=== PATIENT | female | born 1990 | race Caucasian/White ===

== ENCOUNTER 2016-09-11 21:41 | Emergency (ER) | payer BC ==
[2016-09-11 21:53] VITALS: RESP 18
[2016-09-11] MEDS ORDERED: HYDROmorphone 1 MG/ML 1 ML SYRINGE IVP STA (22:06)
[2016-09-11] MEDS ORDERED: SODIUM CHLORIDE 0.9% 1,000 ML IV STA (22:06)
[2016-09-11] MEDS ORDERED: ONDANSETRON 4 MG/2 ML VIAL IVP STA (22:06)
--- NOTE | 2016-09-11 22:14 | ED ---
General Adult HPI - General Chief complaint: Abdominal Pain Stated complaint: kidney pain/vomiting Time Seen by Provider: 09/11/16 21:59 Source: patient, RN notes reviewed Mode of arrival: ambulatory Limitations: no limitations - History of Present Illness Initial comments: Patient 26-year-old female who presents emergency room today with chief complaint flank pain. Patient does admit to a history of kidney stones and kidney infections. She states that she's had pain over the past week. States is consistent with kidney stone or kidney infection that she's had in the past. She does admit to episodes of nausea and vomiting. States she woke up this morning noticed some numbness tingling going to the left arm. She states she is unsure if she slept fine. She states pain is reproduced with movements and feels the muscles tighten in the left trapezius. Patient denies any specific injury or trauma. Denies any other complaints associated symptoms at this time. Patient denies any recent fever, chills, shortness of breath, chest pain, back pain, abdominal pain, nausea or vomiting, numbness or tingling, dysuria or hematuria, constipation or diarrhea, headaches or visual changes, or any other complaints. - Related Data Home Medications Medication Instructions Recorded Confirmed Ferrous Sulfate [Feosol] 325 mg PO DAILY 09/11/16 09/11/16 Ibuprofen [Motrin] 600 mg PO Q6HR PRN 09/11/16 09/11/16 Multivitamins, Thera [Multivitamin 1 tab PO DAILY 09/11/16 09/11/16 (formulary)] diphenhydrAMINE HCL [Benadryl] 25 mg PO HS 09/11/16 09/11/16 Previous Rx's Medication Instructions Recorded Ondansetron Odt [Zofran ODT] 4 mg PO Q8HR PRN #20 tab 09/11/16 Allergies Allergy/AdvReac Type Severity Reaction Status Date / Time azithromycin Allergy Rash/Hives Verified 09/11/16 22:47 codeine phosphate Allergy Rash/Hives Verified 09/11/16 22:47 [From Tylenol-Codeine #3] metoclopramide HCl Allergy Rash/Hives Verified 09/11/16 22:47 [From Reglan] morphine Allergy Rash/Hives Verified 09/11/16 22:47 ondansetron HCl Allergy Itching Verified 09/11/16 22:47 [From Zofran (as hydrochloride)] Penicillins Allergy Rash/Hives Verified 09/11/16 22:47 Sulfa (Sulfonamide Allergy Rash/Hives Verified 09/11/16 22:47 Antibiotics) Review of Systems ROS Statement: Those systems with pertinent positive or pertinent negative responses have been documented in the HPI. ROS Other: All systems not noted in ROS Statement are negative. Past Medical History Additional Past Medical History / Comment(s): Patient has had kidney stones and history of recurrent urinary tract infections. History of narcotic abuse History of Any Multi-Drug Resistant Organisms: None Reported Past Surgical History: Section Additional Past Surgical History / Comment(s): lithotripsy Past Anesthesia/Blood Transfusion Reactions: No Reported Reaction Past Psychological History: No Psychological Hx Reported Smoking Status: Never smoker Past Alcohol Use History: None Reported Past Drug Use History: None Reported - Past Family History Father Family Medical History: Cancer General Exam - General Exam Comments Initial Comments: General: The patient is awake and alert, in no distress, and does not appear acutely ill. Eye: Pupils are equal, round and reactive to light, extra-ocular movements are intact. No nystagmus. There is normal conjunctiva bilaterally. No signs of icterus. Ears, nose, mouth and throat: There are moist mucous membranes and no oral lesions. Neck: The neck is supple, there is no tenderness or JVD. Cardiovascular: There is a regular rate and rhythm. No murmur, rub or gallop is appreciated. Respiratory: Lungs are clear to auscultation, respirations are non-labored, breath sounds are equal. No wheezes, stridor, rales, or rhonchi. Gastrointestinal: Soft, non-distended, non-tender abdomen without masses or organomegaly noted. There is no rebound or guarding present. No CVA tenderness. Bowel sounds are unremarkable. Musculoskeletal: Normal ROM, no tenderness. Strength 5/5. Sensation intact. Pulses equal bilaterally 2+. Neurological: A&O x 3. CN II-XII intact, There are no obvious motor or sensory deficits. Coordination appears grossly intact. Speech is normal. Skin: Skin is warm and dry and no rashes or lesions are noted. Psychiatric: Cooperative, appropriate mood & affect, normal judgment. Limitations: no limitations Course Vital Signs 09/11/16 21:47 Temperature 98.6 F Pulse Rate 93 Respiratory 18 Rate Blood Pressure 131/90 O2 Sat by Pulse 100 Oximetry Medical Decision Making - Medical Decision Making Patient reexamined at this time shows no signs of distress. Her labs been reviewed are unremarkable. Patient's x-rays negative. Results were discussed with the patient. Patient will be discharged home at this time. Given Zofran and advised to use antibiotics which for pain. - Lab Data Result diagrams: 09/11/16 21:19 09/11/16 21:19 Lab Results 09/11/16 09/11/16 09/11/16 Range/Units 21:19 21:19 21:19 WBC 6.6 (3.8-10.6) k/uL RBC 4.42 (3.80-5.40) m/uL Hgb 12.4 (11.4-16.0) gm/dL Hct 38.1 (34.0-46.0) % MCV 86.4 (80.0-100.0) fL MCH 28.0 (25.0-35.0) pg MCHC 32.4 (31.0-37.0) g/dL RDW 14.3 (11.5-15.5) % Plt Count 343 (150-450) k/uL Neutrophils % 42 % Lymphocytes % 48 % Monocytes % 4 % Eosinophils % 3 % Basophils % 1 % Neutrophils # 2.8 (1.3-7.7) k/uL Lymphocytes # 3.2 (1.0-4.8) k/uL Monocytes # 0.3 (0-1.0) k/uL Eosinophils # 0.2 (0-0.7) k/uL Basophils # 0.1 (0-0.2) k/uL Sodium 141 (137-145) mmol/L Potassium 4.3 (3.5-5.1) mmol/L Chloride 108 H (98-107) mmol/L Carbon Dioxide 23 (22-30) mmol/L Anion Gap 10 mmol/L BUN 9 (7-17) mg/dL Creatinine 0.81 (0.52-1.04) mg/dL Est GFR (MDRD) Af Amer >60 (>60 ml/min/1.73 sqM) Est GFR (MDRD) Non-Af >60 (>60 ml/min/1.73 sqM) Glucose 80 (74-99) mg/dL Calcium 9.7 (8.4-10.2) mg/dL Total Bilirubin 0.5 (0.2-1.3) mg/dL AST 25 (14-36) U/L ALT 25 (9-52) U/L Alkaline Phosphatase 63 (38-126) U/L Total Protein 8.6 H (6.3-8.2) g/dL Albumin 4.6 (3.5-5.0) g/dL Amylase 60 (30-110) U/L Lipase 57 (23-300) U/L Urine Color Urine Appearance (Clear) Urine pH (5.0-8.0) Ur Specific [place] (1.001-1.035) Urine Protein (Negative) Urine Glucose (UA) (Negative) Urine Ketones (Negative) Urine Blood (Negative) Urine Nitrite (Negative) Urine Bilirubin (Negative) Urine Urobilinogen (<2.0) mg/dL Ur Leukocyte Esterase (Negative) Urine RBC (0-5) /hpf Urine WBC (0-5) /hpf Ur Squamous Epith Cells (0-4) /hpf Urine Mucus (None) /hpf Urine HCG, Qual Not Detected (Not Detectd) 09/11/16 Range/Units 21:19 WBC (3.8-10.6) k/uL RBC (3.80-5.40) m/uL Hgb (11.4-16.0) gm/dL Hct (34.0-46.0) % MCV (80.0-100.0) fL MCH (25.0-35.0) pg MCHC (31.0-37.0) g/dL RDW (11.5-15.5) % Plt Count (150-450) k/uL Neutrophils % % Lymphocytes % % Monocytes % % Eosinophils % % Basophils % % Neutrophils # (1.3-7.7) k/uL Lymphocytes # (1.0-4.8) k/uL Monocytes # (0-1.0) k/uL Eosinophils # (0-0.7) k/uL Basophils # (0-0.2) k/uL Sodium (137-145) mmol/L Potassium (3.5-5.1) mmol/L Chloride (98-107) mmol/L Carbon Dioxide (22-30) mmol/L Anion Gap mmol/L BUN (7-17) mg/dL Creatinine (0.52-1.04) mg/dL Est GFR (MDRD) Af Amer (>60 ml/min/1.73 sqM) Est GFR (MDRD) Non-Af (>60 ml/min/1.73 sqM) Glucose (74-99) mg/dL Calcium (8.4-10.2) mg/dL Total Bilirubin (0.2-1.3) mg/dL AST (14-36) U/L ALT (9-52) U/L Alkaline Phosphatase (38-126) U/L Total Protein (6.3-8.2) g/dL Albumin (3.5-5.0) g/dL Amylase (30-110) U/L Lipase (23-300) U/L Urine Color Yellow Urine Appearance Cloudy H (Clear) Urine pH 6.0 (5.0-8.0) Ur Specific [place] 1.019 (1.001-1.035) Urine Protein Negative (Negative) Urine Glucose (UA) Negative (Negative) Urine Ketones Negative (Negative) Urine Blood Negative (Negative) Urine Nitrite Negative (Negative) Urine Bilirubin Negative (Negative) Urine Urobilinogen <2.0 (<2.0) mg/dL Ur Leukocyte Esterase Negative (Negative) Urine RBC 2 (0-5) /hpf Urine WBC 1 (0-5) /hpf Ur Squamous Epith Cells 4 (0-4) /hpf Urine Mucus Rare H (None) /hpf Urine HCG, Qual (Not Detectd) Disposition Clinical Impression: Flank pain Disposition: HOME SELF-CARE Condition: Good Instructions: Abdominal Pain (ED) Additional Instructions: Please use medication as discussed. Please follow-up with family doctor in the next 2 days of symptoms have not improved. Please return to emergency room if the symptoms increase or worsen or for any other concerns. Prescriptions: Ondansetron Odt [Zofran ODT] 4 mg PO Q8HR PRN #20 tab PRN Reason: Nausea Time of Disposition: 23:35
[2016-09-11] MEDS ORDERED: diphenhydrAMINE 50 MG/ML 1 ML VIAL IVP STA (22:25)
[2016-09-11 22:38] LABS: Basophils # (A) 0.1 k/uL (0-0.2); Basophils % (A) 1 %; CH 28.4; CHCM 32.9; Eosinophils # (A) 0.2 k/uL (0-0.7); Eosinophils % (A) 3 %; HCT 38.1 % (34.0-46.0); HDW 2.63; HGB 12.4 gm/dL (11.4-16.0); Luc # (Auto) 0.13; Luc % (Auto) 2; Lymphocytes # (A) 3.2 k/uL (1.0-4.8); Lymphocytes % (A) 48 %; MCHC 32.4 g/dL (31.0-37.0); MCV 86.4 fL (80.0-100.0); Mean Platelet Volume 6.2; Monocytes # (A) 0.3 k/uL (0-1.0); Monocytes % (A) 4 %; Neutrophils # (A) 2.8 k/uL (1.3-7.7); Neutrophils % (A) 42 %; RBC 4.42 m/uL (3.80-5.40); RDW 14.3 % (11.5-15.5); WBC 6.6 k/uL (3.8-10.6); WBC (Perox) 6.54
[2016-09-11 22:48] LABS: ALT 25 U/L (9-52); AST 25 U/L (14-36); Alkaline Phosphatase 63 U/L (38-126); Amylase 60 U/L (30-110); Anion Gap 10 mmol/L; Blood Urea Nitrogen 9 mg/dL (7-17); Calcium 9.7 mg/dL (8.4-10.2); Carbon Dioxide 23 mmol/L (22-30); Chloride 108 mmol/L (98-107); Glucose 80 mg/dL (74-99); Non-African American GFR(MDRD) >60 (>60 ml/min/1.73 sqM); Potassium 4.3 mmol/L (3.5-5.1); Sodium 141 mmol/L (137-145); Total Bilirubin 0.5 mg/dL (0.2-1.3); Total Protein 8.6 g/dL (6.3-8.2)
[2016-09-11 22:50] LABS: Appearance,Urine Cloudy (Clear); Bilirubin,Urine Negative (Negative); Glucose,Urine (UA) Negative (Negative); Ketones,Urine Negative (Negative); Leukocyte Esterase,Urine Negative (Negative); Mucus,Urine Rare /hpf; Nitrite,Urine Negative (Negative); Particle Count 1178; Protein,Urine Negative (Negative); RBC,Urine 2 /hpf (0-5); Specific Gravity,Urine 1.019 (1.001-1.035); Squamous Epithelial Cell,Urine 4 /hpf (0-4); UA Billing (MACRO vs. MICRO) MICRO; Urobilinogen,Urine <2.0 mg/dL (<2.0); WBC,Urine 1 /hpf (0-5)
--- NOTE | 2016-09-11 23:25 | XR ---
EXAM: XR Abdomen, 1 View CLINICAL HISTORY: Reason: abdominal pain TECHNIQUE: Frontal supine view of the abdomen/pelvis. COMPARISON: 01/03/16 single view. FINDINGS: Intraperitoneal space: No gross free air is seen on this single supine image, which excludes the diaphragms. Of incidental note is a curvilinear air-filled tubular structure within the lower pelvis, beginning just above the symphysis pubis and directed superiorly towards the right. Gastrointestinal tract: Unremarkable. No dilation. Mild to moderate amount of colonic stool throughout. Bones/joints: Minimal rightward curvature of the lumbar spine. IMPRESSION: 1. Grossly normal bowel gas pattern, with mild to moderate amount of colonic stool. 2. Air-filled tubular structure projecting over the lower pelvis, possibly representing a vaginal tampon. Correlate clinically.
[2016-09-11 23:45] VITALS: BP 132/74; PULSE 89; TEMP 97.9
== END 2016-09-11 23:47 | disposition home or self-care (01) ==
LOC: EC 21:41
DX: R10.9 Unspecified abdominal pain (principal); R11.2 Nausea with vomiting, unspecified; R20.0 Anesthesia of skin; Z79.899 Other long term (current) drug therapy; Z88.1 Allergy status to other antibiotic agents; Z88.5 Allergy status to narcotic agent; Z88.0 Allergy status to penicillin; Z88.2 Allergy status to sulfonamides; Z88.8 Allergy status to other drugs, medicaments and biological substances
CPT/HCPCS: 36415; 80053; 82150; 83690; 85025; 81001; 81025; 74000; 99284; 96374; 96375 ×2; 96361; J1200; J2405; J1170

== ENCOUNTER 2016-10-15 21:57 | Emergency (ER) | payer BC ==
[2016-10-15 22:02] VITALS: RESP 18
[2016-10-15] MEDS ORDERED: HYDROmorphone 1 MG/ML 1 ML SYRINGE IVP STA (23:00)
[2016-10-15] MEDS ORDERED: RX INFO: IV CONTRAST WAS GIVEN 1 EACH MISC MISCELLANE PRN (23:00)
[2016-10-15] MEDS ORDERED: SODIUM CHLORIDE 0.9% 1,000 ML IV STA (23:00)
[2016-10-15] MEDS ORDERED: ONDANSETRON 4 MG/2 ML VIAL IVP STA (23:00)
[2016-10-15] MEDS ORDERED: diphenhydrAMINE 50 MG/ML 1 ML VIAL IVP STA (23:02)
--- NOTE | 2016-10-15 23:37 | ED ---
Abdominal Pain HPI - General Chief Complaint: Abdominal Pain Stated Complaint: vomiting Time Seen by Provider: 10/15/16 22:46 Source: patient Mode of arrival: ambulatory Limitations: no limitations - History of Present Illness Initial Comments: Been vomiting for the last 2 days does have a history of kidney stones not complaining about abdominal pain in the periumbilical region also threw up about more than 20 times in last 2 days also noticed that she been producing real easy. He denies any fever no chills no diarrhea no frequency urgency dysuria no headaches no neck stiffness - Related Data Home Medications Medication Instructions Recorded Confirmed diphenhydrAMINE HCL [Benadryl] 25 mg PO BID PRN 09/11/16 10/15/16 Ferrous Sulfate [Feosol] 650 mg PO DAILY 10/15/16 10/15/16 Ibuprofen [Motrin] 400 mg PO Q6HR PRN 10/15/16 10/15/16 Pimtrea 1 tab PO DAILY 10/15/16 10/15/16 Previous Rx's Medication Instructions Recorded HYDROmorphone [Dilaudid] 2 mg PO Q8H PRN #15 tab 10/16/16 Allergies Allergy/AdvReac Type Severity Reaction Status Date / Time azithromycin Allergy Rash/Hives Verified 10/15/16 23:11 codeine phosphate Allergy Rash/Hives Verified 10/15/16 23:11 [From Tylenol-Codeine #3] metoclopramide HCl Allergy Rash/Hives Verified 10/15/16 23:11 [From Reglan] morphine Allergy Rash/Hives Verified 10/15/16 23:11 ondansetron HCl Allergy Itching Verified 10/15/16 23:11 [From Zofran (as hydrochloride)] Penicillins Allergy Rash/Hives Verified 10/15/16 23:11 Sulfa (Sulfonamide Allergy Rash/Hives Verified 10/15/16 23:11 Antibiotics) Review of Systems ROS Statement: Those systems with pertinent positive or pertinent negative responses have been documented in the HPI. ROS Other: All systems not noted in ROS Statement are negative. Past Medical History Additional Past Medical History / Comment(s): Patient has had kidney stones and history of recurrent urinary tract infections. History of narcotic abuse History of Any Multi-Drug Resistant Organisms: None Reported Past Surgical History: Section Additional Past Surgical History / Comment(s): lithotripsy Past Anesthesia/Blood Transfusion Reactions: No Reported Reaction Past Psychological History: No Psychological Hx Reported Smoking Status: Never smoker Past Alcohol Use History: None Reported Past Drug Use History: None Reported - Past Family History Father Family Medical History: Cancer General Exam - General Exam Comments Initial Comments: General: The patient is awake and alert, she is very anxious Skin: Skin is warm and dry and no rashes or lesions are noted. Eye: Pupils are equal, round and reactive to light, extra-ocular movements are intact; there is normal conjunctiva bilaterally. Ears, nose, mouth and throat: There are moist mucous membranes and no oral lesions. Neck: The neck is supple, there is no tenderness or JVD. Cardiovascular: There is a regular rate and rhythm. No murmur, rub or gallop is appreciated. Respiratory: To auscultation bilateral, no wheezing no rhonchi no distress respiratory frederick noticed Gastrointestinal: She is tender in the right lower quadrant area, tender and paraumbilical area and tender over the both flanks right to left Back: Tender over right and left flank areas Musculoskeletal: Normal ROM, no tenderness, There is no pedal edema. There is no calf tenderness or swelling. No cords were appreciated. Neurological: CN II-XII intact, Cranial nerves III through XII are intact. There are no obvious motor or sensory deficits. Coordination appears grossly intact. Speech is normal. Psychiatric: Cooperative, appropriate mood & affect, normal judgment. Limitations: no limitations Course Vital Signs 10/15/16 10/16/16 21:59 00:11 Temperature 97.7 F Pulse Rate 71 65 Respiratory 18 18 Rate Blood Pressure 118/65 127/65 O2 Sat by Pulse 99 100 Oximetry - Reevaluation(s) Reevaluation #1: 10/16/16 02:14 He was reassessed several times last reassessment was done at 2 AM, she still having some pain at this point I discussed all her labs including CT of the abdomen CBC, platelets, comprehensive metabolic panel, amylase, lipase, beta- hCG and urinalysis were discussed with the unfortunately she has a 2 kidney stones 01 form is a 2.6 mm another one is a 1.6 mm. Her this time she will be given a Dilaudid 1 mg IV as well as Toradol 30 mg IV to take care of her pain considering this is hopefully she will pass stools and there was no mention in radiology report of the hydroureter or hydronephrosis she be sent home on a prescription of Dilaudid and she was advised to take some Motrin along with Medical Decision Making - Lab Data Result diagrams: 10/16/16 00:37 10/16/16 00:37 Lab Results 10/15/16 10/15/16 10/16/16 Range/Units 23:42 23:42 00:37 WBC 8.8 (3.8-10.6) k/uL RBC 3.89 (3.80-5.40) m/uL Hgb 10.8 L (11.4-16.0) gm/dL Hct 31.8 L (34.0-46.0) % MCV 81.8 (80.0-100.0) fL MCH 27.9 (25.0-35.0) pg MCHC 34.1 (31.0-37.0) g/dL RDW 13.5 (11.5-15.5) % Plt Count 291 (150-450) k/uL Neutrophils % 57 % Lymphocytes % 34 % Monocytes % 5 % Eosinophils % 2 % Basophils % 1 % Neutrophils # 5.0 (1.3-7.7) k/uL Lymphocytes # 3.0 (1.0-4.8) k/uL Monocytes # 0.5 (0-1.0) k/uL Eosinophils # 0.2 (0-0.7) k/uL Basophils # 0.1 (0-0.2) k/uL Sodium (137-145) mmol/L Potassium (3.5-5.1) mmol/L Chloride (98-107) mmol/L Carbon Dioxide (22-30) mmol/L Anion Gap mmol/L BUN (7-17) mg/dL Creatinine (0.52-1.04) mg/dL Est GFR (MDRD) Af Amer (>60 ml/min/1.73 sqM) Est GFR (MDRD) Non-Af (>60 ml/min/1.73 sqM) Glucose (74-99) mg/dL Calcium (8.4-10.2) mg/dL Total Bilirubin (0.2-1.3) mg/dL AST (14-36) U/L ALT (9-52) U/L Alkaline Phosphatase (38-126) U/L Total Protein (6.3-8.2) g/dL Albumin (3.5-5.0) g/dL Amylase (30-110) U/L Lipase (23-300) U/L Urine Color Yellow Urine Appearance Cloudy H (Clear) Urine pH 6.0 (5.0-8.0) Ur Specific [place] 1.021 (1.001-1.035) Urine Protein Trace H (Negative) Urine Glucose (UA) Negative (Negative) Urine Ketones Negative (Negative) Urine Blood Trace H (Negative) Urine Nitrite Negative (Negative) Urine Bilirubin Negative (Negative) Urine Urobilinogen 2.0 (<2.0) mg/dL Ur Leukocyte Esterase Small H (Negative) Urine RBC 3 (0-5) /hpf Urine WBC 8 H (0-5) /hpf Ur Squamous Epith Cells 5 H (0-4) /hpf Calcium Oxalate Crystal Moderate H (None) /hpf Urine Mucus Few H (None) /hpf Urine HCG, Qual Not Detected (Not Detectd) 10/16/16 Range/Units 00:37 WBC (3.8-10.6) k/uL RBC (3.80-5.40) m/uL Hgb (11.4-16.0) gm/dL Hct (34.0-46.0) % MCV (80.0-100.0) fL MCH (25.0-35.0) pg MCHC (31.0-37.0) g/dL RDW (11.5-15.5) % Plt Count (150-450) k/uL Neutrophils % % Lymphocytes % % Monocytes % % Eosinophils % % Basophils % % Neutrophils # (1.3-7.7) k/uL Lymphocytes # (1.0-4.8) k/uL Monocytes # (0-1.0) k/uL Eosinophils # (0-0.7) k/uL Basophils # (0-0.2) k/uL Sodium 140 (137-145) mmol/L Potassium 4.4 (3.5-5.1) mmol/L Chloride 109 H (98-107) mmol/L Carbon Dioxide 24 (22-30) mmol/L Anion Gap 7 mmol/L BUN 9 (7-17) mg/dL Creatinine 0.70 (0.52-1.04) mg/dL Est GFR (MDRD) Af Amer >60 (>60 ml/min/1.73 sqM) Est GFR (MDRD) Non-Af >60 (>60 ml/min/1.73 sqM) Glucose 91 (74-99) mg/dL Calcium 9.1 (8.4-10.2) mg/dL Total Bilirubin 0.5 (0.2-1.3) mg/dL AST 32 (14-36) U/L ALT 31 (9-52) U/L Alkaline Phosphatase 46 (38-126) U/L Total Protein 7.2 (6.3-8.2) g/dL Albumin 4.1 (3.5-5.0) g/dL Amylase 54 (30-110) U/L Lipase 47 (23-300) U/L Urine Color Urine Appearance (Clear) Urine pH (5.0-8.0) Ur Specific [place] (1.001-1.035) Urine Protein (Negative) Urine Glucose (UA) (Negative) Urine Ketones (Negative) Urine Blood (Negative) Urine Nitrite (Negative) Urine Bilirubin (Negative) Urine Urobilinogen (<2.0) mg/dL Ur Leukocyte Esterase (Negative) Urine RBC (0-5) /hpf Urine WBC (0-5) /hpf Ur Squamous Epith Cells (0-4) /hpf Calcium Oxalate Crystal (None) /hpf Urine Mucus (None) /hpf Urine HCG, Qual (Not Detectd) Disposition Clinical Impression: Flank pain, Abdominal pain, Bilateral nephrolithiasis Disposition: HOME SELF-CARE Condition: Good Instructions: Abdominal Pain (ED) Prescriptions: HYDROmorphone [Dilaudid] 2 mg PO Q8H PRN #15 tab PRN Reason: Pain Referrals: Scot Smith MD [Primary Care Provider] - 1-2 days Leroy Lackey MD [STAFF PHYSICIAN] - 1-2 days
[2016-10-16 00:12] LABS: Appearance,Urine Cloudy (Clear); Bilirubin,Urine Negative (Negative); Calcium Oxalate Crystals,Urine Moderate /hpf; Glucose,Urine (UA) Negative (Negative); Ketones,Urine Negative (Negative); Leukocyte Esterase,Urine Small (Negative); Mucus,Urine Few /hpf; Nitrite,Urine Negative (Negative); Particle Count 4559; Protein,Urine Trace (Negative); RBC,Urine 3 /hpf (0-5); Specific Gravity,Urine 1.021 (1.001-1.035); Squamous Epithelial Cell,Urine 5 /hpf (0-4); UA Billing (MACRO vs. MICRO) MICRO; WBC,Urine 8 /hpf (0-5)
[2016-10-16 00:50] LABS: Basophils # (A) 0.1 k/uL (0-0.2); Basophils % (A) 1 %; CH 28.9; CHCM 35.5; Eosinophils # (A) 0.2 k/uL (0-0.7); Eosinophils % (A) 2 %; HCT 31.8 % (34.0-46.0); HDW 3.07; HGB 10.8 gm/dL (11.4-16.0); Luc # (Auto) 0.16; Luc % (Auto) 2; Lymphocytes % (A) 34 %; MCH 27.9 pg (25.0-35.0); MCHC 34.1 g/dL (31.0-37.0); MCV 81.8 fL (80.0-100.0); Mean Platelet Volume 7.6; Monocytes # (A) 0.5 k/uL (0-1.0); Monocytes % (A) 5 %; Neutrophils % (A) 57 %; RBC 3.89 m/uL (3.80-5.40); RDW 13.5 % (11.5-15.5); WBC 8.8 k/uL (3.8-10.6); WBC (Perox) 9.33
[2016-10-16 00:58] LABS: ALT 31 U/L (9-52); AST 32 U/L (14-36); Alkaline Phosphatase 46 U/L (38-126); Amylase 54 U/L (30-110); Anion Gap 7 mmol/L; Blood Urea Nitrogen 9 mg/dL (7-17); Calcium 9.1 mg/dL (8.4-10.2); Carbon Dioxide 24 mmol/L (22-30); Chloride 109 mmol/L (98-107); Glucose 91 mg/dL (74-99); Non-African American GFR(MDRD) >60 (>60 ml/min/1.73 sqM); Potassium 4.4 mmol/L (3.5-5.1); Sodium 140 mmol/L (137-145); Total Bilirubin 0.5 mg/dL (0.2-1.3); Total Protein 7.2 g/dL (6.3-8.2)
--- NOTE | 2016-10-16 01:20 | CT ---
EXAM: CT Abdomen and Pelvis With Intravenous Contrast CLINICAL HISTORY: Reason: abdominal pain TECHNIQUE: Axial computed tomography images of the abdomen and pelvis with intravenous contrast. CTDI is 5.1 mGy and DLP is 241 mGy-cm. Axial delayed images were also obtained. CTDI is 5.2 mGy and DLP is 110 mGy-cm. This CT exam was performed using one or more of the following dose reduction techniques: automated exposure control, adjustment of the mA and/or kV according to patient size, and/or use of iterative reconstruction technique. Coronal and sagittal reformatted images were created and reviewed. COMPARISON: CT 01/08/16 FINDINGS: Lower thorax: No acute findings. ABDOMEN: Liver: Unremarkable. No mass. Gallbladder and bile ducts: Unremarkable. No calcified stones. No ductal dilation. Pancreas: Unremarkable. No mass. No ductal dilation. Spleen: Borderline enlarged spleen. Adrenals: Unremarkable. No mass. Kidneys and ureters: Left renal 2.7 mm calculus. Right renal 1.6 mm calculus. Stomach and bowel: Unremarkable. No obstruction. No mucosal thickening. Appendix: No findings to suggest acute appendicitis. PELVIS: Bladder: Unremarkable. No mass. Reproductive: Unremarkable as visualized. ABDOMEN and PELVIS: Intraperitoneal space: Trace amount of free fluid which may be physiologic. Bones/joints: No acute fracture. No dislocation. Soft tissues: Unremarkable. Vasculature: Unremarkable. No abdominal aortic aneurysm. Lymph nodes: Unremarkable. No enlarged lymph nodes. IMPRESSION: 1. Left renal 2.7 mm calculus. Right renal 1.6 mm calculus. 2. Trace amount of free fluid which may be physiologic. 3. Borderline enlarged spleen.
[2016-10-16] MEDS ORDERED: KETOROLAC 30 MG/ML 1 ML VIAL IVP STA (02:10)
[2016-10-16] MEDS ORDERED: HYDROmorphone 1 MG/ML 1 ML SYRINGE IVP STA (02:12)
[2016-10-16 02:17] VITALS: BP 113/64; PULSE 69; TEMP 97.9
== END 2016-10-16 02:33 | disposition home or self-care (01) ==
LOC: EC 21:57
DX: N20.0 Calculus of kidney (principal); Z87.442 Personal history of urinary calculi; Z79.899 Other long term (current) drug therapy; Z88.1 Allergy status to other antibiotic agents; Z88.2 Allergy status to sulfonamides; Z88.0 Allergy status to penicillin; Z88.5 Allergy status to narcotic agent; Z88.8 Allergy status to other drugs, medicaments and biological substances; Z98.890 Other specified postprocedural states
CPT/HCPCS: 99284; 96374; 96375 ×3; 96376; 96361 ×3; 36415; 80053; 82150; 83690; 85025; 81001; 81025; 87086; 74177; J1200; J2405; J1885; J1170 ×2; Q9967

== ENCOUNTER 2016-10-17 19:25 | Emergency (ER) | payer BC ==
[2016-10-17] MEDS ORDERED: KETOROLAC 30 MG/ML 1 ML VIAL IVP STA ×2 (20:33→22:36)
[2016-10-17] MEDS ORDERED: diphenhydrAMINE 50 MG/ML 1 ML VIAL IVP STA ×2 (20:33→22:36)
[2016-10-17] MEDS ORDERED: ONDANSETRON 4 MG/2 ML VIAL IVP STA (20:33)
[2016-10-17] MEDS ORDERED: HYDROmorphone 1 MG/ML 1 ML SYRINGE IVP STA ×2 (20:33→22:37)
[2016-10-17] MEDS ORDERED: SODIUM CHLORIDE 0.9% 1,000 ML IV ONE (20:33)
--- NOTE | 2016-10-17 21:04 | ED ---
Female Urogenital HPI - General Chief complaint: Urogenital Stated complaint: kidney stones Time Seen by Provider: 10/17/16 20:09 Source: patient Mode of arrival: wheelchair Limitations: no limitations - History of Present Illness Initial comments: The patient is a 26-year-old female who presents to the ED with a chief complaint of flank pain and abdominal pain. Patient states that her pain has been present over the course of the past 4 days. She states that she came to the [facility] ED when the pain began and had a CT abdomen and pelvis performed that demonstrated bilateral renal stones without any evidence of ureteral stone or obstruction. The patient also had a negative UA for hematuria. She was diagnosed with nondescript abdominal pain and discharged home with oral Dilaudid and Zofran. The patient states that she's been taking these medications without any relief of her symptoms. She states that she's also been having numbness of her upper and lower extremities. She states that this has been periodic over the course the past 6 months. The patient also cites a small amount of hematuria. Reviewing the patient's prior visits, she has been to the ED multiple times in the past for the same complaint. Reviewing the patient's MAPS, it is noted that the patient has received multiple prescriptions for narcotic medications over the course the past 6 months. In addition, the patient was on Suboxone within the past year. - Related Data Home Medications Medication Instructions Recorded Confirmed Ferrous Sulfate [Feosol] 650 mg PO DAILY 10/15/16 10/17/16 Ibuprofen [Motrin] 400 mg PO Q6HR PRN 10/15/16 10/17/16 Ondansetron Odt [Zofran Odt] 4 mg PO DAILY PRN 10/17/16 10/17/16 Previous Rx's Medication Instructions Recorded HYDROmorphone [Dilaudid] 2 mg PO Q8H PRN #15 tab 10/16/16 Nitrofurantoin Monohyd/M-Cryst 100 mg PO BID #10 capsule 10/17/16 [Macrobid 100 mg Capsule] Allergies Allergy/AdvReac Type Severity Reaction Status Date / Time azithromycin Allergy Rash/Hives Verified 10/17/16 20:16 codeine phosphate Allergy Rash/Hives Verified 10/17/16 20:16 [From Tylenol-Codeine #3] metoclopramide HCl Allergy Rash/Hives Verified 10/17/16 20:16 [From Reglan] morphine Allergy Rash/Hives Verified 10/17/16 20:16 ondansetron HCl Allergy Itching Verified 10/17/16 20:16 [From Zofran (as hydrochloride)] Penicillins Allergy Rash/Hives Verified 10/17/16 20:16 Sulfa (Sulfonamide Allergy Rash/Hives Verified 10/17/16 20:16 Antibiotics) Review of Systems ROS Statement: Those systems with pertinent positive or pertinent negative responses have been documented in the HPI. ROS Other: All systems not noted in ROS Statement are negative. Constitutional: Denies: fever, chills, weakness ENT: Denies: ear pain, throat pain Respiratory: Denies: cough, dyspnea, wheezes, hemoptysis Cardiovascular: Denies: chest pain, palpitations, dyspnea on exertion Endocrine: Denies: fatigue Gastrointestinal: Reports: abdominal pain, nausea. Denies: vomiting, diarrhea, constipation, hematemesis Genitourinary: Reports: dysuria, frequency, hematuria. Denies: urgency Musculoskeletal: Denies: back pain Skin: Denies: rash, lesions Neurological: Denies: headache, weakness, numbness Psychiatric: Denies: anxiety, depression Past Medical History Additional Past Medical History / Comment(s): Patient has had kidney stones and history of recurrent urinary tract infections. History of narcotic abuse History of Any Multi-Drug Resistant Organisms: None Reported Past Surgical History: Section Additional Past Surgical History / Comment(s): lithotripsy Past Anesthesia/Blood Transfusion Reactions: No Reported Reaction Past Psychological History: No Psychological Hx Reported Smoking Status: Never smoker Past Alcohol Use History: None Reported Past Drug Use History: None Reported - Past Family History Father Family Medical History: Cancer General Exam Limitations: no limitations General appearance: alert, in no apparent distress Head exam: Present: atraumatic, normocephalic Eye exam: Present: normal appearance, PERRL, EOMI Pupils: Present: normal accommodation ENT exam: Present: normal exam, mucous membranes dry Neck exam: Present: normal inspection, full ROM Respiratory exam: Present: normal lung sounds bilaterally. Absent: respiratory distress, wheezes, rales, rhonchi, stridor Cardiovascular Exam: Present: regular rate, normal rhythm GI/Abdominal exam: Present: soft. Absent: distended, tenderness, guarding, rebound Extremities exam: Present: normal inspection Back exam: Present: normal inspection, full ROM Neurological exam: Present: alert, oriented X3 Psychiatric exam: Present: normal affect, normal mood Skin exam: Present: warm, dry, intact Course Vital Signs 10/17/16 19:55 Temperature 99.3 F Pulse Rate 86 Respiratory 16 Rate Blood Pressure 114/71 O2 Sat by Pulse 98 Oximetry Medical Decision Making - Medical Decision Making The patient is a 26-year-old female who presents to the ED with a chief complaint of abdominal pain. Patient states that the pain is located throughout her abdomen. She states that is specifically located in the periumbilical region with radiation the bilateral flank regions. Patient denies any fevers or chills. She states the pain has been present over the course the past 4 days. She did have a computed tomography scan performed about 4 days ago that demonstrated no evidence of any acute abdominal process. Patient did have evidence of bilateral renal stones. However, there is no evidence of any ureteral stone or obstruction. As such, patient was discharged home. Patient states that she has a follow-up with urology tomorrow but could not make it to the appointment secondary to pain. Given the patient has been to the ED multiple times for the same complaint and is often not been found to have any discernible pathology, will check ultrasound of kidneys to rule out hydronephrosis and an acute abdominal series to rule out obstruction. Will recheck patient's blood work to ensure that there is no evidence of any acute infection. Check UA as well. Will treat patient with narcotic pain medications if this helps to resolve her symptoms. 11:31 PM Updated the patient of overall findings. There is no evidence of obstructing ureteral stone. Patient has renal stones present bilaterally. Otherwise, acute abdominal series demonstrates evidence of constipation. I suspect that this is secondary to the patient's use of narcotic medications on a regular basis. The patient has no hematuria or RBCs in her urine. She does have evidence of a likely UTI. Will send patient home with Macrobid. Advised patient that she would benefit from clearing her bowels with a medication like magnesium citrate. Patient has a follow-up appointment with her urologist tomorrow. I have encouraged her to keep this appointment. Answered all the patient's questions to her satisfaction. She will be discharged at this point time. - Lab Data Result diagrams: 10/17/16 21:00 10/17/16 21:00 Lab Results 10/17/16 10/17/16 10/17/16 Range/Units 21:00 21:00 21:00 WBC 8.5 (3.8-10.6) k/uL RBC 3.92 (3.80-5.40) m/uL Hgb 11.1 L (11.4-16.0) gm/dL Hct 33.7 L (34.0-46.0) % MCV 86.1 (80.0-100.0) fL MCH 28.5 (25.0-35.0) pg MCHC 33.0 (31.0-37.0) g/dL RDW 13.9 (11.5-15.5) % Plt Count 355 (150-450) k/uL Neutrophils % 57 % Lymphocytes % 34 % Monocytes % 4 % Eosinophils % 2 % Basophils % 1 % Neutrophils # 4.9 (1.3-7.7) k/uL Lymphocytes # 2.9 (1.0-4.8) k/uL Monocytes # 0.4 (0-1.0) k/uL Eosinophils # 0.2 (0-0.7) k/uL Basophils # 0.1 (0-0.2) k/uL Sodium 139 (137-145) mmol/L Potassium 3.9 (3.5-5.1) mmol/L Chloride 104 (98-107) mmol/L Carbon Dioxide 24 (22-30) mmol/L Anion Gap 11 mmol/L BUN 9 (7-17) mg/dL Creatinine 0.69 (0.52-1.04) mg/dL Est GFR (MDRD) Af Amer >60 (>60 ml/min/1.73 sqM) Est GFR (MDRD) Non-Af >60 (>60 ml/min/1.73 sqM) Glucose 72 L (74-99) mg/dL Calcium 9.3 (8.4-10.2) mg/dL Magnesium 1.9 (1.6-2.3) mg/dL Total Bilirubin 0.4 (0.2-1.3) mg/dL AST 68 H (14-36) U/L ALT 77 H (9-52) U/L Alkaline Phosphatase 71 (38-126) U/L Total Protein 7.8 (6.3-8.2) g/dL Albumin 4.3 (3.5-5.0) g/dL Urine Color Light Yellow Urine Appearance Clear (Clear) Urine pH 7.0 (5.0-8.0) Ur Specific [place] 1.009 (1.001-1.035) Urine Protein Negative (Negative) Urine Glucose (UA) Negative (Negative) Urine Ketones Negative (Negative) Urine Blood Negative (Negative) Urine Nitrite Negative (Negative) Urine Bilirubin Negative (Negative) Urine Urobilinogen <2.0 (<2.0) mg/dL Ur Leukocyte Esterase Small H (Negative) Urine RBC <1 (0-5) /hpf Urine WBC 10 H (0-5) /hpf Ur Squamous Epith Cells 1 (0-4) /hpf Urine Bacteria Rare H (None) /hpf Urine Mucus Rare H (None) /hpf Urine HCG, Qual (Not Detectd) 10/17/16 Range/Units 21:00 WBC (3.8-10.6) k/uL RBC (3.80-5.40) m/uL Hgb (11.4-16.0) gm/dL Hct (34.0-46.0) % MCV (80.0-100.0) fL MCH (25.0-35.0) pg MCHC (31.0-37.0) g/dL RDW (11.5-15.5) % Plt Count (150-450) k/uL Neutrophils % % Lymphocytes % % Monocytes % % Eosinophils % % Basophils % % Neutrophils # (1.3-7.7) k/uL Lymphocytes # (1.0-4.8) k/uL Monocytes # (0-1.0) k/uL Eosinophils # (0-0.7) k/uL Basophils # (0-0.2) k/uL Sodium (137-145) mmol/L Potassium (3.5-5.1) mmol/L Chloride (98-107) mmol/L Carbon Dioxide (22-30) mmol/L Anion Gap mmol/L BUN (7-17) mg/dL Creatinine (0.52-1.04) mg/dL Est GFR (MDRD) Af Amer (>60 ml/min/1.73 sqM) Est GFR (MDRD) Non-Af (>60 ml/min/1.73 sqM) Glucose (74-99) mg/dL Calcium (8.4-10.2) mg/dL Magnesium (1.6-2.3) mg/dL Total Bilirubin (0.2-1.3) mg/dL AST (14-36) U/L ALT (9-52) U/L Alkaline Phosphatase (38-126) U/L Total Protein (6.3-8.2) g/dL Albumin (3.5-5.0) g/dL Urine Color Urine Appearance (Clear) Urine pH (5.0-8.0) Ur Specific [place] (1.001-1.035) Urine Protein (Negative) Urine Glucose (UA) (Negative) Urine Ketones (Negative) Urine Blood (Negative) Urine Nitrite (Negative) Urine Bilirubin (Negative) Urine Urobilinogen (<2.0) mg/dL Ur Leukocyte Esterase (Negative) Urine RBC (0-5) /hpf Urine WBC (0-5) /hpf Ur Squamous Epith Cells (0-4) /hpf Urine Bacteria (None) /hpf Urine Mucus (None) /hpf Urine HCG, Qual Not Detected (Not Detectd) Disposition Clinical Impression: Bilateral flank pain, Constipation, Renal calculus, bilateral, Acute UTI Disposition: HOME SELF-CARE Condition: Good Instructions: Urinary Tract Infection in Women (ED) Additional Instructions: Please follow up with urology for your appointment tomorrow. Please return to the ED should he have worsening symptoms at home. I have prescribed an antibiotic to help treat your urinary tract infection. Prescriptions: Nitrofurantoin Monohyd/M-Cryst [Macrobid 100 mg Capsule] 100 mg PO BID #10 capsule Referrals: Scot Smith MD [Primary Care Provider] - 1-2 days (Please follow up with Dr. Smith as needed) Time of Disposition: 23:30
[2016-10-17 21:24] LABS: Appearance,Urine Clear (Clear); Bacteria,Urine Rare /hpf; Bilirubin,Urine Negative (Negative); Glucose,Urine (UA) Negative (Negative); Ketones,Urine Negative (Negative); Leukocyte Esterase,Urine Small (Negative); Mucus,Urine Rare /hpf; Nitrite,Urine Negative (Negative); Particle Count 716; Protein,Urine Negative (Negative); RBC,Urine <1 /hpf (0-5); Specific Gravity,Urine 1.009 (1.001-1.035); Squamous Epithelial Cell,Urine 1 /hpf (0-4); UA Billing (MACRO vs. MICRO) MICRO; Urobilinogen,Urine <2.0 mg/dL (<2.0); WBC,Urine 10 /hpf (0-5)
[2016-10-17 21:25] LABS: Basophils # (A) 0.1 k/uL (0-0.2); Basophils % (A) 1 %; CH 28.7; CHCM 33.4; Eosinophils # (A) 0.2 k/uL (0-0.7); Eosinophils % (A) 2 %; HCT 33.7 % (34.0-46.0); HDW 2.77; HGB 11.1 gm/dL (11.4-16.0); Luc # (Auto) 0.17; Luc % (Auto) 2; Lymphocytes # (A) 2.9 k/uL (1.0-4.8); Lymphocytes % (A) 34 %; MCH 28.5 pg (25.0-35.0); MCV 86.1 fL (80.0-100.0); Mean Platelet Volume 6.6; Monocytes # (A) 0.4 k/uL (0-1.0); Monocytes % (A) 4 %; Neutrophils # (A) 4.9 k/uL (1.3-7.7); Neutrophils % (A) 57 %; RBC 3.92 m/uL (3.80-5.40); RDW 13.9 % (11.5-15.5); WBC 8.5 k/uL (3.8-10.6); WBC (Perox) 8.72
[2016-10-17 21:39] LABS: ALT 77 U/L (9-52); AST 68 U/L (14-36); Alkaline Phosphatase 71 U/L (38-126); Anion Gap 11 mmol/L; Blood Urea Nitrogen 9 mg/dL (7-17); Calcium 9.3 mg/dL (8.4-10.2); Carbon Dioxide 24 mmol/L (22-30); Chloride 104 mmol/L (98-107); Glucose 72 mg/dL (74-99); Magnesium 1.9 mg/dL (1.6-2.3); Non-African American GFR(MDRD) >60 (>60 ml/min/1.73 sqM); Potassium 3.9 mmol/L (3.5-5.1); Sodium 139 mmol/L (137-145); Total Bilirubin 0.4 mg/dL (0.2-1.3); Total Protein 7.8 g/dL (6.3-8.2)
--- NOTE | 2016-10-17 22:34 | US ---
INDICATION: History of renal stone, rule out hydronephrosis. TECHNIQUE: Real time imaging of the kidneys is performed in sagittal and transverse projections. COMPARISON: CT abdomen and pelvis with contrast, 10/16/16. FINDINGS: The kidneys are normal in size, without hydronephrosis or perinephric collection. Right Kidney: 10.0 x 4.7 x 4.5 cm Left Kidney: 10.0 x 4.6 x 4.3 cm There are echogenic nonobstructing foci in both kidneys measuring 4 mm. Urinary bladder is normal in appearance. Bilateral ureteral jets are visualized. IMPRESSION: 1. No evidence of hydronephrosis. 2. Nonobstructing 4 mm echogenic foci in both kidneys, possibly nonobstructing stones.
--- NOTE | 2016-10-17 23:03 | XR ---
INDICATION: Abdominal pain COMPARISON: CT abdomen and pelvis 10/16/16 FINDINGS: Upright frontal view of the chest and upright and supine frontal views of the abdomen are reviewed. The lungs are clear. The cardiac and mediastinal contours are normal. No evidence of extraluminal air under the diaphragms. The abdominal films demonstrate a normal bowel gas pattern. No bowel distention or air-fluid levels. No evidence of organomegaly, abnormal calcifications or obvious soft tissue masses. The osseous structures are intact. IMPRESSION: Normal acute abdominal series.
[2016-10-17 23:54] VITALS: BP 122/84; PULSE 84; RESP 18; TEMP 98.9
== END 2016-10-17 23:53 | disposition home or self-care (01) ==
LOC: EC 19:25
DX: N20.0 Calculus of kidney (principal); N39.0 Urinary tract infection, site not specified; K59.00 Constipation, unspecified; Z79.899 Other long term (current) drug therapy; Z88.1 Allergy status to other antibiotic agents; Z88.5 Allergy status to narcotic agent; Z88.0 Allergy status to penicillin; Z88.2 Allergy status to sulfonamides; Z88.8 Allergy status to other drugs, medicaments and biological substances; Z98.890 Other specified postprocedural states
CPT/HCPCS: 99284; 96374; 96375 ×3; 96376 ×3; 96361; 36415; 80053; 83735; 85025; 81001; 81025; 87086; 74022; 76770; J1200; J2405; J1885; J1170

== ENCOUNTER 2016-10-23 23:02 | Emergency (ER) | payer BC ==
[2016-10-23] MEDS ORDERED: SODIUM CHLORIDE 0.9% 1,000 ML IV ONE (23:24)
[2016-10-23] MEDS ORDERED: KETOROLAC 30 MG/ML 1 ML VIAL IVP STA (23:24)
[2016-10-23] MEDS ORDERED: HYDROmorphone 1 MG/ML 1 ML SYRINGE IVP STA (23:25)
[2016-10-23] MEDS ORDERED: ONDANSETRON 4 MG/2 ML VIAL IVP STA (23:25)
--- NOTE | 2016-10-23 23:29 | ED ---
General Adult HPI - General Chief complaint: Nausea/Vomiting/Diarrhea Stated complaint: Bilat Flank Pain Time Seen by Provider: 10/23/16 23:14 Source: patient, RN notes reviewed, old records reviewed Mode of arrival: wheelchair Limitations: no limitations - History of Present Illness Initial comments: 26-year-old female presenting for bilateral flank pain and nausea vomiting. Patient states history of multiple kidney stones. She was seen about 2 weeks ago for similar symptoms. She states she has been having persistent pain since that time but it got much worse over the last 2 days. She states she is having difficulty keeping any food or drink down as of today. States she did try an oral Zofran at home but it didn't seem to improve her symptoms. States she did follow up with Dr. Dumont and is scheduled for lithotripsy and another procedure on November 06. She denies any fevers or chills. She does state she has hematuria associated. She denies pain associated. - Related Data Home Medications Medication Instructions Recorded Confirmed Ferrous Sulfate [Feosol] 650 mg PO DAILY 10/15/16 10/23/16 Ondansetron Odt [Zofran Odt] 4 mg PO DAILY PRN 10/17/16 10/23/16 Desog-E.estradiol/E.estradiol 1 tab PO DAILY 10/23/16 10/23/16 [Mircette 28 Day Tablet] Previous Rx's Medication Instructions Recorded HYDROcodone/APAP 5-325MG [[place] 1 tab PO Q6HR PRN #12 tab 10/24/16 5-325] Ibuprofen [Motrin] 800 mg PO Q8HR PRN #21 tab 10/24/16 Allergies Allergy/AdvReac Type Severity Reaction Status Date / Time azithromycin Allergy Rash/Hives/ Verified 10/23/16 23:11 Dyspnea codeine phosphate Allergy Rash/Hives Verified 10/23/16 23:08 [From Tylenol-Codeine #3] metoclopramide HCl Allergy Rash/Hives Verified 10/23/16 23:08 [From Reglan] morphine Allergy Rash/Hives Verified 10/23/16 23:08 ondansetron HCl Allergy Itching Verified 10/23/16 23:08 [From Zofran (as hydrochloride)] Penicillins Allergy Rash/Hives Verified 10/23/16 23:08 Sulfa (Sulfonamide Allergy Rash/Hives Verified 10/23/16 23:08 Antibiotics) Review of Systems ROS Statement: Those systems with pertinent positive or pertinent negative responses have been documented in the HPI. ROS Other: All systems not noted in ROS Statement are negative. Past Medical History Additional Past Medical History / Comment(s): Patient has had kidney stones and history of recurrent urinary tract infections. History of narcotic abuse History of Any Multi-Drug Resistant Organisms: None Reported Past Surgical History: Section Additional Past Surgical History / Comment(s): lithotripsy Past Anesthesia/Blood Transfusion Reactions: No Reported Reaction Past Psychological History: No Psychological Hx Reported Smoking Status: Never smoker Past Alcohol Use History: None Reported Past Drug Use History: None Reported - Past Family History Father Family Medical History: Cancer General Exam - General Exam Comments Initial Comments: General: Awake and Alert. No acute distress. Does not appear acutely ill. Patient appears uncomfortable. Eyes: PATRICIA, EOM intact. No nystagmus. No scleral icterus. HENT: Atraumatic, normocephalic. Mucous membranes moist. Neck: The neck is supple, there is no tenderness or JVD. Trachea midline. Cardiovascular: Regular rate and rhythm. No murmur, rub, or gallop is appreciated. Distal pulses intact. Respiratory: Lungs are clear to auscultation bilaterally. No wheezes, rales, rhonchi. No respiratory distress. Gastrointestinal: Soft, Nontender. No rebound or guarding. Non-distended. No masses or organomegaly noted. Bilateral CVA tenderness. Musculoskeletal: No tenderness. Normal ROM. No gross deformity. No strength deficits. Neurological: A&Ox3. There are no obvious motor or sensory deficits. Coordination appears grossly intact. Speech is normal. Skin: Skin is warm and dry and no rashes or lesions are noted. Psychiatric: Cooperative, appropriate mood & affect, normal judgment. Limitations: no limitations Course Vital Signs 10/23/16 23:05 Temperature 99.9 F H Pulse Rate 86 Respiratory 16 Rate Blood Pressure 133/79 O2 Sat by Pulse 100 Oximetry Medical Decision Making - Medical Decision Making 26 y/o female presenting for B/L flank pain. Pt with history of recurrent renal stones. Patient has follow-up with Dr. Dumont on 11/06/2016. Patient in no acute distress on initial examination. Given pain and nausea medications and IV fluids. Lab work was performed which is grossly unremarkable. UA without evidence of infection. Renal ultrasound without evidence of hydronephrosis. Low suspicion of complicated or obstructive process at this time. Discussed continued pain management Rx for [place] provided. Pt states she has other Rx for Zofran she can fill. Discussed close PCP follow-up for further pain management. Discussed concerning signs symptoms for immediate return to the ED. Patient agreeable with plan and discharge home. - Lab Data Result diagrams: 10/24/16 00:05 10/24/16 00:05 Lab Results 10/24/16 10/24/16 10/24/16 Range/Units 00:05 00:05 00:05 WBC 7.6 (3.8-10.6) k/uL RBC 4.23 (3.80-5.40) m/uL Hgb 11.9 (11.4-16.0) gm/dL Hct 36.2 (34.0-46.0) % MCV 85.6 (80.0-100.0) fL MCH 28.2 (25.0-35.0) pg MCHC 33.0 (31.0-37.0) g/dL RDW 13.8 (11.5-15.5) % Plt Count 355 (150-450) k/uL Neutrophils % 51 % Lymphocytes % 40 % Monocytes % 4 % Eosinophils % 2 % Basophils % 1 % Neutrophils # 3.9 (1.3-7.7) k/uL Lymphocytes # 3.0 (1.0-4.8) k/uL Monocytes # 0.3 (0-1.0) k/uL Eosinophils # 0.1 (0-0.7) k/uL Basophils # 0.1 (0-0.2) k/uL Sodium 142 (137-145) mmol/L Potassium 4.3 (3.5-5.1) mmol/L Chloride 109 H (98-107) mmol/L Carbon Dioxide 21 L (22-30) mmol/L Anion Gap 12 mmol/L BUN 15 (7-17) mg/dL Creatinine 0.80 (0.52-1.04) mg/dL Est GFR (MDRD) Af Amer >60 (>60 ml/min/1.73 sqM) Est GFR (MDRD) Non-Af >60 (>60 ml/min/1.73 sqM) Glucose 94 (74-99) mg/dL Calcium 9.8 (8.4-10.2) mg/dL Urine Color Urine Appearance (Clear) Urine pH (5.0-8.0) Ur Specific [place] (1.001-1.035) Urine Protein (Negative) Urine Glucose (UA) (Negative) Urine Ketones (Negative) Urine Blood (Negative) Urine Nitrite (Negative) Urine Bilirubin (Negative) Urine Urobilinogen (<2.0) mg/dL Ur Leukocyte Esterase (Negative) Urine HCG, Qual Not Detected (Not Detectd) 10/24/16 Range/Units 00:05 WBC (3.8-10.6) k/uL RBC (3.80-5.40) m/uL Hgb (11.4-16.0) gm/dL Hct (34.0-46.0) % MCV (80.0-100.0) fL MCH (25.0-35.0) pg MCHC (31.0-37.0) g/dL RDW (11.5-15.5) % Plt Count (150-450) k/uL Neutrophils % % Lymphocytes % % Monocytes % % Eosinophils % % Basophils % % Neutrophils # (1.3-7.7) k/uL Lymphocytes # (1.0-4.8) k/uL Monocytes # (0-1.0) k/uL Eosinophils # (0-0.7) k/uL Basophils # (0-0.2) k/uL Sodium (137-145) mmol/L Potassium (3.5-5.1) mmol/L Chloride (98-107) mmol/L Carbon Dioxide (22-30) mmol/L Anion Gap mmol/L BUN (7-17) mg/dL Creatinine (0.52-1.04) mg/dL Est GFR (MDRD) Af Amer (>60 ml/min/1.73 sqM) Est GFR (MDRD) Non-Af (>60 ml/min/1.73 sqM) Glucose (74-99) mg/dL Calcium (8.4-10.2) mg/dL Urine Color Yellow Urine Appearance Clear (Clear) Urine pH 7.0 (5.0-8.0) Ur Specific [place] 1.024 (1.001-1.035) Urine Protein 1+ (Negative) Urine Glucose (UA) Negative (Negative) Urine Ketones Negative (Negative) Urine Blood Large (Negative) Urine Nitrite Negative (Negative) Urine Bilirubin Negative (Negative) Urine Urobilinogen <2.0 (<2.0) mg/dL Ur Leukocyte Esterase Negative (Negative) Urine HCG, Qual (Not Detectd) - Radiology Data Radiology results: report reviewed, image reviewed Disposition Clinical Impression: Bilateral flank pain, Hx of renal calculi, Nausea and vomiting Disposition: HOME SELF-CARE Condition: Stable Instructions: Renal Colic (ED), Acute Nausea and Vomiting (ED), Flank Pain (ED) Prescriptions: HYDROcodone/APAP 5-325MG [[place] 5-325] 1 tab PO Q6HR PRN #12 tab PRN Reason: Pain Ibuprofen [Motrin] 800 mg PO Q8HR PRN #21 tab PRN Reason: Pain Referrals: Scot Smith MD [Primary Care Provider] - 1-2 days Time of Disposition: 01:06
[2016-10-24] MEDS ORDERED: diphenhydrAMINE 50 MG/ML 1 ML VIAL IVP STA (00:08)
[2016-10-24 00:20] LABS: Basophils # (A) 0.1 k/uL (0-0.2); Basophils % (A) 1 %; CH 28.2; CHCM 33.1; Eosinophils # (A) 0.1 k/uL (0-0.7); Eosinophils % (A) 2 %; HCT 36.2 % (34.0-46.0); HDW 3.08; HGB 11.9 gm/dL (11.4-16.0); Luc # (Auto) 0.16; Luc % (Auto) 2; Lymphocytes % (A) 40 %; MCH 28.2 pg (25.0-35.0); MCV 85.6 fL (80.0-100.0); Mean Platelet Volume 7.3; Monocytes # (A) 0.3 k/uL (0-1.0); Monocytes % (A) 4 %; Neutrophils # (A) 3.9 k/uL (1.3-7.7); Neutrophils % (A) 51 %; RBC 4.23 m/uL (3.80-5.40); RDW 13.8 % (11.5-15.5); WBC 7.6 k/uL (3.8-10.6); WBC (Perox) 7.44
[2016-10-24 00:41] LABS: Anion Gap 12 mmol/L; Blood Urea Nitrogen 15 mg/dL (7-17); Calcium 9.8 mg/dL (8.4-10.2); Carbon Dioxide 21 mmol/L (22-30); Chloride 109 mmol/L (98-107); Glucose 94 mg/dL (74-99); Non-African American GFR(MDRD) >60 (>60 ml/min/1.73 sqM); Potassium 4.3 mmol/L (3.5-5.1); Sodium 142 mmol/L (137-145)
[2016-10-24 00:50] LABS: Appearance,Urine Clear (Clear); Specific Gravity,Urine 1.024 (1.001-1.035)
[2016-10-24 00:51] LABS: Bilirubin,Urine Negative (Negative); Glucose,Urine (UA) Negative (Negative); Ketones,Urine Negative (Negative); Protein,Urine 1+ (Negative)
[2016-10-24 00:52] LABS: Leukocyte Esterase,Urine Negative (Negative); Nitrite,Urine Negative (Negative); UA Billing (MACRO vs. MICRO) MICRO; Urobilinogen,Urine <2.0 mg/dL (<2.0)
--- NOTE | 2016-10-24 01:06 | US ---
EXAM: US Retroperitoneal Complete, Renal CLINICAL HISTORY: Reason: Pain TECHNIQUE: Real-time ultrasound of the retroperitoneum (complete) with image documentation. COMPARISON: 10/17/2016 renal ultrasound and 10/16/2016 CT. FINDINGS: Small echogenic foci/stones seen bilaterally on prior study are not apparent today. Right kidney: Right kidney 9.5 cm in length. No hydronephrosis. Left kidney: Left kidney 9.6 cm in length. No hydronephrosis. Bladder: Bilateral ureteral jets not visualized. However bladder is partially distended IMPRESSION: 1. No evidence of acute abnormality. 2. Small echogenic foci seen on prior, not visualized on today's study.
[2016-10-24 02:06] VITALS: BP 116/61; PULSE 72; RESP 16; TEMP 98
== END 2016-10-24 01:40 | disposition home or self-care (01) ==
LOC: EC 23:02
DX: R11.2 Nausea with vomiting, unspecified (principal); R10.9 Unspecified abdominal pain; R31.9 Hematuria, unspecified; Z79.3 Long term (current) use of hormonal contraceptives; Z79.899 Other long term (current) drug therapy; Z88.0 Allergy status to penicillin; Z88.1 Allergy status to other antibiotic agents; Z88.2 Allergy status to sulfonamides; Z88.5 Allergy status to narcotic agent; Z88.8 Allergy status to other drugs, medicaments and biological substances; Z87.442 Personal history of urinary calculi
CPT/HCPCS: 36415; 80048; 85025; 81001; 81025; 76770; 99284; 96374; 96375 ×3; 96361; J1200; J2405; J1885; J1170

== ENCOUNTER 2016-11-09 16:51 | Emergency (ER) | payer BC ==
[2016-11-09] MEDS ORDERED: diphenhydrAMINE 50 MG/ML 1 ML VIAL IVP STA ×2 (17:39→20:04)
[2016-11-09] MEDS ORDERED: ONDANSETRON 4 MG/2 ML VIAL IVP STA (17:39)
[2016-11-09] MEDS ORDERED: HYDROmorphone 1 MG/ML 1 ML SYRINGE IVP STA (17:39)
[2016-11-09] MEDS ORDERED: SODIUM CHLORIDE 0.9% 1,000 ML IV STA (17:39)
--- NOTE | 2016-11-09 17:42 | ED ---
Female Urogenital HPI - General Chief complaint: Urogenital Stated complaint: Passed Blood Clot-Post Op Time Seen by Provider: 11/09/16 17:16 Source: patient, RN notes reviewed, old records reviewed Mode of arrival: wheelchair Limitations: no limitations - History of Present Illness Initial comments: 26-year-old female presents to the ED chief complaint of bilateral flank pain. Patient reports that she had a ureteral stent placed and bilateral ureters on Friday by Dr. phyllis falk. Patient reports that today at 9 AM she was urinating and had a lot of pressure and passed a large blood clot. Patient states that she has had continuous pain since then. She reports that he's time she urinates she screams in pain. Denies any recent fever or chills. She does state that she feels nauseated. She states that she ran out of her pain medication. She did take a Zofran earlier today. Patient states that the pain radiates from her both flanks to the groin region. Patient reports that she's had multiple stents placed in the past. She reports that the stents do not have the wire attached to them. She reports that she has to go back to the office to have the stent removed. She reports that when the urologist did her surgery she did not have one large stone that she passed. She reports the urologist described her stones is sand-like. Last Menstrual Period: 09/09/16 - Related Data Home Medications Medication Instructions Recorded Confirmed Ondansetron Odt [Zofran Odt] 4 mg PO DAILY PRN 10/17/16 11/09/16 Ketorolac [Toradol] 10 mg PO QID PRN 11/09/16 11/09/16 Pimtrea 1 tab PO DAILY 11/09/16 11/09/16 diphenhydrAMINE HCL [Benadryl] 25 mg PO HS PRN 11/09/16 11/09/16 Previous Rx's Medication Instructions Recorded HYDROcodone/APAP 5-325MG [[place] 1 tab PO Q6HR PRN #12 tab 10/24/16 5-325] HYDROcodone/APAP 5-325MG [[place] 1 tab PO Q6HR PRN #12 tab 11/09/16 5-325] Allergies Allergy/AdvReac Type Severity Reaction Status Date / Time azithromycin Allergy Rash/Hives/ Verified 11/09/16 18:13 Dyspnea codeine phosphate Allergy Rash/Hives Verified 11/09/16 18:13 [From Tylenol-Codeine #3] metoclopramide HCl Allergy Rash/Hives Verified 11/09/16 18:13 [From Reglan] morphine Allergy Rash/Hives Verified 11/09/16 18:13 ondansetron HCl Allergy Itching Verified 11/09/16 18:13 [From Zofran (as hydrochloride)] Penicillins Allergy Rash/Hives Verified 11/09/16 18:13 Sulfa (Sulfonamide Allergy Rash/Hives Verified 11/09/16 18:13 Antibiotics) Review of Systems ROS Statement: Those systems with pertinent positive or pertinent negative responses have been documented in the HPI. ROS Other: All systems not noted in ROS Statement are negative. Past Medical History Past Medical History: No Reported History Additional Past Medical History / Comment(s): Patient has had kidney stones and history of recurrent urinary tract infections. History of narcotic abuse History of Any Multi-Drug Resistant Organisms: None Reported Past Surgical History: Section Additional Past Surgical History / Comment(s): lithotripsy, bilateral kidney stent Past Anesthesia/Blood Transfusion Reactions: No Reported Reaction Past Psychological History: No Psychological Hx Reported Smoking Status: Never smoker Past Alcohol Use History: None Reported Past Drug Use History: None Reported - Past Family History Father Family Medical History: Cancer General Exam - General Exam Comments Initial Comments: 26-year-old female. No acute distress. Limitations: no limitations General appearance: alert, in no apparent distress Head exam: Present: atraumatic, normocephalic, normal inspection Eye exam: Present: normal appearance, PERRL, EOMI. Absent: scleral icterus, conjunctival injection, periorbital swelling ENT exam: Present: normal exam, mucous membranes moist Neck exam: Present: normal inspection. Absent: tenderness, meningismus, lymphadenopathy Respiratory exam: Present: normal lung sounds bilaterally. Absent: respiratory distress, wheezes, rales, rhonchi, stridor Cardiovascular Exam: Present: regular rate, normal rhythm, normal heart sounds. Absent: systolic murmur, diastolic murmur, rubs, gallop, clicks GI/Abdominal exam: Present: soft, tenderness (Bilateral flank tenderness.), normal bowel sounds. Absent: distended, guarding, rebound, rigid Extremities exam: Present: normal inspection, full ROM, normal capillary refill. Absent: tenderness, pedal edema, joint swelling, calf tenderness Back exam: Present: normal inspection Neurological exam: Present: alert, oriented X3, CN II-XII intact Psychiatric exam: Present: normal affect, normal mood Skin exam: Present: warm, dry, intact, normal color. Absent: rash Course Vital Signs 11/09/16 11/09/16 17:02 18:30 Temperature 99.4 F Pulse Rate 85 79 Respiratory 16 16 Rate Blood Pressure 129/83 120/79 O2 Sat by Pulse 98 99 Oximetry Medical Decision Making - Medical Decision Making 26-year-old female chief complaint of bilateral kidney pain. She is concerned that her recent placed ureteral stents are misplaced. Patient's lab work was reviewed and negative for any acute process. She was given IV fluids and pain medication. She is resting relatively that it is time.Patient's bladder scan measured 500 mL. Ultrasounds reviewed and negative for any hydronephrosis. Patient lab work was also negative for any acute process. At this time patient will be discharged and advised to follow-up with urologist. Patient advised to remain hydrated and return if there is any worsening signs or symptoms. Discussed with Dr. Beltrán. He recommended she follows up in the office next week. - Lab Data Result diagrams: 11/09/16 18:00 11/09/16 18:00 Lab Results 11/09/16 11/09/16 11/09/16 Range/Units 18:00 18:00 18:00 WBC 9.5 (3.8-10.6) k/uL RBC 4.49 (3.80-5.40) m/uL Hgb 13.2 (11.4-16.0) gm/dL Hct 37.7 (34.0-46.0) % MCV 83.9 (80.0-100.0) fL MCH 29.3 (25.0-35.0) pg MCHC 35.0 (31.0-37.0) g/dL RDW 13.6 (11.5-15.5) % Plt Count 382 (150-450) k/uL Neutrophils % 68 % Lymphocytes % 22 % Monocytes % 4 % Eosinophils % 4 % Basophils % 1 % Neutrophils # 6.5 (1.3-7.7) k/uL Lymphocytes # 2.1 (1.0-4.8) k/uL Monocytes # 0.4 (0-1.0) k/uL Eosinophils # 0.4 (0-0.7) k/uL Basophils # 0.1 (0-0.2) k/uL Hypochromasia Slight Sodium 144 (137-145) mmol/L Potassium 4.0 (3.5-5.1) mmol/L Chloride 111 H (98-107) mmol/L Carbon Dioxide 22 (22-30) mmol/L Anion Gap 11 mmol/L BUN 15 (7-17) mg/dL Creatinine 0.91 (0.52-1.04) mg/dL Est GFR (MDRD) Af Amer >60 (>60 ml/min/1.73 sqM) Est GFR (MDRD) Non-Af >60 (>60 ml/min/1.73 sqM) Glucose 77 (74-99) mg/dL Calcium 9.6 (8.4-10.2) mg/dL Total Bilirubin 0.5 (0.2-1.3) mg/dL AST 17 (14-36) U/L ALT 27 (9-52) U/L Alkaline Phosphatase 68 (38-126) U/L Total Protein 7.8 (6.3-8.2) g/dL Albumin 4.2 (3.5-5.0) g/dL Amylase 47 (30-110) U/L Lipase 44 (23-300) U/L Urine Color Red Urine Appearance Cloudy H (Clear) Urine pH 6.0 (5.0-8.0) Ur Specific [place] 1.016 (1.001-1.035) Urine Protein 2+ H (Negative) Urine Glucose (UA) Negative (Negative) Urine Ketones Negative (Negative) Urine Blood Large H (Negative) Urine Nitrite Negative (Negative) Urine Bilirubin Negative (Negative) Urine Urobilinogen <2.0 (<2.0) mg/dL Ur Leukocyte Esterase Large H (Negative) Urine RBC >182 H (0-5) /hpf Urine WBC >182 H (0-5) /hpf Ur Squamous Epith Cells 7 H (0-4) /hpf Urine Mucus Occasional H (None) /hpf - Radiology Data Radiology results: report reviewed KUB B shows present bilateral ureteral stents. Renal ultrasound shows left renal lithiasis. No evidence of Disposition Clinical Impression: Renal/ureteral disease Disposition: HOME SELF-CARE Condition: Good Instructions: Kidney Stones (ED), Flank Pain (ED) Additional Instructions: Patient must remain hydrated. Follow-up with your urologist. Take pain medication as prescribed. Return to the emergency department if any alarming signs or symptoms occur. Prescriptions: HYDROcodone/APAP 5-325MG [[place] 5-325] 1 tab PO Q6HR PRN #12 tab PRN Reason: Pain Referrals: Scot Smith MD [Primary Care Provider] - 1-2 days Kang Dumont MD [STAFF PHYSICIAN] - 1-2 days Time of Disposition: 21:35
[2016-11-09 18:16] LABS: Appearance,Urine Cloudy (Clear); Bilirubin,Urine Negative (Negative); Glucose,Urine (UA) Negative (Negative); Ketones,Urine Negative (Negative); Leukocyte Esterase,Urine Large (Negative); Mucus,Urine Occasional /hpf; Nitrite,Urine Negative (Negative); Particle Count 11699; Protein,Urine 2+ (Negative); RBC,Urine >182 /hpf (0-5); Specific Gravity,Urine 1.016 (1.001-1.035); Squamous Epithelial Cell,Urine 7 /hpf (0-4); UA Billing (MACRO vs. MICRO) MICRO; Urobilinogen,Urine <2.0 mg/dL (<2.0); WBC,Urine >182 /hpf (0-5)
--- NOTE | 2016-11-09 18:25 | XR ---
EXAMINATION TYPE: XR KUB DATE OF EXAM: 11/09/2016 COMPARISON: NONE INDICATION: Abdomen pain TECHNIQUE: Single view abdomen upright view FINDINGS: There is a normal bowel gas pattern. Psoas margins are normal. No organomegaly is present. Bilateral ureteral stents are present. Moderate fecal debris is throughout the colon. IMPRESSION: 1. Nonspecific abdomen.
[2016-11-09 18:30] LABS: ALT 27 U/L (9-52); AST 17 U/L (14-36); Alkaline Phosphatase 68 U/L (38-126); Amylase 47 U/L (30-110); Anion Gap 11 mmol/L; Blood Urea Nitrogen 15 mg/dL (7-17); Calcium 9.6 mg/dL (8.4-10.2); Carbon Dioxide 22 mmol/L (22-30); Chloride 111 mmol/L (98-107); Glucose 77 mg/dL (74-99); Non-African American GFR(MDRD) >60 (>60 ml/min/1.73 sqM); Sodium 144 mmol/L (137-145); Total Bilirubin 0.5 mg/dL (0.2-1.3); Total Protein 7.8 g/dL (6.3-8.2)
[2016-11-09 18:50] LABS: Basophils # (A) 0.1 k/uL (0-0.2); Basophils % (A) 1 %; CH 27.4; CHCM 32.7; Eosinophils # (A) 0.4 k/uL (0-0.7); Eosinophils % (A) 4 %; HCT 37.7 % (34.0-46.0); HGB 13.2 gm/dL (11.4-16.0); Hypochromasia Slight; Luc % (Auto) 2; Lymphocytes # (A) 2.1 k/uL (1.0-4.8); Lymphocytes % (A) 22 %; MCH 29.3 pg (25.0-35.0); MCV 83.9 fL (80.0-100.0); Mean Platelet Volume 6.6; Monocytes # (A) 0.4 k/uL (0-1.0); Monocytes % (A) 4 %; Neutrophils # (A) 6.5 k/uL (1.3-7.7); Neutrophils % (A) 68 %; RBC 4.49 m/uL (3.80-5.40); RDW 13.6 % (11.5-15.5); WBC 9.5 k/uL (3.8-10.6); WBC (Perox) 9.67
[2016-11-09] MEDS ORDERED: KETOROLAC 30 MG/ML 1 ML VIAL IVP STA (19:22)
--- NOTE | 2016-11-09 20:09 | US ---
EXAMINATION TYPE: US kidneys/renal and bladder DATE OF EXAM: 11/09/2016 COMPARISON: NONE CLINICAL HISTORY: Pain bilateral flank. Had ureteral stents placed on Friday and has had pain sinc e, but is getting worse. Also the patient states she passed a large blood clot earlier today. History of nephrolithiasis. EXAM MEASUREMENTS: Right Kidney: 10.0 x 3.4 x 4.3 cm Left Kidney: 10.0 x 4.9 x 4.5 cm Limited exam due to placement of renals high under ribs. Right Kidney: Appears wnl Left Kidney: Appears to have small echogenic foci likely multiple nephrolithiasis Bladder: Stents noted, otherwise appears wnl Bilateral Jets seen: Yes There is no evidence for hydronephrosis at this point in time. Likely nephrolithiasis' seen in the L eft kidney. No masses are identified. Bilateral ureteral jets are seen. IMPRESSION: 1. Renal lithiasis without hydronephrosis. 2. Ureteral stents noted.
[2016-11-09 22:11] VITALS: BP 116/69; PULSE 80; RESP 18; TEMP 98.3
== END 2016-11-09 22:09 | disposition home or self-care (01) ==
LOC: EC 16:51
DX: N28.9 Disorder of kidney and ureter, unspecified (principal); R10.9 Unspecified abdominal pain; R11.0 Nausea; Z96.0 Presence of urogenital implants; Z87.442 Personal history of urinary calculi; Z87.440 Personal history of urinary (tract) infections; Z79.3 Long term (current) use of hormonal contraceptives; Z88.0 Allergy status to penicillin; Z88.1 Allergy status to other antibiotic agents; Z88.2 Allergy status to sulfonamides; Z88.5 Allergy status to narcotic agent; Z88.8 Allergy status to other drugs, medicaments and biological substances
CPT/HCPCS: 51798; 36415; 80053; 82150; 83690; 85025; 81001; 74000; 76770; 99284; 96374; 96375 ×3; 96376; 96361 ×4; J1200; J2405; J1885; J1170

== ENCOUNTER 2016-11-13 19:36 | Emergency (ER) | payer BC ==
[2016-11-13 19:59] VITALS: BP 152/84; PULSE 86; RESP 20; TEMP 99.1
[2016-11-13] MEDS ORDERED: DIAZEPAM 5 MG TAB PO STA (20:17)
[2016-11-13] MEDS ORDERED: HYDROcodone/APAP 5-325MG 1 EACH TAB PO STA (20:17)
[2016-11-13] MEDS ORDERED: IBUPROFEN 800 MG TAB PO STA (20:17)
--- NOTE | 2016-11-13 20:18 | ED ---
General Adult HPI - General Chief complaint: Urogenital Stated complaint: post op kidney/diarrhea & vomiting Time Seen by Provider: 11/13/16 20:05 Source: patient, RN notes reviewed, old records reviewed Mode of arrival: ambulatory Limitations: no limitations - History of Present Illness Initial comments: This is a 26-year-old female here for evaluation pain control, pain control secondary to bilateral kidney stenting, no bleeding, no dysuria. Patient ran out of pain medication. Patient has felt appointment in 5 days - Related Data Home Medications Medication Instructions Recorded Confirmed Ondansetron Odt [Zofran Odt] 4 mg PO DAILY PRN 10/17/16 11/13/16 Ketorolac [Toradol] 10 mg PO QID PRN 11/09/16 11/13/16 Pimtrea 1 tab PO DAILY 11/09/16 11/13/16 diphenhydrAMINE HCL [Benadryl] 25 mg PO HS PRN 11/09/16 11/13/16 Previous Rx's Medication Instructions Recorded HYDROcodone/APAP 5-325MG [[place] 1 tab PO Q6HR PRN #12 tab 11/09/16 5-325] Diazepam [Valium] 5 mg PO HS #10 tab 11/13/16 HYDROcodone/APAP 5-325MG [[place] 1 tab PO Q6HR PRN #30 tab 11/13/16 5-325] Ibuprofen [Motrin] 600 mg PO Q6HR #30 tab 11/13/16 Allergies Allergy/AdvReac Type Severity Reaction Status Date / Time azithromycin Allergy Rash/Hives/ Verified 11/13/16 20:20 Dyspnea codeine phosphate Allergy Rash/Hives Verified 11/13/16 20:20 [From Tylenol-Codeine #3] metoclopramide HCl Allergy Rash/Hives Verified 11/13/16 20:20 [From Reglan] morphine Allergy Rash/Hives Verified 11/13/16 20:20 Penicillins Allergy Rash/Hives Verified 11/13/16 20:20 Sulfa (Sulfonamide Allergy Rash/Hives Verified 11/13/16 20:20 Antibiotics) Review of Systems ROS Statement: Those systems with pertinent positive or pertinent negative responses have been documented in the HPI. ROS Other: All systems not noted in ROS Statement are negative. Past Medical History Past Medical History: No Reported History Additional Past Medical History / Comment(s): Patient has had kidney stones and history of recurrent urinary tract infections. History of narcotic abuse History of Any Multi-Drug Resistant Organisms: None Reported Past Surgical History: Section Additional Past Surgical History / Comment(s): lithotripsy, bilateral kidney stent Past Anesthesia/Blood Transfusion Reactions: No Reported Reaction Past Psychological History: No Psychological Hx Reported Smoking Status: Never smoker Past Alcohol Use History: None Reported Past Drug Use History: None Reported - Past Family History Father Family Medical History: Cancer General Exam Limitations: no limitations General appearance: alert, in no apparent distress Head exam: Present: atraumatic, normocephalic, normal inspection Eye exam: Present: normal appearance, PERRL, EOMI. Absent: scleral icterus, conjunctival injection, periorbital swelling ENT exam: Present: normal exam, mucous membranes moist Neck exam: Present: normal inspection. Absent: tenderness, meningismus, lymphadenopathy Respiratory exam: Present: normal lung sounds bilaterally. Absent: respiratory distress, wheezes, rales, rhonchi, stridor Cardiovascular Exam: Present: regular rate, normal rhythm, normal heart sounds. Absent: systolic murmur, diastolic murmur, rubs, gallop, clicks GI/Abdominal exam: Present: soft, normal bowel sounds. Absent: distended, tenderness, guarding, rebound, rigid Extremities exam: Present: normal inspection, full ROM, normal capillary refill. Absent: tenderness, pedal edema, joint swelling, calf tenderness Back exam: Present: normal inspection Neurological exam: Present: alert, oriented X3, CN II-XII intact Psychiatric exam: Present: normal affect, normal mood Skin exam: Present: warm, dry, intact, normal color. Absent: rash Course Vital Signs 11/13/16 19:55 Temperature 99.1 F Pulse Rate 86 Respiratory 20 Rate Blood Pressure 152/84 O2 Sat by Pulse 99 Oximetry - Reevaluation(s) Reevaluation #1: 11/13/16 20:29 Patient discussed at length regarding symptom management. Medical Decision Making - Medical Decision Making 26 a female in the ER for evaluation pain control regarding bilateral ureteral stenting, patient given pain control here in ER and can be discharged home Disposition Clinical Impression: Flank pain, Hx of renal calculi Disposition: HOME SELF-CARE Condition: Good Instructions: Kidney Stones (ED), Renal Colic (ED) Prescriptions: Diazepam [Valium] 5 mg PO HS #10 tab HYDROcodone/APAP 5-325MG [[place] 5-325] 1 tab PO Q6HR PRN #30 tab PRN Reason: Nausea Ibuprofen [Motrin] 600 mg PO Q6HR #30 tab Referrals: Scot Smith MD [Primary Care Provider] - 1-2 days
== END 2016-11-13 20:58 | disposition home or self-care (01) ==
LOC: EC 19:36
DX: R10.9 Unspecified abdominal pain (principal); Z96.0 Presence of urogenital implants; Z87.442 Personal history of urinary calculi; Z79.3 Long term (current) use of hormonal contraceptives; Z88.0 Allergy status to penicillin; Z88.1 Allergy status to other antibiotic agents; Z88.2 Allergy status to sulfonamides; Z88.5 Allergy status to narcotic agent; Z88.8 Allergy status to other drugs, medicaments and biological substances
CPT/HCPCS: 99283

== ENCOUNTER 2016-11-25 21:08 | Emergency (ER) | payer BC ==
[2016-11-25 21:21] VITALS: BP 125/82; PULSE 98; TEMP 99.3
--- NOTE | 2016-11-25 21:52 | ED ---
Upper Extremity HPI - General Chief Complaint: Extremity Injury, Upper Stated Complaint: R hand injury Time Seen by Provider: 11/25/16 21:37 Source: patient, RN notes reviewed Mode of arrival: ambulatory Limitations: no limitations - History of Present Illness Initial Comments: 26-year-old female presents emergency Department with chief complaint of right hand injury. Patient states that a lazy boy closed on her hand. Patient complains of pain along her thumb into her proximal wrist region. Patient states is worse with movement states that she has no problems moving her digits 2 through 5 but any movement with her thumb increases her pain. Patient states that she's had no prior fractures to this hand. Denies any paresthesias. - Related Data Home Medications Medication Instructions Recorded Confirmed diphenhydrAMINE HCL [Benadryl] 25 mg PO HS PRN 11/09/16 11/25/16 Previous Rx's Medication Instructions Recorded HYDROcodone/APAP 5-325MG [[place] 1 tab PO Q6HR PRN #30 tab 11/13/16 5-325] Ibuprofen [Motrin] 600 mg PO Q6HR #30 tab 11/13/16 Hydrocodone/Acetaminophen [[place] 1 tab PO Q6HR PRN #20 tab 11/25/16 5-325] Allergies Allergy/AdvReac Type Severity Reaction Status Date / Time azithromycin Allergy Rash/Hives/ Verified 11/25/16 21:55 Dyspnea codeine phosphate Allergy Rash/Hives Verified 11/25/16 21:55 [From Tylenol-Codeine #3] metoclopramide HCl Allergy Rash/Hives Verified 11/25/16 21:55 [From Reglan] morphine Allergy Rash/Hives Verified 11/25/16 21:55 Penicillins Allergy Rash/Hives Verified 11/25/16 21:55 Sulfa (Sulfonamide Allergy Rash/Hives Verified 11/25/16 21:55 Antibiotics) Review of Systems ROS Statement: Those systems with pertinent positive or pertinent negative responses have been documented in the HPI. ROS Other: All systems not noted in ROS Statement are negative. Past Medical History Past Medical History: No Reported History Additional Past Medical History / Comment(s): Patient has had kidney stones and history of recurrent urinary tract infections. History of narcotic abuse History of Any Multi-Drug Resistant Organisms: None Reported Past Surgical History: Section Additional Past Surgical History / Comment(s): lithotripsy, bilateral kidney stent Past Anesthesia/Blood Transfusion Reactions: No Reported Reaction Past Psychological History: No Psychological Hx Reported Smoking Status: Never smoker Past Alcohol Use History: None Reported Past Drug Use History: None Reported - Past Family History Father Family Medical History: Cancer General Exam Limitations: no limitations General appearance: alert, in no apparent distress Respiratory exam: Present: normal lung sounds bilaterally. Absent: respiratory distress, wheezes, rales, rhonchi, stridor Cardiovascular Exam: Present: regular rate, normal rhythm, normal heart sounds. Absent: systolic murmur, diastolic murmur, rubs, gallop, clicks Extremities exam: Present: other (Right hand there is tenderness along the first digit the proximal wrist pain with any movement there is no tenderness over the metacarpals 2 through 5 Refill less than 2 seconds of all digits) Skin exam: Present: warm, dry, intact, normal color. Absent: rash Course Vital Signs 11/25/16 21:17 Temperature 99.3 F Pulse Rate 98 Respiratory 18 Rate Blood Pressure 125/82 O2 Sat by Pulse 98 Oximetry Procedures - Orthopedic Splinting/Casting Injury #1 Side: right Upper Extremity Injury Location: hand Upper Extremity Immobilizer: thumb spica (Short arm neurovascular intact before and after procedure) Medical Decision Making - Medical Decision Making 26-year-old female presented emergency from for right hand, thumb pain. Patient does have snuffbox tenderness concerns for possible scaphoid fracture. Patient was splinted in the thumb spica splint. Patient will follow-up with orthopedics return parameters were discussed. Patient has seen Dr. Landeros in the past. Disposition Clinical Impression: Injury of right hand Disposition: HOME SELF-CARE Condition: Stable Instructions: Suspected Fracture (ED) Additional Instructions: Please return to the Emergency Department if symptoms worsen or any other concerns. Prescriptions: Hydrocodone/Acetaminophen [[place] 5-325] 1 tab PO Q6HR PRN #20 tab PRN Reason: Pain Referrals: Scot Smith MD [Primary Care Provider] - 1-2 days Patrick Landeros DO [Doctor of Osteopathic Medicine] - 1-2 days
--- NOTE | 2016-11-25 21:56 | XR ---
EXAMINATION TYPE: XR hand complete RT DATE OF EXAM: 11/25/2016 COMPARISON: NONE HISTORY: Pain and injury TECHNIQUE: 3 views FINDINGS: I see no fracture nor dislocation. Joint spaces are normal. Metacarpals are intact. IMPRESSION: Negative right hand exam.
[2016-11-25] MEDS ORDERED: HYDROcodone/APAP 5-325MG 1 EACH TAB PO STA (22:13)
[2016-11-25 22:22] VITALS: RESP 16
== END 2016-11-25 22:20 | disposition home or self-care (01) ==
LOC: EC 21:08
DX: S69.91XA Unspecified injury of right wrist, hand and finger(s), initial encounter (principal); Z88.0 Allergy status to penicillin; Z88.2 Allergy status to sulfonamides; Z88.1 Allergy status to other antibiotic agents; Z88.5 Allergy status to narcotic agent; Z88.6 Allergy status to analgesic agent; Z88.8 Allergy status to other drugs, medicaments and biological substances; W19.XXXA Unspecified fall, initial encounter
CPT/HCPCS: 29125; 99283

== ENCOUNTER 2017-01-21 17:50 | Emergency (ER) | payer BC ==
--- NOTE | 2017-01-21 19:45 | XR ---
EXAMINATION TYPE: XR wrist complete RT DATE OF EXAM: 01/21/2017 COMPARISON: NONE HISTORY: Pain after slamming in car door TECHNIQUE: 4 views FINDINGS: I see no fracture nor dislocation. Carpal bones are intact. Joint spaces are normal. IMPRESSION: Normal right wrist
--- NOTE | 2017-01-21 19:50 | ED ---
General Adult HPI - General Chief complaint: Extremity Injury, Upper Stated complaint: Wrist Injury Time Seen by Provider: 01/21/17 19:07 Source: patient, RN notes reviewed Mode of arrival: ambulatory Limitations: no limitations - History of Present Illness Initial comments: 26 yo female presents to the ER with cc of right wrist pain. Patient states that she accidentally shut it in her car door. Patient states that she was wearing her splint to the area but she was given by the doctor because she recently injury to right wrist. Patient patient she noticed some swelling and throbbing immediately following the accident so she thought that she should be evaluated. Patient denies any nausea vomiting this. Patient denies any fever chills. Patient states pain is moderate. She has noticed some swelling. Patient denies any recent fever, chills, shortness of breath, chest pain, back pain, abdominal pain, nausea vomiting, numbness or tingling, dysuria or hematuria, constipation or diarrhea, headaches or visual changes, or any other current symptoms. - Related Data Home Medications Medication Instructions Recorded Confirmed Ibuprofen [Motrin] 600 mg PO Q6HR PRN 01/21/17 01/21/17 Allergies Allergy/AdvReac Type Severity Reaction Status Date / Time azithromycin Allergy Rash/Hives/ Verified 01/21/17 19:07 Dyspnea Cephalosporins Allergy Rash/Hives Verified 01/21/17 19:07 codeine phosphate Allergy Rash/Hives Verified 01/21/17 19:07 [From Tylenol-Codeine #3] metoclopramide HCl Allergy Rash/Hives Verified 01/21/17 19:07 [From Reglan] morphine Allergy Rash/Hives Verified 01/21/17 19:07 Penicillins Allergy Rash/Hives Verified 01/21/17 19:07 Sulfa (Sulfonamide Allergy Rash/Hives Verified 01/21/17 19:07 Antibiotics) Review of Systems ROS Statement: Those systems with pertinent positive or pertinent negative responses have been documented in the HPI. ROS Other: All systems not noted in ROS Statement are negative. Past Medical History Past Medical History: No Reported History Additional Past Medical History / Comment(s): Patient has had kidney stones and history of recurrent urinary tract infections. History of narcotic abuse History of Any Multi-Drug Resistant Organisms: None Reported Past Surgical History: Section Additional Past Surgical History / Comment(s): lithotripsy, bilateral kidney stent Past Anesthesia/Blood Transfusion Reactions: No Reported Reaction Past Psychological History: No Psychological Hx Reported Smoking Status: Never smoker Past Alcohol Use History: None Reported Past Drug Use History: None Reported - Past Family History Father Family Medical History: Cancer General Exam - General Exam Comments Initial Comments: General: The patient is awake and alert, in no distress, and does not appear acutely ill. Neck: The neck is supple, there is no tenderness or JVD. Cardiovascular: There is a regular rate and rhythm. No murmur, rub or gallop is appreciated. Respiratory: Lungs are clear to auscultation, respirations are non-labored, breath sounds are equal. No wheezes, stridor, rales, or rhonchi. Musculoskeletal: Sensation intact with 2+ pulses. Right upper extremity. Full range of motion of the right wrist and hand. Some associated with mild diffuse tenderness. Full range motion of the right elbow. Neurological: CN II-XII intact, There are no obvious motor or sensory deficits. Coordination appears grossly intact. Speech is normal. Skin: Skin is warm and dry and no rashes or lesions are noted. Psychiatric: Normal mood and affect. Limitations: no limitations Course Vital Signs 01/21/17 18:08 Temperature 97.8 F Pulse Rate 100 Respiratory 20 Rate Blood Pressure 142/72 O2 Sat by Pulse 100 Oximetry Medical Decision Making - Medical Decision Making 26-year-old female presents for right wrist pain after trauma to the right wrist. At this time patient underwent an x-ray of the wrist. In any acute process. We discussed continuing to wear her splint follow-up with orthopedic. We discussed return parameters and all the patient's questions. She states that she understood and she is in agreement plan. All questions have been answered. This time patient will be discharged home. - Radiology Data Radiology results: report reviewed, image reviewed Disposition Clinical Impression: Contusion of right wrist, initial encounter Disposition: HOME SELF-CARE Condition: Stable Instructions: Wrist Injury (ED) Additional Instructions: Please use medication as discussed. Please follow up with family doctor if symptoms have not improved over the next two days. Please return to the emergency room if your symptoms increase or worsen or for any other concerns. Referrals: Scot Smith MD [Primary Care Provider] - 1-2 days Time of Disposition: 19:50
[2017-01-21 20:04] VITALS: BP 140/80; PULSE 80; RESP 16; TEMP 98
== END 2017-01-21 20:02 | disposition home or self-care (01) ==
LOC: EC 17:50
DX: S60.211A Contusion of right wrist, initial encounter (principal); Z88.0 Allergy status to penicillin; Z88.2 Allergy status to sulfonamides; Z88.5 Allergy status to narcotic agent; Z88.1 Allergy status to other antibiotic agents; Z88.8 Allergy status to other drugs, medicaments and biological substances; W23.0XXA Caught, crushed, jammed, or pinched between moving objects, initial encounter
CPT/HCPCS: 99283

== ENCOUNTER 2017-04-07 20:28 | Emergency (ER) | payer BC ==
[2017-04-07 20:35] VITALS: BP 115/69; PULSE 90; RESP 20; TEMP 98.4
[2017-04-07] MEDS ORDERED: ONDANSETRON 4 MG/2 ML VIAL IVP STA (22:21)
[2017-04-07] MEDS ORDERED: HYDROmorphone 1 MG/ML 1 ML SYRINGE IVP STA (22:21)
[2017-04-07] MEDS ORDERED: SODIUM CHLORIDE 0.9% 1,000 ML IV STA (22:21)
--- NOTE | 2017-04-07 22:27 | ED ---
General Adult HPI - General Chief complaint: Vaginal Bleeding Stated complaint: Female Time Seen by Provider: 04/07/17 21:54 Source: patient, RN notes reviewed Mode of arrival: ambulatory Limitations: no limitations - History of Present Illness Initial comments: 26 yo female presents to the ER with cc of of abdominal cramping and vaginal bleeding. She's been diagnosed with what they suspect be endometriosis that she has a follow-up appointment with [employer] to have surgery. She states she chronically has abdominal pain she chronically is cramping and irregular bleeding. She states that she receives infusions due to the anemia but this causes. She states she is here today because her at home medications are not helping her with her symptoms. She states is exactly like her normal pain. There's been no fever or chills with this. She states she just needs something to help with her discomfort. He states that there were no acute ultrasound and such. Her abdominal pain and vaginal bleeding and she is just here to get her pain under control. Patient denies any recent fever, chills, shortness of breath, chest pain, back pain, nausea vomiting, numbness or tingling, dysuria or hematuria, constipation or diarrhea, headaches or visual changes, or any other current symptoms. - Related Data Home Medications Medication Instructions Recorded Confirmed Cholecalciferol [Vitamin D3] 5,000 unit PO HS 04/07/17 04/07/17 Ergocalciferol [Vitamin D2] 50,000 unit PO VELARDE 04/07/17 04/07/17 Famotidine [Pepcid] 40 mg PO HS 04/07/17 04/07/17 Ketorolac [Toradol] 10 mg PO Q6HR PRN 04/07/17 04/07/17 Nortrel 1/35 1 tab PO DAILY 04/07/17 04/07/17 [id number] Acid 1 cap PO HS 04/07/17 04/07/17 [-U Capsule (formulary)] traMADol HCL [Ultram] 50 mg PO DAILY PRN 04/07/17 04/07/17 Allergies Allergy/AdvReac Type Severity Reaction Status Date / Time azithromycin Allergy Rash/Hives/ Verified 04/07/17 22:02 Dyspnea Cephalosporins Allergy Rash/Hives Verified 04/07/17 22:02 codeine phosphate Allergy Rash/Hives Verified 04/07/17 22:02 [From Tylenol-Codeine #3] metoclopramide HCl Allergy Rash/Hives Verified 04/07/17 22:02 [From Reglan] morphine Allergy Rash/Hives Verified 04/07/17 22:02 Penicillins Allergy Rash/Hives Verified 04/07/17 22:02 Sulfa (Sulfonamide Allergy Rash/Hives Verified 04/07/17 22:02 Antibiotics) Review of Systems ROS Statement: Those systems with pertinent positive or pertinent negative responses have been documented in the HPI. ROS Other: All systems not noted in ROS Statement are negative. Past Medical History Past Medical History: No Reported History Additional Past Medical History / Comment(s): Patient has had kidney stones and history of recurrent urinary tract infections. History of narcotic abuse History of Any Multi-Drug Resistant Organisms: None Reported Past Surgical History: Section Additional Past Surgical History / Comment(s): lithotripsy, bilateral kidney stent Past Anesthesia/Blood Transfusion Reactions: No Reported Reaction Past Psychological History: No Psychological Hx Reported Smoking Status: Never smoker Past Alcohol Use History: None Reported Past Drug Use History: None Reported - Past Family History Father Family Medical History: Cancer General Exam - General Exam Comments Initial Comments: General: The patient is awake and alert, in no distress, and does not appear acutely ill. Eye: Pupils are equal, round and reactive to light, extra-ocular movements are intact; there is normal conjunctiva bilaterally. No signs of icterus. Ears, nose, mouth and throat: There are moist mucous membranes. Neck: The neck is supple, there is no tenderness. Cardiovascular: There is a regular rate and rhythm. No murmur, rub or gallop is appreciated. Respiratory: Lungs are clear to auscultation, respirations are non-labored, breath sounds are equal. No wheezes, stridor, rales, or rhonchi. Gastrointestinal: Soft, non-distended, non-tender abdomen without masses or organomegaly noted. There is no rebound or guarding present. No CVA tenderness. Bowel sounds are unremarkable. Back: There is no tenderness to palpation in the midline. There is no obvious deformity. No rashes noted. Musculoskeletal: Normal ROM, no tenderness, There is no pedal edema. There is no calf tenderness or swelling. Sensation intact. Pulses equal bilaterally 2+. Neurological: CN II-XII intact, There are no obvious motor or sensory deficits. Coordination appears grossly intact. Speech is normal. Skin: Skin is warm and dry and no rashes or lesions are noted. Psychiatric: Cooperative, appropriate mood & affect, normal judgment. Limitations: no limitations Course Vital Signs 04/07/17 20:30 Temperature 98.4 F Pulse Rate 90 Respiratory 20 Rate Blood Pressure 115/69 O2 Sat by Pulse 100 Oximetry Medical Decision Making - Medical Decision Making 26-year-old female presents emergency Department chief complaint of abdominal pain and vaginal bleeding. At this time the patient has been reevaluated and is feeling better. At this time we did discuss results hemoglobin is stable. She has had this, pelvic abdominal pain for the last few months. She is currently weaning her [employer] referral. This and we discussed seems to continue to follow-up with [employer]. We did discuss return parameters all questions. She is comfortable with this plan. This time she'll be discharged. - Lab Data Result diagrams: 04/07/17 22:10 04/07/17 22:10 Lab Results 04/07/17 04/07/17 04/07/17 Range/Units 22:10 22:10 22:10 WBC 7.0 (3.8-10.6) k/uL RBC 4.73 (3.80-5.40) m/uL Hgb 12.7 (11.4-16.0) gm/dL Hct 40.9 (34.0-46.0) % MCV 86.4 (80.0-100.0) fL MCH 26.9 (25.0-35.0) pg MCHC 31.1 (31.0-37.0) g/dL RDW 17.1 H (11.5-15.5) % Plt Count 400 (150-450) k/uL Neutrophils % 60 % Lymphocytes % 33 % Monocytes % 4 % Eosinophils % 2 % Basophils % 1 % Neutrophils # 4.2 (1.3-7.7) k/uL Lymphocytes # 2.3 (1.0-4.8) k/uL Monocytes # 0.3 (0-1.0) k/uL Eosinophils # 0.1 (0-0.7) k/uL Basophils # 0.1 (0-0.2) k/uL Anisocytosis Slight Sodium 141 (137-145) mmol/L Potassium 4.4 (3.5-5.1) mmol/L Chloride 109 H (98-107) mmol/L Carbon Dioxide 23 (22-30) mmol/L Anion Gap 9 mmol/L BUN 13 (7-17) mg/dL Creatinine 0.82 (0.52-1.04) mg/dL Est GFR (MDRD) Af Amer >60 (>60 ml/min/1.73 sqM) Est GFR (MDRD) Non-Af >60 (>60 ml/min/1.73 sqM) Glucose 78 (74-99) mg/dL Calcium 9.1 (8.4-10.2) mg/dL Total Bilirubin 0.2 (0.2-1.3) mg/dL AST 29 (14-36) U/L ALT 39 (9-52) U/L Alkaline Phosphatase 61 (38-126) U/L Total Protein 8.3 H (6.3-8.2) g/dL Albumin 4.6 (3.5-5.0) g/dL Urine Color Urine Appearance (Clear) Urine pH (5.0-8.0) Ur Specific [place] (1.001-1.035) Urine Protein (Negative) Urine Glucose (UA) (Negative) Urine Ketones (Negative) Urine Blood (Negative) Urine Nitrite (Negative) Urine Bilirubin (Negative) Urine Urobilinogen (<2.0) mg/dL Ur Leukocyte Esterase (Negative) Urine RBC (0-5) /hpf Urine WBC (0-5) /hpf Ur Squamous Epith Cells (0-4) /hpf Urine Mucus (None) /hpf Urine HCG, Qual Not Detected (Not Detectd) 04/07/17 Range/Units 22:10 WBC (3.8-10.6) k/uL RBC (3.80-5.40) m/uL Hgb (11.4-16.0) gm/dL Hct (34.0-46.0) % MCV (80.0-100.0) fL MCH (25.0-35.0) pg MCHC (31.0-37.0) g/dL RDW (11.5-15.5) % Plt Count (150-450) k/uL Neutrophils % % Lymphocytes % % Monocytes % % Eosinophils % % Basophils % % Neutrophils # (1.3-7.7) k/uL Lymphocytes # (1.0-4.8) k/uL Monocytes # (0-1.0) k/uL Eosinophils # (0-0.7) k/uL Basophils # (0-0.2) k/uL Anisocytosis Sodium (137-145) mmol/L Potassium (3.5-5.1) mmol/L Chloride (98-107) mmol/L Carbon Dioxide (22-30) mmol/L Anion Gap mmol/L BUN (7-17) mg/dL Creatinine (0.52-1.04) mg/dL Est GFR (MDRD) Af Amer (>60 ml/min/1.73 sqM) Est GFR (MDRD) Non-Af (>60 ml/min/1.73 sqM) Glucose (74-99) mg/dL Calcium (8.4-10.2) mg/dL Total Bilirubin (0.2-1.3) mg/dL AST (14-36) U/L ALT (9-52) U/L Alkaline Phosphatase (38-126) U/L Total Protein (6.3-8.2) g/dL Albumin (3.5-5.0) g/dL Urine Color Yellow Urine Appearance Clear (Clear) Urine pH 6.0 (5.0-8.0) Ur Specific [place] 1.019 (1.001-1.035) Urine Protein Negative (Negative) Urine Glucose (UA) Negative (Negative) Urine Ketones Negative (Negative) Urine Blood Negative (Negative) Urine Nitrite Negative (Negative) Urine Bilirubin Negative (Negative) Urine Urobilinogen <2.0 (<2.0) mg/dL Ur Leukocyte Esterase Trace H (Negative) Urine RBC 2 (0-5) /hpf Urine WBC 7 H (0-5) /hpf Ur Squamous Epith Cells 3 (0-4) /hpf Urine Mucus Rare H (None) /hpf Urine HCG, Qual (Not Detectd) Disposition Clinical Impression: Chronic pelvic pain in female Disposition: HOME SELF-CARE Condition: Stable Instructions: Endometritis (ED) Additional Instructions: Please use medication as discussed. Please follow up with family doctor if symptoms have not improved over the next two days. Please return to the emergency room if your symptoms increase or worsen or for any other concerns. Referrals: Scot Smith MD [Primary Care Provider] - 1-2 days Time of Disposition: 23:07
[2017-04-07] MEDS ORDERED: HYDROmorphone 2 MG/ML 1 ML SYRINGE IVP STA (22:35)
[2017-04-07 22:41] LABS: Anisocytosis Slight; Basophils # (A) 0.1 k/uL (0-0.2); Basophils % (A) 1 %; CHCM 32.5; Eosinophils # (A) 0.1 k/uL (0-0.7); Eosinophils % (A) 2 %; HCT 40.9 % (34.0-46.0); HDW 2.54; HGB 12.7 gm/dL (11.4-16.0); Luc # (Auto) 0.08; Luc % (Auto) 1; Lymphocytes # (A) 2.3 k/uL (1.0-4.8); Lymphocytes % (A) 33 %; MCH 26.9 pg (25.0-35.0); MCHC 31.1 g/dL (31.0-37.0); MCV 86.4 fL (80.0-100.0); Monocytes # (A) 0.3 k/uL (0-1.0); Monocytes % (A) 4 %; Neutrophils # (A) 4.2 k/uL (1.3-7.7); Neutrophils % (A) 60 %; RBC 4.73 m/uL (3.80-5.40); RDW 17.1 % (11.5-15.5); WBC (Perox) 6.95
[2017-04-07] MEDS ORDERED: diphenhydrAMINE 50 MG/ML 1 ML VIAL IVP STA (22:43)
[2017-04-07 22:46] LABS: Appearance,Urine Clear (Clear); Bilirubin,Urine Negative (Negative); Glucose,Urine (UA) Negative (Negative); Ketones,Urine Negative (Negative); Leukocyte Esterase,Urine Trace (Negative); Mucus,Urine Rare /hpf; Nitrite,Urine Negative (Negative); Particle Count 2583; Protein,Urine Negative (Negative); RBC,Urine 2 /hpf (0-5); Specific Gravity,Urine 1.019 (1.001-1.035); Squamous Epithelial Cell,Urine 3 /hpf (0-4); UA Billing (MACRO vs. MICRO) MICRO; Urobilinogen,Urine <2.0 mg/dL (<2.0); WBC,Urine 7 /hpf (0-5)
[2017-04-07 22:50] LABS: ALT 39 U/L (9-52); AST 29 U/L (14-36); Alkaline Phosphatase 61 U/L (38-126); Anion Gap 9 mmol/L; Blood Urea Nitrogen 13 mg/dL (7-17); Calcium 9.1 mg/dL (8.4-10.2); Carbon Dioxide 23 mmol/L (22-30); Chloride 109 mmol/L (98-107); Glucose 78 mg/dL (74-99); Non-African American GFR(MDRD) >60 (>60 ml/min/1.73 sqM); Potassium 4.4 mmol/L (3.5-5.1); Sodium 141 mmol/L (137-145); Total Bilirubin 0.2 mg/dL (0.2-1.3); Total Protein 8.3 g/dL (6.3-8.2)
== END 2017-04-07 23:37 | disposition home or self-care (01) ==
LOC: EC 20:28
DX: R10.2 Pelvic and perineal pain (principal); G89.29 Other chronic pain; N93.9 Abnormal uterine and vaginal bleeding, unspecified; Z79.899 Other long term (current) drug therapy; Z88.1 Allergy status to other antibiotic agents; Z88.5 Allergy status to narcotic agent; Z88.0 Allergy status to penicillin; Z88.2 Allergy status to sulfonamides
CPT/HCPCS: 36415; 86900; 86901; 80053; 85025; 86850; 81001; 81025; 99284; 96374; 96375 ×2; 96361; J1170; J1200; J2405

== ENCOUNTER 2017-04-10 14:35 | Emergency (ER) | payer BC ==
[2017-04-10 14:47] VITALS: RESP 18
[2017-04-10] MEDS ORDERED: SODIUM CHLORIDE 0.9% 1,000 ML IV ONE (15:21)
[2017-04-10] MEDS ORDERED: diphenhydrAMINE 50 MG/ML 1 ML VIAL IVP STA (15:21)
[2017-04-10] MEDS ORDERED: HYDROmorphone 1 MG/ML 1 ML SYRINGE IVP STA (15:21)
--- NOTE | 2017-04-10 16:04 | ED ---
Abdominal Pain HPI - General Chief Complaint: Abdominal Pain Stated Complaint: Abd Pain Time Seen by Provider: 04/10/17 15:00 Source: patient Mode of arrival: wheelchair Limitations: no limitations - History of Present Illness Initial Comments: 26-year-old female with past medical history of kidney stones, recurrent urinary tract infections, narcotic abuse, and endometriosis presented for evaluation of acute onset vaginal bleeding hour ago with clots as well as pelvic pain for the last 2 days. She states that she was evaluated at this facility at the onset of her symptoms and received no imaging, was given pain control, and discharged with instructions to follow-up as an outpatient. She states that she is scheduled to follow-up with an [employer] for consult of central hysterectomy due to chronic anemia from endometriosis requiring iron transfusions the last one being this morning at 9:30. She further states past medical history of tubal oblations as well as control to control the bleeding however this is the worst that she has had it before. - Related Data Home Medications Medication Instructions Recorded Confirmed Cholecalciferol [Vitamin D3] 5,000 unit PO HS 04/07/17 04/10/17 Ergocalciferol [Vitamin D2] 50,000 unit PO VELARDE 04/07/17 04/10/17 Famotidine [Pepcid] 40 mg PO HS 04/07/17 04/10/17 Ketorolac [Toradol] 10 mg PO Q6HR PRN 04/07/17 04/10/17 Nortrel 1/35 1 tab PO DAILY 04/07/17 04/10/17 [id number]-[id number] Acid 1 cap PO HS 04/07/17 04/10/17 [-U Capsule (formulary)] traMADol HCL [Ultram] 50 mg PO DAILY PRN 04/07/17 04/10/17 Allergies Allergy/AdvReac Type Severity Reaction Status Date / Time azithromycin Allergy Rash/Hives/ Verified 04/10/17 15:07 Dyspnea Cephalosporins Allergy Rash/Hives Verified 04/10/17 15:07 codeine phosphate Allergy Rash/Hives Verified 04/10/17 15:07 [From Tylenol-Codeine #3] metoclopramide HCl Allergy Rash/Hives Verified 04/10/17 15:07 [From Reglan] morphine Allergy Rash/Hives Verified 04/10/17 15:07 Penicillins Allergy Rash/Hives Verified 04/10/17 15:07 Sulfa (Sulfonamide Allergy Rash/Hives Verified 04/10/17 15:07 Antibiotics) Review of Systems ROS Statement: Those systems with pertinent positive or pertinent negative responses have been documented in the HPI. ROS Other: All systems not noted in ROS Statement are negative. Constitutional: Denies: fever, chills, weakness, weight change Eyes: Denies: eye pain, eye discharge ENT: Denies: ear pain, throat pain Respiratory: Denies: cough, dyspnea Cardiovascular: Denies: chest pain, palpitations Endocrine: Denies: fatigue, polydipsia, polyuria Gastrointestinal: Reports: abdominal pain (Suprapubic with radiation into the back). Denies: nausea, vomiting, diarrhea, constipation, melena, hematochezia Genitourinary: Reports: other (Vaginal bleeding with clots worse with standing.) . Denies: urgency, dysuria, frequency, hematuria Musculoskeletal: Denies: back pain, arthralgia, myalgia Skin: Denies: rash, lesions Neurological: Denies: headache, weakness Psychiatric: Denies: anxiety, depression Hematological/Lymphatic: Denies: easy bleeding, easy bruising Past Medical History Past Medical History: No Reported History Additional Past Medical History / Comment(s): Patient has had kidney stones and history of recurrent urinary tract infections. History of narcotic abuse History of Any Multi-Drug Resistant Organisms: None Reported Past Surgical History: Section Additional Past Surgical History / Comment(s): lithotripsy, bilateral kidney stent Past Anesthesia/Blood Transfusion Reactions: No Reported Reaction Past Psychological History: No Psychological Hx Reported Smoking Status: Never smoker Past Alcohol Use History: None Reported Past Drug Use History: None Reported - Past Family History Father Family Medical History: Cancer General Exam Limitations: no limitations General appearance: alert, in distress (Tearful during interview) Head exam: Present: atraumatic, normocephalic, normal inspection Eye exam: Present: normal appearance, PERRL, EOMI. Absent: scleral icterus, conjunctival injection, periorbital swelling ENT exam: Present: normal exam, mucous membranes moist Neck exam: Present: normal inspection. Absent: tenderness, meningismus, lymphadenopathy Respiratory exam: Present: normal lung sounds bilaterally. Absent: respiratory distress, wheezes, rales, rhonchi, stridor Cardiovascular Exam: Present: regular rate, normal rhythm, normal heart sounds. Absent: systolic murmur, diastolic murmur, rubs, gallop, clicks GI/Abdominal exam: Present: soft, normal bowel sounds. Absent: distended, tenderness, guarding, rebound, rigid Rectal exam: Present: deferred Extremities exam: Present: normal inspection, full ROM, normal capillary refill. Absent: tenderness, pedal edema, joint swelling, calf tenderness Back exam: Present: normal inspection Neurological exam: Present: alert, oriented X3, CN II-XII intact Psychiatric exam: Present: normal affect, normal mood Skin exam: Present: warm, dry, intact, normal color. Absent: rash Course Vital Signs 04/10/17 04/10/17 04/10/17 14:44 15:46 16:23 Temperature 98.2 F 97.9 F Pulse Rate 81 88 Respiratory 18 18 18 Rate Blood Pressure 126/73 127/86 O2 Sat by Pulse 98 99 Oximetry 04/10/17 04/10/17 18:24 19:28 Temperature 98.3 F Pulse Rate 90 47 L Respiratory 18 18 Rate Blood Pressure 111/64 115/62 O2 Sat by Pulse 100 97 Oximetry Medical Decision Making - Medical Decision Making 26 yo female with pmh as noted above presenting for evaluation of vaginal bleeding and abdominal pain. On PE there is mild lower abdominal tenderness without peritoneal signs of guarding, rigidity, or rebound. Pt is tearful during interview but remainder of exam is benign. Pelvic US showed no acute abnormalities and labs revealed no significant abnormalities. Pt reevaluated and had improvement in symptoms and was no longer bleeding. She was informed of all results and through shared decision making it was determined that she would be discharged with instructions to follow up with her PCP who was called and updated on her presentation and work up. He stated he would see her this next week. The pt was informed of this conversation, acknowledged an understanding of this information and agreed with this plan of care. - Lab Data Result diagrams: 04/10/17 17:35 04/10/17 17:35 Lab Results 04/10/17 04/10/17 04/10/17 Range/Units 15:54 15:54 17:35 WBC 7.1 (3.8-10.6) k/uL RBC 4.29 (3.80-5.40) m/uL Hgb 11.9 (11.4-16.0) gm/dL Hct 36.3 (34.0-46.0) % MCV 84.6 (80.0-100.0) fL MCH 27.7 (25.0-35.0) pg MCHC 32.8 (31.0-37.0) g/dL RDW 15.3 (11.5-15.5) % Plt Count 360 (150-450) k/uL Neutrophils % 65 % Lymphocytes % 28 % Monocytes % 3 % Eosinophils % 2 % Basophils % 0 % Neutrophils # 4.6 (1.3-7.7) k/uL Lymphocytes # 2.0 (1.0-4.8) k/uL Monocytes # 0.2 (0-1.0) k/uL Eosinophils # 0.1 (0-0.7) k/uL Basophils # 0.0 (0-0.2) k/uL Sodium (137-145) mmol/L Potassium (3.5-5.1) mmol/L Chloride (98-107) mmol/L Carbon Dioxide (22-30) mmol/L Anion Gap mmol/L BUN (7-17) mg/dL Creatinine (0.52-1.04) mg/dL Est GFR (MDRD) Af Amer (>60 ml/min/1.73 sqM) Est GFR (MDRD) Non-Af (>60 ml/min/1.73 sqM) Glucose (74-99) mg/dL Calcium (8.4-10.2) mg/dL Urine Color Yellow Urine Appearance Clear (Clear) Urine pH 8.0 (5.0-8.0) Ur Specific [place] 1.015 (1.001-1.035) Urine Protein Trace H (Negative) Urine Glucose (UA) Negative (Negative) Urine Ketones Negative (Negative) Urine Blood Large H (Negative) Urine Nitrite Negative (Negative) Urine Bilirubin Negative (Negative) Urine Urobilinogen <2.0 (<2.0) mg/dL Ur Leukocyte Esterase Trace H (Negative) Urine RBC >182 H (0-5) /hpf Urine WBC 6 H (0-5) /hpf Ur Squamous Epith Cells 3 (0-4) /hpf Urine Sperm Rare (None) /hpf Urine HCG, Qual Not Detected (Not Detectd) 04/10/17 Range/Units 17:35 WBC (3.8-10.6) k/uL RBC (3.80-5.40) m/uL Hgb (11.4-16.0) gm/dL Hct (34.0-46.0) % MCV (80.0-100.0) fL MCH (25.0-35.0) pg MCHC (31.0-37.0) g/dL RDW (11.5-15.5) % Plt Count (150-450) k/uL Neutrophils % % Lymphocytes % % Monocytes % % Eosinophils % % Basophils % % Neutrophils # (1.3-7.7) k/uL Lymphocytes # (1.0-4.8) k/uL Monocytes # (0-1.0) k/uL Eosinophils # (0-0.7) k/uL Basophils # (0-0.2) k/uL Sodium 139 (137-145) mmol/L Potassium 4.4 (3.5-5.1) mmol/L Chloride 111 H (98-107) mmol/L Carbon Dioxide 21 L (22-30) mmol/L Anion Gap 7 mmol/L BUN 11 (7-17) mg/dL Creatinine 0.71 (0.52-1.04) mg/dL Est GFR (MDRD) Af Amer >60 (>60 ml/min/1.73 sqM) Est GFR (MDRD) Non-Af >60 (>60 ml/min/1.73 sqM) Glucose 79 (74-99) mg/dL Calcium 9.0 (8.4-10.2) mg/dL Urine Color Urine Appearance (Clear) Urine pH (5.0-8.0) Ur Specific [place] (1.001-1.035) Urine Protein (Negative) Urine Glucose (UA) (Negative) Urine Ketones (Negative) Urine Blood (Negative) Urine Nitrite (Negative) Urine Bilirubin (Negative) Urine Urobilinogen (<2.0) mg/dL Ur Leukocyte Esterase (Negative) Urine RBC (0-5) /hpf Urine WBC (0-5) /hpf Ur Squamous Epith Cells (0-4) /hpf Urine Sperm (None) /hpf Urine HCG, Qual (Not Detectd) Disposition Clinical Impression: Abdominal pain, Vaginal bleeding Disposition: HOME SELF-CARE Condition: Stable Instructions: Endometriosis (ED), Abdominal Pain (ED) Referrals: Scot Smith MD [Primary Care Provider] - 1-2 days Time of Disposition: 18:46
[2017-04-10 16:25] LABS: Appearance,Urine Clear (Clear); Bilirubin,Urine Negative (Negative); Glucose,Urine (UA) Negative (Negative); Ketones,Urine Negative (Negative); Leukocyte Esterase,Urine Trace (Negative); Nitrite,Urine Negative (Negative); Particle Count 2267; Protein,Urine Trace (Negative); RBC,Urine >182 /hpf (0-5); Specific Gravity,Urine 1.015 (1.001-1.035); Sperm,Urine Rare /hpf; Squamous Epithelial Cell,Urine 3 /hpf (0-4); UA Billing (MACRO vs. MICRO) MICRO; Urobilinogen,Urine <2.0 mg/dL (<2.0); WBC,Urine 6 /hpf (0-5)
--- NOTE | 2017-04-10 17:38 | US ---
EXAMINATION TYPE: US pelvic complete DATE OF EXAM: 04/10/2017 COMPARISON: NONE CLINICAL HISTORY: Pain. Bleeding TECHNIQUE: Transabdominal (TA) Date of LMP: 03/31/2017 EXAM MEASUREMENTS: Uterus: 9.2 x 4.5 x 4.8 cm Endometrial Stripe: 0.6 cm Right Ovary: 2.0 x 1.5 x 1.4 cm Left Ovary: 2.3 x 2.1 x 2.6 cm 1. Uterus: Anteverted appears wnl 2. Endometrium: appears wnl 3. Right Ovary: wnl 4. Left Ovary: wnl Spectral, color and waveform doppler imaging shows good arterial and venous flow within the ovaries ; there is no evidence for ovarian torsion. 5. Bilateral Adnexa: wnl 6. Posterior cul-de-sac: wnl IMPRESSION: Normal transabdominal pelvic sonogram. No evidence of torsion.
[2017-04-10 17:44] LABS: Basophils % (A) 0 %; CH 28.1; CHCM 33.3; Eosinophils # (A) 0.1 k/uL (0-0.7); Eosinophils % (A) 2 %; HCT 36.3 % (34.0-46.0); HDW 2.83; HGB 11.9 gm/dL (11.4-16.0); Luc # (Auto) 0.11; Luc % (Auto) 2; Lymphocytes % (A) 28 %; MCH 27.7 pg (25.0-35.0); MCHC 32.8 g/dL (31.0-37.0); MCV 84.6 fL (80.0-100.0); Mean Platelet Volume 6.6; Monocytes # (A) 0.2 k/uL (0-1.0); Monocytes % (A) 3 %; Neutrophils # (A) 4.6 k/uL (1.3-7.7); Neutrophils % (A) 65 %; RBC 4.29 m/uL (3.80-5.40); RDW 15.3 % (11.5-15.5); WBC 7.1 k/uL (3.8-10.6); WBC (Perox) 6.82
[2017-04-10 17:57] LABS: Anion Gap 7 mmol/L; Blood Urea Nitrogen 11 mg/dL (7-17); Carbon Dioxide 21 mmol/L (22-30); Chloride 111 mmol/L (98-107); Glucose 79 mg/dL (74-99); Non-African American GFR(MDRD) >60 (>60 ml/min/1.73 sqM); Potassium 4.4 mmol/L (3.5-5.1); Sodium 139 mmol/L (137-145)
[2017-04-10] MEDS ORDERED: KETOROLAC 30 MG/ML 1 ML VIAL IVP STA (18:46)
[2017-04-10 19:29] VITALS: BP 115/62; PULSE 47; TEMP 98.3
== END 2017-04-10 19:29 | disposition home or self-care (01) ==
LOC: EC 14:35
DX: N93.9 Abnormal uterine and vaginal bleeding, unspecified (principal); R10.2 Pelvic and perineal pain; Z79.3 Long term (current) use of hormonal contraceptives; Z79.899 Other long term (current) drug therapy; Z88.0 Allergy status to penicillin; Z88.1 Allergy status to other antibiotic agents; Z88.2 Allergy status to sulfonamides; Z88.5 Allergy status to narcotic agent; Z88.8 Allergy status to other drugs, medicaments and biological substances
CPT/HCPCS: 36415; 80048; 85025; 81001; 81025; 93975; 76856; 99284; 96374; 96375 ×2; 96361 ×2; J1200; J1885; J1170

== ENCOUNTER 2017-05-24 17:57 | Emergency (ER) | payer BC ==
[2017-05-24] MEDS ORDERED: SODIUM CHLORIDE 0.9% 1,000 ML IV STA (19:15)
[2017-05-24] MEDS ORDERED: HYDROmorphone 0.5 MG/0.5 ML SYRINGE IVP STA (19:15)
[2017-05-24] MEDS ORDERED: ONDANSETRON 4 MG/2 ML VIAL IVP STA (19:15)
--- NOTE | 2017-05-24 19:32 | ED ---
Abdominal Pain HPI - General Chief Complaint: Abdominal Pain Stated Complaint: abdominal pain Time Seen by Provider: 05/24/17 19:01 Source: patient, RN notes reviewed Mode of arrival: wheelchair Limitations: no limitations - History of Present Illness Initial Comments: This is a 27-year-old female who presents to the emergency department with chief complaint of abdominal pain. Patient states that she has a history of adenomyosis for which she is supposed to be undergoing a hysterectomy on June 17, 2017. Patient states that today her usual low abdominal pain has increased in intensity. She currently rates her pain as 10/10. She states that she normally takes 1-3 [place]/day as well as Zofran for her symptoms. She states that she takes 2 pills of control daily and has frequent spotting. She states that recently she has been having brownish discharge. She reports nausea but denies vomiting. She denies fevers or chills. She denies constipation but reports some diarrhea. She states that she has an extensive history of kidney stones and lithotripsy and states that this does not feel like a kidney stone. It feels like her usual pain but worse. She also complains of an acute throbbing headache that she describes as "pressure." Denies shortness of breath or chest pain. - Related Data Home Medications Medication Instructions Recorded Confirmed Cholecalciferol [Vitamin D3] 5,000 unit PO HS 04/07/17 05/24/17 Ergocalciferol [Vitamin D2] 50,000 unit PO VELARDE 04/07/17 05/24/17 Famotidine [Pepcid] 40 mg PO HS 04/07/17 05/24/17 Nortrel 1/35 1 tab PO DAILY 04/07/17 05/24/17 Tpc-Tltk-Ylcjl Acid 1 cap PO HS 04/07/17 05/24/17 [-U Capsule (formulary)] HYDROcodone/APAP 5-325MG [[place] 1 tab PO Q4HR PRN 05/24/17 05/24/17 5-325] Ibuprofen [Motrin] 600 mg PO Q6HR PRN 05/24/17 05/24/17 Omeprazole [PriLOSEC] 40 mg PO HS 05/24/17 05/24/17 Allergies Allergy/AdvReac Type Severity Reaction Status Date / Time azithromycin Allergy Rash/Hives/ Verified 05/24/17 19:27 Dyspnea Cephalosporins Allergy Rash/Hives Verified 05/24/17 19:27 codeine phosphate Allergy Rash/Hives Verified 05/24/17 19:27 [From Tylenol-Codeine #3] doxycycline Allergy Rash/Hives Verified 05/24/17 19:30 ketorolac [From Toradol] Allergy Rash/Hives Verified 05/24/17 19:30 metoclopramide HCl Allergy Rash/Hives Verified 05/24/17 19:27 [From Reglan] morphine Allergy Rash/Hives Verified 05/24/17 19:27 Penicillins Allergy Rash/Hives Verified 05/24/17 19:27 Sulfa (Sulfonamide Allergy Rash/Hives Verified 05/24/17 19:27 Antibiotics) tramadol Allergy Rash/Hives Verified 05/24/17 19:30 Review of Systems ROS Statement: Those systems with pertinent positive or pertinent negative responses have been documented in the HPI. ROS Other: All systems not noted in ROS Statement are negative. Past Medical History Past Medical History: No Reported History Additional Past Medical History / Comment(s): Patient has had kidney stones and history of recurrent urinary tract infections. History of narcotic abuse, endometriosis History of Any Multi-Drug Resistant Organisms: None Reported Past Surgical History: Section Additional Past Surgical History / Comment(s): lithotripsy, bilateral kidney stent Past Anesthesia/Blood Transfusion Reactions: No Reported Reaction Past Psychological History: No Psychological Hx Reported Smoking Status: Never smoker Past Alcohol Use History: None Reported Past Drug Use History: None Reported - Past Family History Father Family Medical History: Cancer General Exam Limitations: no limitations General appearance: alert, in no apparent distress Head exam: Present: atraumatic, normocephalic Eye exam: Present: normal appearance, PERRL, EOMI ENT exam: Present: normal exam, normal oropharynx, mucous membranes moist Neck exam: Present: normal inspection, full ROM. Absent: tenderness Respiratory exam: Present: normal lung sounds bilaterally. Absent: respiratory distress, wheezes, rales, rhonchi, stridor, accessory muscle use Cardiovascular Exam: Present: normal rhythm, tachycardia, normal heart sounds. Absent: systolic murmur, diastolic murmur, rubs, gallop GI/Abdominal exam: Present: soft, tenderness (generalized lower abdomen), normal bowel sounds. Absent: guarding, rebound, rigid Extremities exam: Present: normal inspection, full ROM. Absent: tenderness Neurological exam: Present: alert, altered, oriented X3, CN II-XII intact Psychiatric exam: Present: normal affect, normal mood Skin exam: Present: warm, dry, intact, normal color Course Vital Signs 05/24/17 17:59 Temperature 98.1 F Pulse Rate 108 H Respiratory 20 Rate Blood Pressure 135/90 O2 Sat by Pulse 99 Oximetry Medical Decision Making - Medical Decision Making This is a 27-year-old female who presented to the emergency department for evaluation of lower abdominal pain. Patient has a history of adenomyosis for which she is undergoing a hysterectomy on June 17. Patient admits that the pain is the same as it normally is, however it is intensified. Patient denies any new symptoms. CBC and CMP were within normal limits. Urine was sent for a culture and we are pending results. Patient will be discharged home. She is in no acute distress and is feeling better. She is to follow-up with her primary care provider on Friday as scheduled. She is in agreement with plan and voices understanding. All questions were answered. Disposition Clinical Impression: Abdominal pain Disposition: HOME SELF-CARE Condition: Good Instructions: Abdominal Pain (ED) Additional Instructions: Please follow up with primary care provider within 1-2 days. Return to emergency department if symptoms should worsen or any concerns arise. Referrals: Scot Smith MD [Primary Care Provider] - 1-2 days Time of Disposition: 20:46
[2017-05-24] MEDS ORDERED: diphenhydrAMINE 50 MG/ML 1 ML VIAL IVP STA (19:50)
[2017-05-24 19:54] LABS: Amorphous Sediment,Urine Rare /hpf; Appearance,Urine Cloudy (Clear); Bacteria,Urine Rare /hpf; Bilirubin,Urine Negative (Negative); Blood,Urine Small (Negative); Color,Urine Yellow; Glucose,Urine (UA) Negative (Negative); Hyaline Casts,Urine 3 /lpf (0-2); Ketones,Urine Negative (Negative); Leukocyte Esterase,Urine Moderate (Negative); Mucus,Urine Many /hpf; Nitrite,Urine Negative (Negative); Protein,Urine 1+ (Negative); RBC,Urine 5 /hpf (0-5); Specific Gravity,Urine 1.024 (1.001-1.035); Squamous Epithelial Cell,Urine 9 /hpf (0-4); Urobilinogen,Urine <2.0 mg/dL (<2.0); WBC,Urine 24 /hpf (0-5)
[2017-05-24 19:58] LABS: Anisocytosis Slight; Basophils % (A) 0 %; Eosinophils # (A) 0.1 k/uL (0-0.7); Eosinophils % (A) 1 %; HGB 14.5 gm/dL (11.4-16.0); Lymphocytes # (A) 0.6 k/uL (1.0-4.8); Lymphocytes % (A) 6 %; MCH 28.7 pg (25.0-35.0); MCHC 32.3 g/dL (31.0-37.0); MCV 88.8 fL (80.0-100.0); Mean Platelet Volume 6.9; Monocytes # (A) 0.1 k/uL (0-1.0); Monocytes % (A) 1 %; Neutrophils # (A) 9.1 k/uL (1.3-7.7); Neutrophils % (A) 91 %; Platelet Count 279 k/uL (150-450); RBC 5.07 m/uL (3.80-5.40); RDW 16.2 % (11.5-15.5)
[2017-05-24 20:09] LABS: ALT 67 U/L (9-52); AST 29 U/L (14-36); Albumin 4.3 g/dL (3.5-5.0); Alkaline Phosphatase 78 U/L (38-126); Amylase 55 U/L (30-110); Anion Gap 11 mmol/L; Blood Urea Nitrogen 12 mg/dL (7-17); Calcium 9.6 mg/dL (8.4-10.2); Carbon Dioxide 22 mmol/L (22-30); Chloride 110 mmol/L (98-107); Glucose 91 mg/dL (74-99); Lipase 72 U/L (23-300); Potassium 3.9 mmol/L (3.5-5.1); Sodium 143 mmol/L (137-145); Total Bilirubin 0.6 mg/dL (0.2-1.3); Total Protein 7.9 g/dL (6.3-8.2)
[2017-05-24 20:54] VITALS: BP 118/72; PULSE 93; RESP 16; TEMP 99
== END 2017-05-24 21:04 | disposition home or self-care (01) ==
LOC: EC 17:57
DX: R10.30 Lower abdominal pain, unspecified (principal); R00.0 Tachycardia, unspecified; R11.0 Nausea; R19.7 Diarrhea, unspecified; R51 Headache; N89.8 Other specified noninflammatory disorders of vagina; Z79.3 Long term (current) use of hormonal contraceptives; Z79.899 Other long term (current) drug therapy; Z88.0 Allergy status to penicillin; Z88.1 Allergy status to other antibiotic agents; Z88.2 Allergy status to sulfonamides; Z88.5 Allergy status to narcotic agent; Z88.6 Allergy status to analgesic agent; Z88.8 Allergy status to other drugs, medicaments and biological substances; Z87.42 Personal history of other diseases of the female genital tract
CPT/HCPCS: 36415; 80053; 82150; 83690; 85025; 81001; 81025; 99284; 96374; 96375 ×2; 96361; J1200; J2405; J1170

== ENCOUNTER → 2017-06-07 | Outpatient (CLI) | payer BC ==
[2017-06-07 10:03] LABS: Basophils # (A) 0.1 k/uL (0-0.2); Basophils % (A) 1 %; Eosinophils # (A) 0.2 k/uL (0-0.7); Eosinophils % (A) 2 %; HCT 39.9 % (34.0-46.0); HGB 13.4 gm/dL (11.4-16.0); Lymphocytes # (A) 2.6 k/uL (1.0-4.8); Lymphocytes % (A) 33 %; MCH 29.6 pg (25.0-35.0); MCHC 33.7 g/dL (31.0-37.0); MCV 87.9 fL (80.0-100.0); Mean Platelet Volume 6.7; Monocytes # (A) 0.4 k/uL (0-1.0); Monocytes % (A) 5 %; Neutrophils # (A) 4.5 k/uL (1.3-7.7); Neutrophils % (A) 57 %; Platelet Count 323 k/uL (150-450); RBC 4.53 m/uL (3.80-5.40); RDW 15.4 % (11.5-15.5); WBC 7.9 k/uL (3.8-10.6)
[2017-06-07 10:25] LABS: Anion Gap 11 mmol/L; Blood Urea Nitrogen 11 mg/dL (7-17); Carbon Dioxide 27 mmol/L (22-30); Chloride 103 mmol/L (98-107); Glucose 66 mg/dL (74-99); Sodium 141 mmol/L (137-145)
== END | disposition home or self-care (01) ==
LOC: LABPAT 09:07
PROVIDERS: ATTEND Obstetrics & Gynecology
DX: Z01.818 Encounter for other preprocedural examination (principal); N92.0 Excessive and frequent menstruation with regular cycle; R10.2 Pelvic and perineal pain
CPT/HCPCS: 36415; 80051; 82565; 82947; 84520; 85025; 87086

== ENCOUNTER 2017-06-17 08:37 | Observation (INO) | payer BC ==
[2017-06-10 09:29] VITALS: BMI 25.4
--- NOTE | 2017-06-16 11:59 | HP ---
HISTORY AND PHYSICAL HISTORY OF PRESENT ILLNESS: The patient is a 27-year-old, 4, para 2-1-1-4, who presented on a referral from Dr. Smith originally for complaints of dysfunctional uterine bleeding and chronic pelvic pain. She reported specifically that she has had increasing pelvic pain mostly with her cycles since the of twins approximately 2 years ago by section. She most recently has been having almost daily bleeding since February and as a result developed some anemia. She has also got to the point where she is using [place] to control her discomfort. She additionally complains of moderate dyspareunia. She was placed on a 35 mcg oral contraceptive pill and taking 2 daily to control the bleeding. She has undergone tubal ligation and is not interested in preserving further fertility. She has specifically requested definitive therapy with hysterectomy. PAST MEDICAL HISTORY: Significant for anemia as well as a history of nephrolithiasis. SURGICAL HISTORY: Significant for section as well as kidney surgery to remove a stone. She additionally underwent tubal ligation. There were no anesthetic concerns. OBSTETRICAL HISTORY: 4, para 2-1-1-4 with 2 term vaginal deliveries followed by a section for twins at 32 weeks. Method of contraception is tubal ligation. Although she is also using oral contraceptive pills for cycle control. GYNECOLOGIC HISTORY: Unremarkable with no history of any infections to include STDs. FAMILY HISTORY: Noncontributory. SOCIAL HISTORY: The patient is and is a nonsmoker. She denies any significant alcohol or any other social concerns. MEDICATIONS: Current medications include: 1. An oral contraceptive pill at least once daily. 2. Famotidine 40 mg daily. 3. [place] 5/325 mg p.r.n. 4. Omeprazole 40 mg daily. 5. vitamin daily. 6. Vitamin D2 daily. 7. Vitamin D3 daily. ALLERGIES: CEPHALOSPORINS caused hives as well as potential trouble with breathing. She has also reported the same with MORPHINE and PENICILLINS. She additionally has had similar issues with SULFA DRUGS as well as TYLENOL #3. REVIEW OF SYSTEMS: Confined to history of present illness. PHYSICAL EXAMINATION: Vital signs are stable. The patient is afebrile. In general, this is a well- developed, well-nourished white female in no acute distress. Her heart has a regular rhythm and rate without murmur. Her lungs are clear to auscultation bilaterally in all johnson. Her abdomen is nondistended, has normoactive bowel sounds, soft, nontender, and without any palpable masses, hepatosplenomegaly, or hernias. Her extremities are without any cyanosis, clubbing, or edema and are nontender to palpation bilaterally. Pelvic examination demonstrates normal external genitalia and BUS with normal vaginal mucosa and cervix. There is moderate tenderness with cervical motion. The uterus is 4 to 5 weeks in size, anteverted, mobile, minimally tender, but otherwise normal in shape. The adnexa are normal and nontender without mass bilaterally. ASSESSMENT AND PLAN: 1. Menometrorrhagia. 2. Chronic pelvic pain:. We discussed multiple options for intervention including hormonal manipulation, which has not worked to this point. She is also using narcotics on a regular basis for pain control. An endometrial ablation would not be likely to address all of the problems and given the patient's history, I suspect the strong possibility of adenomyosis. Given all these findings and her history of tubal ligation in place, I feel hysterectomy is the most appropriate. After discussion of potential options to proceed including vaginal hysterectomy versus to da Adam robotic hysterectomy, the patient has chosen to proceed with the Da Adam robotically assisted laparoscopic hysterectomy with bilateral salpingectomy and diagnostic cystoscopy. The risks and complications of the procedure have been thoroughly discussed including the risks for bleeding, bleeding requiring transfusion, infection, and injury to local structures to include the bowel, bladder, and ureters. I did give special attention to the bladder given her history of section. I then went on to discuss injuries that are unique to Da Adam surgery including that of thermal injury as well as vaginal cuff dehiscence in the future. She has understood all of these concerns and agreed to proceed. At this time, we are scheduled for the above procedure for the diagnoses as outlined above on the morning of Friday, June 17, 2017. Dictation done on June 16 for surgery on June 17, 2017. MMODL / IJN: [id number] /
[~2017-06-17 08:37] MED LIST: ceFAZolin IN SWFI 2 GM/20 ML SYRINGE IVP ONE
[2017-06-17] MEDS ORDERED: SCOPOLAMINE 1.5MG/72HR PATCH TRANSDERM ONE (09:45)
[2017-06-17] MEDS ORDERED: MIDAZOLAM 2 MG/2 ML VIAL IV ONE (09:47)
[2017-06-17] MEDS ORDERED: ONDANSETRON 4 MG/2 ML VIAL IVP ONE (09:48)
[2017-06-17] MEDS ORDERED: LACTATED RINGERS 1,000 ML IV ONE ×2 (09:48→09:50)
[2017-06-17] MEDS ORDERED: DEXAMETHASONE SOD PHOS (MDV) 100 MG/10 ML VIAL IV ONE (09:49)
[2017-06-17] MEDS ORDERED: CLINDAMYCIN 150 MG/ML 4 ML VIAL ONE (10:24)
[2017-06-17] MEDS ORDERED: MIDAZOLAM 2 MG/2 ML VIAL ONE (10:24)
[2017-06-17] MEDS ORDERED: diphenhydrAMINE 50 MG/ML 1 ML VIAL ONE (10:24)
[2017-06-17] MEDS ORDERED: HYDROmorphone (PF) 1 MG/ML ONE (10:24)
[2017-06-17] MEDS ORDERED: ROCURONIUM BROMIDE 10 MG/ML 10 ML VIAL IV ONE (10:24)
[2017-06-17] MEDS ORDERED: NEOSTIGMINE 1 MG/ML 10 ML VIAL ONE (10:24)
[2017-06-17] MEDS ORDERED: fentaNYL (PF) 50 MCG/ML 2 ML AMP ONE (10:24)
[2017-06-17] MEDS ORDERED: LIDOCAINE 1% INJ 10MG/ML (20 ML MDV) ONE (10:24)
[2017-06-17] MEDS ORDERED: SUCCINYLCHOLINE CHLORIDE 100 MG/5 ML SYR IV ONE (10:24)
[2017-06-17] MEDS ORDERED: GLYCOPYRROLATE 0.2 MG/ML 2 ML VIAL ONE (10:24)
[2017-06-17] MEDS ORDERED: PROPOFOL 10 MG/ML 20 ML VIAL IV ONE (10:24)
[2017-06-17] MEDS ORDERED: SIMETHICONE 80 MG CHEWABLE PO PRN (10:26)
[2017-06-17] MEDS ORDERED: ACETAMINOPHEN IV (For NPO) 1,000 MG in EMPTY BAG 1 BAG IVPB ONE (10:26)
[2017-06-17] MEDS ORDERED: ONDANSETRON 4 MG/2 ML VIAL IVP PRN (10:26)
[2017-06-17] MEDS ORDERED: METOCLOPRAMIDE 5 MG/ML 2 ML VIAL IVP PRN (10:26)
[2017-06-17] MEDS ORDERED: BUPIVACAINE (PF) 0.5% 30 ML VIAL SQ ONE (10:45)
[2017-06-17] MEDS ORDERED: HYDROcodone/APAP 5-325MG 1 EACH TAB PO PRN (12:07)
--- NOTE | 2017-06-17 12:20 | P.OP ---
Date of Procedure: 06/17/17 Preoperative Diagnosis: 1. Menometrorrhagia #2. Chronic pelvic pain Postoperative Diagnosis: Same Procedure(s) Performed: #1. Da Adam robotically assisted laparoscopic hysterectomy with bilateral salpingectomy #2. Diagnostic cystoscopy Anesthesia: MELY Surgeon: Calvin Mares Technical Sourcing Recruiter #1: Rosamaria Colbert Estimated Blood Loss (ml): 25 IV fluids (ml): 700 Urine output (ml): 100 Pathology: other (Uterus and bilateral fallopian tubes) Condition: stable Disposition: PACU Operative Findings: Preoperative pelvic examination demonstrated a 4-5 week midplane mobile normal shaped uterus with normal adnexa bilaterally. Intraoperatively, the uterus and ovaries were entirely normal. The bilateral fallopian tubes were normal although there was evidence of a previous bilateral partial salpingectomy. Following the procedure, the cystoscopic and laparoscopic view of the bladder demonstrated no evidence of damage to the dome or otherwise. The bilateral ureteral jets were seen peristalsing. Description of Procedure: The patient was prepped and draped in usual fashion after general endotracheal anesthesia was administered by the anesthesiologist. The bladder was catheterized of clear latosha urine and a weighted speculum placed in the vagina. The anterior lip of the cervix was grasped with a single-tooth tenaculum and a medium V care uterine manipulator placed in standard fashion without difficulty. Attention was then turned to the abdomen where an 8 mm incision was made in the transverse plane approximately 3 cm above the umbilicus. A 5 mm optical trocar was then placed and a pneumoperitoneum established without difficulty. A site was selected in the left lower quadrant approximately 12 cm lateral and 4 cm inferior to the optical port where an 8 mm incision was made in the transverse plane allowing insertion of an 8 mm da Adam trocar under direct vision station without difficulty. A similar site was selected in the right lower quadrant for an 8 mm da Adam port as well. The area between the optical port in the left lower quadrant port were then divided and a site selected approximately 4 cm superior to the division point where a 10 mm incision was made allowing insertion of a 10 mm program services assistant port under direct visualization. The scope was switched to a lateral port and the initial optical port was replaced with an 8 8mm da Adam port. The robot was then docked without difficulty and I presented to the console. The right arm, arm 1 , was loaded with the monopolar cautery scissors while the left arm, arm 2 was loaded with a [place] bipolar cautery forceps. The left fallopian tube was dissected from the underlying ovary down to its base at the cornu. The utero- ovarian ligament and round ligament were cauterized and divided. All dissection was carried out using bipolar cautery and monopolar cutting scissors. Once the round ligament was transected, the bladder peritoneum was undermined and incised across the midline and reflected somewhat distally. Skeletonization was carried out and what appeared to be at least the initial branch of the uterine artery and cauterized. Attention was then turned to the right side where similar operations were carried out without difficulty. There was some moderate oozing throughout the case which was made hemostatic with bipolar cautery. The bladder peritoneum was then connected to the previously established the incision and the bladder sharply and bluntly dissected distally. The uterine vasculature was then skeletonized and cauterized on the right side. Once adequate control had been returned attention was returned to the left side where similar operations were carried out. Once the uterus appeared blanched in color, it was anteverted and the posterior vagina entered sharply using the monopolar cautery scissors. Once the V care cuff was identified and was followed around circumferentially securing vessels along the way. The entire specimen was then removed from the patient and retracted into the vagina. There were some ongoing bleeding points along the vaginal cuff which were made hemostatic with cautery. The monopolar scissors was replaced with a laparoscopic suturing device. A stitch of 0 Stratafix suture was utilized to close the cuff from angle to angle in standard fashion without difficulty. The stitch was then removed. Thorough suction irrigation was carried out and it appeared that hemostasis was excellent. I then returned to the patient and remove the catheter inserted diagnostic cystoscope. The dome of the bladder was examined both laparoscopically and hysteroscopic Kit with no evidence of damage. The bilateral ureteral jets were noted to have peristalsis. The scope was then removed and the catheter reinserted. Estimated blood loss for the entire case was approximate 25 mL. There were no complications. All sponge, instrument, and needle counts were correct. The patient tolerated the procedure well and proceeded to the recovery room in stable condition.
[2017-06-17] MEDS: HYDROmorphone 4 MG/ML 1 ML SYRINGE IVP ONE ×2 (12:47→13:07)
[2017-06-17] MEDS ORDERED: diphenhydrAMINE 50 MG/ML 1 ML VIAL IVP ONE (13:19)
[2017-06-17] MEDS: HYDROcodone/APAP 5-325MG 1 EACH TAB PO PRN ×2 (16:42→22:11)
[2017-06-17 18:01] VITALS: RESP 16
[2017-06-17] MEDS: HYDROmorphone 4 MG/ML 1 ML SYRINGE IVP PRN (19:51)
[2017-06-17] MEDS: diphenhydrAMINE 50 MG/ML 1 ML VIAL IVP PRN (19:53)
[2017-06-17] MEDS ORDERED: SENNOSIDES-DOCUSATE SODIUM 1 EACH TAB PO SCH (21:00)
[2017-06-17] MEDS: LACTATED RINGERS 1,000 ML IV SCH ×2 (22:11→22:57)
[2017-06-18] MEDS: HYDROmorphone 4 MG/ML 1 ML SYRINGE IVP PRN ×2 (00:37→05:40)
[2017-06-18] MEDS: HYDROcodone/APAP 5-325MG 1 EACH TAB PO PRN ×3 (02:32→12:30)
[2017-06-18] MEDS: diphenhydrAMINE 50 MG/ML 1 ML VIAL IVP PRN ×2 (02:33→08:50)
[2017-06-18 07:49] LABS: Basophils # (A) 0.1 k/uL (0-0.2); Basophils % (A) 1 %; Eosinophils # (A) 0.1 k/uL (0-0.7); Eosinophils % (A) 1 %; HCT 37.4 % (34.0-46.0); HGB 12.1 gm/dL (11.4-16.0); Lymphocytes # (A) 2.2 k/uL (1.0-4.8); Lymphocytes % (A) 20 %; MCH 29.6 pg (25.0-35.0); MCHC 32.4 g/dL (31.0-37.0); MCV 91.4 fL (80.0-100.0); Mean Platelet Volume 6.5; Monocytes # (A) 0.5 k/uL (0-1.0); Monocytes % (A) 4 %; Neutrophils # (A) 7.9 k/uL (1.3-7.7); Neutrophils % (A) 73 %; Platelet Count 302 k/uL (150-450); RDW 13.3 % (11.5-15.5); WBC 10.9 k/uL (3.8-10.6)
[2017-06-18] MEDS: LACTATED RINGERS 1,000 ML IV SCH (08:05)
[2017-06-18 09:12] VITALS: BP 115/77; PULSE 67; TEMP 98.5
--- NOTE | 2017-06-18 12:22 | P.DS ---
Providers Date of admission: 06/18/17 02:42 Expected date of discharge: 06/18/17 Attending physician: Calvin Mares Primary care physician: Scot Smith - Discharge Diagnosis(es) (1) Chronic pelvic pain in female Current Visit: Yes Status: Acute (2) Menometrorrhagia Current Visit: Yes Status: Acute Hospital Course: The patient is a 27-year-old 4 para 2113 admitted for a da Adam robotically assisted laparoscopic hysterectomy. She had a history of significantly increasing cycle irregularity as well as significant pelvic pain and dyspareunia. After discussion of different options, she requested definitive therapy. Her examination before out that a da Adam hysterectomy was indicated and the patient requested rather than attempt vaginal hysterectomy. She was taken the operating room where she went da Adam robotically assisted laparoscopic hysterectomy with bilateral salpingectomy and subsequent diagnostic cystoscopy in an uncomplicated fashion. Please see the operative dictation for details. Her postoperative course was essentially unremarkable though she did complain of significant discomfort throughout the course of her postoperative stay. She was tolerating regular diet by the morning of postoperative day 1 and was deemed stable for discharge on that day. She was discharged home to follow-up in the office in 2 weeks for incision check and 8 weeks routinely. Discharge instructions included calling for any significantly increased vaginal bleeding, perineal pain, significant abdominal pain, urinary or GI complaints, or anything else that concerned her. She was additionally instructed to do no driving until off of pain medications or 2 weeks' time, whichever came first. She was last instructed to have nothing in the vagina for at least 8 weeks time to include intercourse. She understood these instructions and agrees to follow up as noted above. Discharge medications included any home medications plus a prescription for [place] 7.5/325 mg, 1-2 by mouth every 6 hours when necessary pain, #30 dispensed with no refills. Discharge hemoglobin and hematocrit were 12.1 and 37.4 respectively. Procedures: #1. Da Adam robotically assisted laparoscopic hysterectomy with bilateral salpingectomy #2. Diagnostic cystoscopy Patient Condition at Discharge: Stable Plan - Discharge Summary Discharge Rx Participant: Yes New Discharge Prescriptions: No Action Pty-Jqhl-Bumeo Acid [-U Capsule (formulary)] 1 cap PO HS Cholecalciferol [Vitamin D3] 5,000 unit PO HS Famotidine [Pepcid] 40 mg PO HS Ergocalciferol [Vitamin D2] 50,000 unit PO VELARDE Ibuprofen [Motrin] 600 mg PO Q6HR PRN PRN Reason: Pain Omeprazole [PriLOSEC] 40 mg PO HS Ondansetron Odt [Zofran Odt] 4 mg PO Q8HR PRN #10 tab PRN Reason: Nausea Hydrocodone/Acetaminophen [[place] 5-325] 1 tab PO TID PRN PRN Reason: Pain Ethynodiol D-Ethinyl Estradiol [[place] 1-35E Tablet] 2 tab PO HS Discharge Medication List Cholecalciferol [Vitamin D3] 5,000 unit PO HS 04/07/17 [History] Ergocalciferol [Vitamin D2] 50,000 unit PO VELARDE 04/07/17 [History] Famotidine [Pepcid] 40 mg PO HS 04/07/17 [History] Zyy-Bozv-Yryhz Acid [-U Capsule (formulary)] 1 cap PO HS [History] Ibuprofen [Motrin] 600 mg PO Q6HR PRN 05/24/17 [History] Omeprazole [PriLOSEC] 40 mg PO HS 05/24/17 [History] Ondansetron Odt [Zofran Odt] 4 mg PO Q8HR PRN #10 tab 05/24/17 [Rx] Ethynodiol D-Ethinyl Estradiol [[place] 1-35E Tablet] 2 tab PO HS 06/10/17 [ History] Hydrocodone/Acetaminophen [[place] 5-325] 1 tab PO TID PRN 06/10/17 [History] Follow up Appointment(s)/Referral(s): Calvin Mares MD [STAFF PHYSICIAN] - 2 Weeks Discharge Disposition: HOME SELF-CARE
== END 2017-06-18 13:40 | disposition home or self-care (01) ==
LOC: OR 08:37 → 6PED 12:18 → OR 06-18 02:42 → 4FBP 06-18 08:15
PROVIDERS: ADMIT Obstetrics & Gynecology; ATTEND Obstetrics & Gynecology
DX: N72 Inflammatory disease of cervix uteri (principal); N92.1 Excessive and frequent menstruation with irregular cycle; N87.9 Dysplasia of cervix uteri, unspecified; N94.10 Unspecified dyspareunia; D64.9 Anemia, unspecified; Z87.442 Personal history of urinary calculi; Z98.51 Tubal ligation status; Z79.3 Long term (current) use of hormonal contraceptives; Z79.899 Other long term (current) drug therapy; Z88.0 Allergy status to penicillin; Z88.1 Allergy status to other antibiotic agents; Z88.2 Allergy status to sulfonamides; Z88.5 Allergy status to narcotic agent
CPT/HCPCS: 58571; S2900; 81025; 85025; 86850; 86900; 86901; 88307

== ENCOUNTER 2017-07-03 16:18 | Emergency (ER) | payer BC ==
[2017-07-03] MEDS ORDERED: RX INFO: IV CONTRAST WAS GIVEN 1 EACH MISC MISCELLANE PRN (17:00)
[2017-07-03] MEDS ORDERED: HYDROmorphone 0.5 MG/0.5 ML SYRINGE IVP STA (17:00)
[2017-07-03] MEDS ORDERED: SODIUM CHLORIDE 0.9% 1,000 ML IV STA (17:00)
--- NOTE | 2017-07-03 17:03 | ED ---
General Adult HPI - General Chief complaint: Vaginal Bleeding Stated complaint: Post op vaginal bleeding/Abd Pain Time Seen by Provider: 07/03/17 16:53 Source: patient, RN notes reviewed Mode of arrival: wheelchair Limitations: no limitations - History of Present Illness Initial comments: 27-year-old female presents to the emergency department with a chief complaint of pelvic discomfort. She states she had a hysterectomy 2 weeks ago. She states that she tripped over the dog this morning and has since had some pelvic pain. She states sometimes and she pees she has some blood sometimes she doesn' t she states that she has been told that she could have spotting and states that she has been having slight on off and this is really no different.. She states it was done laparoscopically. She denies any head injury with the fall. She states that she did fall forward. She states that it just seems off and her pain seems to have worsen so she thought that she should be seen. Patient denies any other symptoms at this time. Patient denies any recent fever, chills , shortness of breath, chest pain, back pain, nausea vomiting, numbness or tingling, dysuria or hematuria, constipation or diarrhea, headaches or visual changes, or any other current symptoms. - Related Data Home Medications Medication Instructions Recorded Confirmed Ibuprofen [Motrin] 400 mg PO Q6HR PRN 05/24/17 07/03/17 Hydrocodone/Acetaminophen [[place] 1 tab PO TID PRN 06/10/17 07/03/17 5-325] diphenhydrAMINE [Benadryl] 25 mg PO DAILY 07/03/17 07/03/17 Previous Rx's Medication Instructions Recorded Ondansetron Odt [Zofran Odt] 4 mg PO Q8HR PRN #10 tab 05/24/17 Allergies Allergy/AdvReac Type Severity Reaction Status Date / Time azithromycin Allergy Rash/Hives/ Verified 07/03/17 17:05 Dyspnea Cephalosporins Allergy Rash/Hives Verified 07/03/17 17:05 codeine phosphate Allergy Rash/Hives Verified 07/03/17 17:05 [From Tylenol-Codeine #3] doxycycline Allergy Rash/Hives Verified 07/03/17 17:05 ketorolac [From Toradol] Allergy Rash/Hives Verified 07/03/17 17:05 metoclopramide HCl Allergy Rash/Hives Verified 07/03/17 17:05 [From Reglan] morphine Allergy Rash/Hives Verified 07/03/17 17:05 Penicillins Allergy Rash/Hives Verified 07/03/17 17:05 Sulfa (Sulfonamide Allergy Rash/Hives Verified 07/03/17 17:05 Antibiotics) tramadol Allergy Rash/Hives Verified 07/03/17 17:05 Review of Systems ROS Statement: Those systems with pertinent positive or pertinent negative responses have been documented in the HPI. ROS Other: All systems not noted in ROS Statement are negative. Past Medical History Past Medical History: No Reported History Additional Past Medical History / Comment(s): Patient with history of recurrent kidney stones, urinary tract and kidney infections. States "has what feels like heart cramps on occasion since she was 6 yrs old." Current issues with irregular menstrual bleeding, abd pain and endometriosis. [place] 2013 History of Any Multi-Drug Resistant Organisms: None Reported Past Surgical History: Section, Hysterectomy, Tubal Ligation Additional Past Surgical History / Comment(s): Hx lithotripsies with stents x10 , hx PICC Line x 6 months, hx surgery on left wrist. Past Anesthesia/Blood Transfusion Reactions: Previous Problems w/ Anesthesia, Postoperative Nausea & Vomiting (PONV) Additional Past Anesthesia/Blood Transfusion Reaction / Comment(s): Takes awhile to wake up after. Past Psychological History: Anxiety, Depression Smoking Status: Never smoker Past Alcohol Use History: None Reported Past Drug Use History: None Reported - Past Family History Father Family Medical History: Cancer General Exam - General Exam Comments Initial Comments: General: The patient is awake and alert, in no distress, and does not appear acutely ill. Eye: Pupils are equal, round and reactive to light, extra-ocular movements are intact; there is normal conjunctiva bilaterally. No signs of icterus. Ears, nose, mouth and throat: There are moist mucous membranes and no oral lesions. Neck: The neck is supple, there is no tenderness. Cardiovascular: There is a regular rate and rhythm. No murmur, rub or gallop is appreciated. Respiratory: Lungs are clear to auscultation, respirations are non-labored, breath sounds are equal. No wheezes, stridor, rales, or rhonchi. Gastrointestinal: Well-healing incision sites,soft, non-distended, suprapubic tenderness of the abdomen without masses or organomegaly noted. There is no rebound or guarding present. No CVA tenderness. Bowel sounds are unremarkable. Back: There is no tenderness to palpation in the midline. There is no obvious deformity. No rashes noted. Musculoskeletal: Normal ROM, no tenderness, There is no pedal edema. There is no calf tenderness or swelling. Sensation intact. Pulses equal bilaterally 2+. Neurological: CN II-XII intact, There are no obvious motor or sensory deficits. Coordination appears grossly intact. Speech is normal. Skin: Skin is warm and dry and no rashes or lesions are noted. Psychiatric: Cooperative, appropriate mood & affect, normal judgment. Limitations: no limitations Course Vital Signs 07/03/17 16:46 Temperature 98.8 F Pulse Rate 106 H Respiratory 24 Rate Blood Pressure 120/86 O2 Sat by Pulse 99 Oximetry Medical Decision Making - Medical Decision Making 27-year-old female presents for pelvic pain after a hysterectomy and fall. This time CAT scan has been reviewed that does not show any acute amount. Patient is sitting in the room more comfortable. This time we discussed that she is follow-up with her [facility] for continued care. We discussed return parameters all questions. Patient stated she understood and she is agreement this plan. All questions have been answered. She will be discharged. - Lab Data Result diagrams: 07/03/17 17:15 07/03/17 17:15 Lab Results 07/03/17 07/03/17 07/03/17 Range/Units 17:15 17:15 17:15 WBC 9.0 (3.8-10.6) k/uL RBC 4.75 (3.80-5.40) m/uL Hgb 14.0 (11.4-16.0) gm/dL Hct 43.9 (34.0-46.0) % MCV 92.5 (80.0-100.0) fL MCH 29.5 (25.0-35.0) pg MCHC 31.9 (31.0-37.0) g/dL RDW 13.0 (11.5-15.5) % Plt Count 380 (150-450) k/uL Neutrophils % 62 % Lymphocytes % 30 % Monocytes % 4 % Eosinophils % 3 % Basophils % 1 % Neutrophils # 5.6 (1.3-7.7) k/uL Lymphocytes # 2.7 (1.0-4.8) k/uL Monocytes # 0.3 (0-1.0) k/uL Eosinophils # 0.3 (0-0.7) k/uL Basophils # 0.1 (0-0.2) k/uL Sodium 141 (137-145) mmol/L Potassium 4.1 (3.5-5.1) mmol/L Chloride 104 (98-107) mmol/L Carbon Dioxide 22 (22-30) mmol/L Anion Gap 15 mmol/L BUN 10 (7-17) mg/dL Creatinine 0.68 (0.52-1.04) mg/dL Est GFR (MDRD) Af Amer >60 (>60 ml/min/1.73 sqM) Est GFR (MDRD) Non-Af >60 (>60 ml/min/1.73 sqM) Glucose 83 (74-99) mg/dL Calcium 10.0 (8.4-10.2) mg/dL Total Bilirubin 0.5 (0.2-1.3) mg/dL AST 17 (14-36) U/L ALT 32 (9-52) U/L Alkaline Phosphatase 86 (38-126) U/L Total Protein 8.4 H (6.3-8.2) g/dL Albumin 4.7 (3.5-5.0) g/dL Urine Color Light Yellow Urine Appearance Clear (Clear) Urine pH 6.5 (5.0-8.0) Ur Specific Cook 1.003 (1.001-1.035) Urine Protein Negative (Negative) Urine Glucose (UA) Negative (Negative) Urine Ketones Negative (Negative) Urine Blood Trace H (Negative) Urine Nitrite Negative (Negative) Urine Bilirubin Negative (Negative) Urine Urobilinogen <2.0 (<2.0) mg/dL Ur Leukocyte Esterase Small H (Negative) Urine RBC 1 (0-5) /hpf Urine WBC 4 (0-5) /hpf Ur Squamous Epith Cells 5 H (0-4) /hpf Urine Bacteria Moderate H (None) /hpf - Radiology Data Radiology results: report reviewed, image reviewed Disposition Clinical Impression: Pelvic pain Disposition: HOME SELF-CARE Condition: Stable Instructions: Abdominal Pain (ED) Additional Instructions: Please use medication as discussed. Please follow up with family doctor if symptoms have not improved over the next two days. Please return to the emergency room if your symptoms increase or worsen or for any other concerns. Referrals: Scot Smith MD [Primary Care Provider] - 1-2 days Time of Disposition: 18:49
[2017-07-03 17:38] LABS: Basophils # (A) 0.1 k/uL (0-0.2); Basophils % (A) 1 %; Eosinophils # (A) 0.3 k/uL (0-0.7); Eosinophils % (A) 3 %; HCT 43.9 % (34.0-46.0); Lymphocytes # (A) 2.7 k/uL (1.0-4.8); Lymphocytes % (A) 30 %; MCH 29.5 pg (25.0-35.0); MCHC 31.9 g/dL (31.0-37.0); MCV 92.5 fL (80.0-100.0); Mean Platelet Volume 6.1; Monocytes # (A) 0.3 k/uL (0-1.0); Monocytes % (A) 4 %; Neutrophils # (A) 5.6 k/uL (1.3-7.7); Neutrophils % (A) 62 %; Platelet Count 380 k/uL (150-450); RBC 4.75 m/uL (3.80-5.40)
[2017-07-03 17:46] LABS: Appearance,Urine Clear (Clear); Bacteria,Urine Moderate /hpf; Bilirubin,Urine Negative (Negative); Blood,Urine Trace (Negative); Color,Urine Light Yellow; Glucose,Urine (UA) Negative (Negative); Ketones,Urine Negative (Negative); Leukocyte Esterase,Urine Small (Negative); Nitrite,Urine Negative (Negative); PH, Urine 6.5 (5.0-8.0); Protein,Urine Negative (Negative); RBC,Urine 1 /hpf (0-5); Specific Gravity,Urine 1.003 (1.001-1.035); Squamous Epithelial Cell,Urine 5 /hpf (0-4); Urobilinogen,Urine <2.0 mg/dL (<2.0); WBC,Urine 4 /hpf (0-5)
[2017-07-03 17:48] LABS: ALT 32 U/L (9-52); AST 17 U/L (14-36); Albumin 4.7 g/dL (3.5-5.0); Alkaline Phosphatase 86 U/L (38-126); Anion Gap 15 mmol/L; Blood Urea Nitrogen 10 mg/dL (7-17); Carbon Dioxide 22 mmol/L (22-30); Chloride 104 mmol/L (98-107); Glucose 83 mg/dL (74-99); Potassium 4.1 mmol/L (3.5-5.1); Sodium 141 mmol/L (137-145); Total Bilirubin 0.5 mg/dL (0.2-1.3); Total Protein 8.4 g/dL (6.3-8.2)
--- NOTE | 2017-07-03 18:19 | CT ---
EXAMINATION TYPE: CT abdomen pelvis w con DATE OF EXAM: 07/03/2017 COMPARISON: 10/16/2016 CT HISTORY: Hysterectomy 2 weeks ago. Patient fell today, pelvic pain and vaginal bleeding. CT DLP: 380.30 mGycm Automated exposure control for dose reduction was used. TECHNIQUE: Helical acquisition of images was performed from the lung bases through the pelvis. CONTRAST: Performed without Oral Contrast and with IV Contrast, patient injected with 100 mL of Omnipaque 300. FINDINGS: LUNG BASES: No significant abnormality is appreciated. LIVER/GB: No significant abnormality is appreciated. PANCREAS: No significant abnormality is seen. SPLEEN: No significant abnormality is seen. ADRENALS: No significant abnormality is seen. KIDNEYS: No significant abnormality is seen. FREE AIR: No free air is visualized. RETROPERITONEAL ADENOPATHY: None visualized REPRODUCTIVE ORGANS: There is a 5 x 4 x 3.5 cm homogeneously cystlike smoothly marginated left adnexa l cyst not seen on the patient's CT. This presumably represents functional ovarian cyst, which can be proven with 2 or 6 week follow-up pelvic Doppler ultrasound. Small volume pelvic cul-de-sac fluid no amairani. URINARY BLADDER: No significant abnormality is seen. PELVIC ADENOPATHY: None visualized. OSSEOUS STRUCTURES: No significant abnormality is seen. BOWEL: No significant abnormality is seen. Appendix is normal in appearance. OTHER: Vasculature of the abdomen and pelvis is unremarkable. IMPRESSION: 1. NO ACUTE PROCESS. 2. LEFT ADNEXAL CYST NOTED, LIKELY FUNCTIONAL OVARIAN CYST.
[2017-07-03 19:02] VITALS: BP 106/69; PULSE 94; RESP 20; TEMP 97.1
== END 2017-07-03 19:07 | disposition home or self-care (01) ==
LOC: EC 16:18
DX: R10.2 Pelvic and perineal pain (principal); N99.820 Postprocedural hemorrhage of a genitourinary system organ or structure following a genitourinary system procedure; Z90.710 Acquired absence of both cervix and uterus; Z79.899 Other long term (current) drug therapy; Z88.1 Allergy status to other antibiotic agents; Z88.5 Allergy status to narcotic agent; Z88.6 Allergy status to analgesic agent; Z88.8 Allergy status to other drugs, medicaments and biological substances; Z88.0 Allergy status to penicillin; Z88.2 Allergy status to sulfonamides; W01.0XXA Fall on same level from slipping, tripping and stumbling without subsequent striking against object, initial encounter
CPT/HCPCS: 99284; 96374; 96361; 36415; 80053; 85025; 81001; 87086; 74177; Q9967; J1170

== ENCOUNTER 2017-07-04 20:45 | Emergency (ER) | payer BC ==
[2017-07-04 21:45] VITALS: RESP 18
[2017-07-04] MEDS ORDERED: SODIUM CHLORIDE 0.9% 1,000 ML IV ONE (22:22)
[2017-07-04] MEDS ORDERED: HYDROcodone/APAP 5-325MG 1 EACH TAB PO STA (22:22)
[2017-07-04] MEDS ORDERED: ONDANSETRON 4 MG/2 ML VIAL IVP STA (22:22)
[2017-07-04 23:26] LABS: Basophils # (A) 0.1 k/uL (0-0.2); Basophils % (A) 1 %; Eosinophils # (A) 0.3 k/uL (0-0.7); Eosinophils % (A) 3 %; HCT 42.5 % (34.0-46.0); HGB 14.2 gm/dL (11.4-16.0); Lymphocytes # (A) 2.7 k/uL (1.0-4.8); Lymphocytes % (A) 22 %; MCH 29.6 pg (25.0-35.0); MCHC 33.3 g/dL (31.0-37.0); MCV 88.8 fL (80.0-100.0); Mean Platelet Volume 6.6; Monocytes # (A) 0.3 k/uL (0-1.0); Monocytes % (A) 3 %; Neutrophils # (A) 8.7 k/uL (1.3-7.7); Neutrophils % (A) 71 %; Platelet Count 406 k/uL (150-450); RBC 4.79 m/uL (3.80-5.40); RDW 12.7 % (11.5-15.5); WBC 12.2 k/uL (3.8-10.6)
[2017-07-04 23:40] LABS: ALT 23 U/L (9-52); AST 18 U/L (14-36); Albumin 4.9 g/dL (3.5-5.0); Alkaline Phosphatase 82 U/L (38-126); Amylase 60 U/L (30-110); Anion Gap 12 mmol/L; Blood Urea Nitrogen 12 mg/dL (7-17); Calcium 10.6 mg/dL (8.4-10.2); Carbon Dioxide 24 mmol/L (22-30); Chloride 106 mmol/L (98-107); Glucose 86 mg/dL (74-99); Lipase 85 U/L (23-300); Sodium 142 mmol/L (137-145); Total Bilirubin 0.3 mg/dL (0.2-1.3)
--- NOTE | 2017-07-05 00:01 | ED ---
Abdominal Pain HPI - General Chief Complaint: Abdominal Pain Stated Complaint: Abd pain s/p surgery Time Seen by Provider: 07/04/17 21:49 Source: patient Mode of arrival: wheelchair Limitations: no limitations - History of Present Illness Initial Comments: 27-year-old female patient presented to the emergency department today with complaints of left lower quadrant abdominal pain. Patient is status post robot- assisted transvaginal hysterectomy 2 weeks ago. Patient states that she had been steadily improving however tripped over her dog yesterday and fell landing on her abdomen. She states that she was seen and evaluated here last night. States that her pain is not improving. States that she has been resting throughout the day. States she's been taking Tylenol and Motrin without relief. She states she is having light brown vaginal discharge. She denies any fevers or chills. She states that she is out of her [place]. She denies any low back pain. She denies any bruising from the incision sites. Patient denies any recent shortness breath, chest pain, nausea, vomiting, diarrhea, constipation, numbness, tingling, dizziness, weakness, hematuria, dysuria, urinary urgency, urinary frequency, headache, visual changes, or any other complaints. - Related Data Home Medications Medication Instructions Recorded Confirmed Ibuprofen [Motrin] 600 mg PO Q6HR PRN 05/24/17 07/04/17 Hydrocodone/Acetaminophen [[place] 1 tab PO TID PRN 06/10/17 07/04/17 5-325] diphenhydrAMINE [Benadryl] 25 mg PO DAILY 07/03/17 07/04/17 Acetaminophen [Tylenol Extra 1,000 mg PO Q6H PRN 07/04/17 07/04/17 Strength] Naproxen Sodium [Aleve] 440 mg PO BID PRN 07/04/17 07/04/17 Allergies Allergy/AdvReac Type Severity Reaction Status Date / Time azithromycin Allergy Rash/Hives/ Verified 07/04/17 22:32 Dyspnea Cephalosporins Allergy Rash/Hives Verified 07/04/17 22:32 codeine phosphate Allergy Rash/Hives Verified 07/04/17 22:32 [From Tylenol-Codeine #3] doxycycline Allergy Rash/Hives Verified 07/04/17 22:32 ketorolac [From Toradol] Allergy Rash/Hives Verified 07/04/17 22:32 metoclopramide HCl Allergy Rash/Hives Verified 07/04/17 22:32 [From Reglan] morphine Allergy Rash/Hives Verified 07/04/17 22:32 Penicillins Allergy Rash/Hives Verified 07/04/17 22:32 Sulfa (Sulfonamide Allergy Rash/Hives Verified 07/04/17 22:32 Antibiotics) tramadol Allergy Rash/Hives Verified 07/04/17 22:32 Review of Systems ROS Statement: Those systems with pertinent positive or pertinent negative responses have been documented in the HPI. ROS Other: All systems not noted in ROS Statement are negative. Past Medical History Past Medical History: No Reported History Additional Past Medical History / Comment(s): Patient with history of recurrent kidney stones, urinary tract and kidney infections. States "has what feels like heart cramps on occasion since she was 6 yrs old." Current issues with irregular menstrual bleeding, abd pain and endometriosis. [place] 2013 History of Any Multi-Drug Resistant Organisms: None Reported Past Surgical History: Section, Hysterectomy, Tubal Ligation Additional Past Surgical History / Comment(s): Hx lithotripsies with stents x10 , hx PICC Line x 6 months, hx surgery on left wrist. Past Anesthesia/Blood Transfusion Reactions: Previous Problems w/ Anesthesia, Postoperative Nausea & Vomiting (PONV) Additional Past Anesthesia/Blood Transfusion Reaction / Comment(s): Takes awhile to wake up after. Past Psychological History: Anxiety, Depression Smoking Status: Never smoker Past Alcohol Use History: None Reported Past Drug Use History: None Reported - Past Family History Father Family Medical History: Cancer General Exam Limitations: no limitations General appearance: alert, in no apparent distress, other Eye exam: Present: normal appearance (Social well-developed, well-nourished adult female patient in no acute distress. Vital signs upon presentation are temperature 98.4F, pulse 1:15, respirations 18, blood pressure 108/56, pulse ox 99% on room air.), PERRL, EOMI. Absent: scleral icterus, conjunctival injection, periorbital swelling ENT exam: Present: normal exam, normal oropharynx, mucous membranes moist Respiratory exam: Present: normal lung sounds bilaterally. Absent: respiratory distress, wheezes, rales, rhonchi, stridor Cardiovascular Exam: Present: regular rate, normal rhythm, normal heart sounds. Absent: systolic murmur, diastolic murmur, rubs, gallop, clicks GI/Abdominal exam: Present: soft, tenderness (Left lower quadrant tenderness), normal bowel sounds. Absent: distended, guarding, rebound, rigid Back exam: Present: normal inspection. Absent: CVA tenderness (R), CVA tenderness (L) Neurological exam: Present: alert, oriented X3, CN II-XII intact Psychiatric exam: Present: normal affect, normal mood Skin exam: Present: warm, dry, intact, normal color. Absent: rash Course Vital Signs 07/04/17 07/05/17 21:41 00:04 Temperature 98.4 F 97.9 F Pulse Rate 115 H 101 H Respiratory 18 18 Rate Blood Pressure 108/56 118/71 O2 Sat by Pulse 99 99 Oximetry Medical Decision Making - Medical Decision Making 27-year-old female patient percents to the emergency department today for evaluation of left lower quadrant abdominal pain. Patient is status post robotic-assisted transvaginal hysterectomy 2 weeks ago. Physical examination does reveal some mild left lower quadrant abdominal tenderness. White blood cell count is 12.2, other labs are unremarkable. Urinalysis is negative. Patient was seen and evaluated here last evening as well. She did undergo CT of the abdomen and pelvis with contrast at that time, no acute intra-abdominal abnormalities were seen. Patient does admit to being out of her [place], states that she lost the rest of her prescription here at the hospital when she visited yesterday. She states that she did call her primary care physician attempt to get a new prescription he will not give her one. I did discuss with her that we'll be unable to provide her with a narcotic prescription but she is urged to continue taking ibuprofen and Tylenol. She is instructed to call her surgeon and her primary care physician tomorrow or Friday to have refills. She is instructed to return here immediate for any new, worsening, or concerning symptoms. She verbalizes understanding and agrees with this plan. - Lab Data Result diagrams: 07/04/17 23:14 07/04/17 23:14 Lab Results 07/04/17 07/04/17 Range/Units 23:14 23:14 WBC 12.2 H (3.8-10.6) k/uL RBC 4.79 (3.80-5.40) m/uL Hgb 14.2 (11.4-16.0) gm/dL Hct 42.5 (34.0-46.0) % MCV 88.8 (80.0-100.0) fL MCH 29.6 (25.0-35.0) pg MCHC 33.3 (31.0-37.0) g/dL RDW 12.7 (11.5-15.5) % Plt Count 406 (150-450) k/uL Neutrophils % 71 % Lymphocytes % 22 % Monocytes % 3 % Eosinophils % 3 % Basophils % 1 % Neutrophils # 8.7 H (1.3-7.7) k/uL Lymphocytes # 2.7 (1.0-4.8) k/uL Monocytes # 0.3 (0-1.0) k/uL Eosinophils # 0.3 (0-0.7) k/uL Basophils # 0.1 (0-0.2) k/uL Sodium 142 (137-145) mmol/L Potassium 5.0 (3.5-5.1) mmol/L Chloride 106 (98-107) mmol/L Carbon Dioxide 24 (22-30) mmol/L Anion Gap 12 mmol/L BUN 12 (7-17) mg/dL Creatinine 0.70 (0.52-1.04) mg/dL Est GFR (MDRD) Af Amer >60 (>60 ml/min/1.73 sqM) Est GFR (MDRD) Non-Af >60 (>60 ml/min/1.73 sqM) Glucose 86 (74-99) mg/dL Calcium 10.6 H (8.4-10.2) mg/dL Total Bilirubin 0.3 (0.2-1.3) mg/dL AST 18 (14-36) U/L ALT 23 (9-52) U/L Alkaline Phosphatase 82 (38-126) U/L Total Protein 9.0 H (6.3-8.2) g/dL Albumin 4.9 (3.5-5.0) g/dL Amylase 60 (30-110) U/L Lipase 85 (23-300) U/L Disposition Clinical Impression: Abdominal pain Disposition: HOME SELF-CARE Condition: Good Instructions: Abdominal Pain (ED) Additional Instructions: Follow-up with your surgeon and primary care physician as soon as possible. Apply ice to the painful areas. Rest and do not lift. Return here immediately for any new, worsening, or concerning symptoms. Referrals: Scot Smith MD [Primary Care Provider] - 1-2 days Time of Disposition: 00:01
[2017-07-05 00:05] VITALS: BP 118/71; PULSE 101; TEMP 97.9
== END 2017-07-05 00:11 | disposition home or self-care (01) ==
LOC: EC 20:45
DX: R10.32 Left lower quadrant pain (principal); N89.8 Other specified noninflammatory disorders of vagina; Z79.899 Other long term (current) drug therapy; Z88.0 Allergy status to penicillin; Z88.1 Allergy status to other antibiotic agents; Z88.2 Allergy status to sulfonamides; Z88.5 Allergy status to narcotic agent; Z88.6 Allergy status to analgesic agent; Z88.8 Allergy status to other drugs, medicaments and biological substances; Z90.710 Acquired absence of both cervix and uterus
CPT/HCPCS: 36415; 80053; 82150; 83690; 85025; 99284; 96374; 96361; J2405

== ENCOUNTER 2017-08-13 17:11 | Emergency (ER) | payer BC ==
[2017-08-13 17:30] VITALS: BP 121/78; PULSE 101; RESP 20; TEMP 98.7
--- NOTE | 2017-08-13 17:51 | ED ---
General Adult HPI - General Chief complaint: Skin/Abscess/Foreign Body Stated complaint: Possible spider bite Time Seen by Provider: 08/13/17 17:34 Source: patient, RN notes reviewed Mode of arrival: ambulatory Limitations: no limitations - History of Present Illness Initial comments: Patient's 27-year-old female presenting to the emergency room today with a chief complaint of abscess to the right hand. Patient states that she noticed a small bump this morning. She states that she feels that her hand is swollen. She states she's been using some ice to the area. She states her has been small amount of drainage. She denies any other complaints or symptoms. Patient denies any recent fever, chills, shortness of breath, chest pain, back pain, abdominal pain, nausea or vomiting, headaches or visual changes, or any other complaints. - Related Data Home Medications Medication Instructions Recorded Confirmed Ibuprofen [Motrin] 600 mg PO Q6HR PRN 05/24/17 07/04/17 Hydrocodone/Acetaminophen [[place] 1 tab PO TID PRN 06/10/17 07/04/17 5-325] diphenhydrAMINE [Benadryl] 25 mg PO DAILY 07/03/17 07/04/17 Acetaminophen [Tylenol Extra 1,000 mg PO Q6H PRN 07/04/17 07/04/17 Strength] Naproxen Sodium [Aleve] 440 mg PO BID PRN 07/04/17 07/04/17 Previous Rx's Medication Instructions Recorded Clindamycin HCl [Cleocin] 300 mg PO Q6H 10 Days cap 08/13/17 Allergies Allergy/AdvReac Type Severity Reaction Status Date / Time azithromycin Allergy Rash/Hives/ Verified 08/13/17 17:26 Dyspnea Cephalosporins Allergy Rash/Hives Verified 08/13/17 17:26 codeine phosphate Allergy Rash/Hives Verified 08/13/17 17:26 [From Tylenol-Codeine #3] doxycycline Allergy Rash/Hives Verified 08/13/17 17:26 ketorolac [From Toradol] Allergy Rash/Hives Verified 08/13/17 17:26 metoclopramide HCl Allergy Rash/Hives Verified 08/13/17 17:26 [From Reglan] morphine Allergy Rash/Hives Verified 08/13/17 17:26 Penicillins Allergy Rash/Hives Verified 08/13/17 17:26 Sulfa (Sulfonamide Allergy Rash/Hives Verified 08/13/17 17:26 Antibiotics) tramadol Allergy Rash/Hives Verified 08/13/17 17:26 Review of Systems ROS Statement: Those systems with pertinent positive or pertinent negative responses have been documented in the HPI. ROS Other: All systems not noted in ROS Statement are negative. Past Medical History Past Medical History: No Reported History Additional Past Medical History / Comment(s): Patient with history of recurrent kidney stones, urinary tract and kidney infections. States "has what feels like heart cramps on occasion since she was 6 yrs old." Current issues with irregular menstrual bleeding, abd pain and endometriosis. [place] 2012 History of Any Multi-Drug Resistant Organisms: None Reported Past Surgical History: Section, Hysterectomy, Tubal Ligation Additional Past Surgical History / Comment(s): Hx lithotripsies with stents x10 , hx PICC Line x 6 months, hx surgery on left wrist. Past Anesthesia/Blood Transfusion Reactions: Previous Problems w/ Anesthesia, Postoperative Nausea & Vomiting (PONV) Additional Past Anesthesia/Blood Transfusion Reaction / Comment(s): Takes awhile to wake up after. Past Psychological History: Anxiety, Depression Smoking Status: Never smoker Past Alcohol Use History: None Reported Past Drug Use History: None Reported - Past Family History Father Family Medical History: Cancer General Exam - General Exam Comments Initial Comments: General: The patient is awake and alert, in no distress, and does not appear acutely ill. Eye: Pupils are equal, round and reactive to light, extra-ocular movements are intact. No nystagmus. There is normal conjunctiva bilaterally. No signs of icterus. Ears, nose, mouth and throat: There are moist mucous membranes and no oral lesions. Neck: The neck is supple, there is no tenderness or JVD. Musculoskeletal: Normal ROM, no tenderness. Strength 5/5. Sensation intact. Pulses equal bilaterally 2+. Neurological: A&O x 3. CN II-XII intact, There are no obvious motor or sensory deficits. Coordination appears grossly intact. Speech is normal. Skin: Patient does have small abscess to the hypothenar eminence of the right hand. Small white head appearance. Patient has centimeter across. No fluctuant area. No lymphangitic streaking. Psychiatric: Cooperative, appropriate mood & affect, normal judgment. Limitations: no limitations Course Vital Signs 08/13/17 17:26 Temperature 98.7 F Pulse Rate 101 H Respiratory 20 Rate Blood Pressure 121/78 O2 Sat by Pulse 94 L Oximetry Procedures - Procedures Initial comment: Area was cleaned with Betadine. An 18-gauge was used to make small incision and unroof the abscess head. Disposition Clinical Impression: Abscess Disposition: HOME SELF-CARE Condition: Good Instructions: Abscess (ED) Additional Instructions: Please use warm compresses to the affected areas 4 times daily. Please use antibiotic as prescribed for signs of infection which may include increased pain swelling or redness. Please return to emergency room for any other concerns. Prescriptions: Clindamycin HCl [Cleocin] 300 mg PO Q6H 10 Days cap Referrals: Scot Smith MD [Primary Care Provider] - 1-2 days Time of Disposition: 17:50
== END 2017-08-13 17:58 | disposition home or self-care (01) ==
LOC: EC 17:11
DX: L02.511 Cutaneous abscess of right hand (principal); Z79.899 Other long term (current) drug therapy; Z88.0 Allergy status to penicillin; Z88.1 Allergy status to other antibiotic agents; Z88.2 Allergy status to sulfonamides; Z88.5 Allergy status to narcotic agent; Z88.6 Allergy status to analgesic agent; Z88.8 Allergy status to other drugs, medicaments and biological substances
CPT/HCPCS: 99282

== ENCOUNTER 2017-08-22 19:00 | Emergency (ER) | payer BC ==
[2017-08-22 19:22] VITALS: RESP 16
[2017-08-22] MEDS ORDERED: diphenhydrAMINE 50 MG/ML 1 ML VIAL IVP STA (19:46)
[2017-08-22] MEDS ORDERED: SODIUM CHLORIDE 0.9% 1,000 ML IV STA (19:46)
[2017-08-22] MEDS ORDERED: ONDANSETRON 4 MG/2 ML VIAL IVP STA (19:46)
[2017-08-22] MEDS ORDERED: MORPHINE SULFATE/PF 10MG/10ML VL IVP PRN (19:48)
[2017-08-22] MEDS ORDERED: MORPHINE SULFATE 4MG/4ML SYRG IVP STA ×2 (19:52→22:29)
--- NOTE | 2017-08-22 19:53 | ED ---
General Adult HPI - General Chief complaint: Abdominal Pain Stated complaint: Flank pain Time Seen by Provider: 08/22/17 19:36 Source: patient, family, RN notes reviewed, old records reviewed Mode of arrival: wheelchair Limitations: no limitations - History of Present Illness Initial comments: Chief complaint and history of present illness a 27-year-old female with multiple episodes of kidney stones bilaterally. Patient reports she's had 10 surgeries over the years including stents bilaterally. She's only passed one stone in her history. The pain started 3 days ago nausea and diarrhea flank pain more on the left than the right. - Related Data Previous Rx's Medication Instructions Recorded Hydrocodone/Acetaminophen [[place] 1 each PO Q6HR PRN #12 tab 08/22/17 5-325] Ondansetron Odt [Zofran Odt] 4 mg PO Q8HR PRN #10 tab 08/22/17 Tamsulosin [Flomax] 0.4 mg PO DAILY #14 cap 08/22/17 Allergies Allergy/AdvReac Type Severity Reaction Status Date / Time azithromycin Allergy Rash/Hives/ Verified 08/22/17 19:42 Dyspnea Cephalosporins Allergy Rash/Hives Verified 08/22/17 19:42 codeine phosphate Allergy Rash/Hives Verified 08/22/17 19:42 [From Tylenol-Codeine #3] doxycycline Allergy Rash/Hives Verified 08/22/17 19:42 ketorolac [From Toradol] Allergy Rash/Hives Verified 08/22/17 19:42 metoclopramide HCl Allergy Rash/Hives Verified 08/22/17 19:42 [From Reglan] morphine Allergy Rash/Hives Verified 08/22/17 19:42 Penicillins Allergy Rash/Hives Verified 08/22/17 19:42 Sulfa (Sulfonamide Allergy Rash/Hives Verified 08/22/17 19:42 Antibiotics) tramadol Allergy Rash/Hives Verified 08/22/17 19:42 Review of Systems ROS Statement: Those systems with pertinent positive or pertinent negative responses have been documented in the HPI. Review of systems no headache or visual acuity changes no stiff neck no chest pain no shortness of breath she has discomfort bilateral flanks left greater than the right. Nausea no vomiting she hasn't diarrhea. The patient recently i.e. 7 weeks ago had a hysterectomy. Has healed well. Was told that time she had a left ovarian cyst. No neuro deficits. All systems are reviewed. Past medical problems significant for multiple kidney stones, history of 10 surgeries for stones mostly stents. The last one was October of last year. She's also had lithotripsy. Patient's had a history of anemia. She had one , 4 children. Hysterectomy 7 weeks ago. Past history includes endometriosis. Family history includes cancers; stomach, ovarian, breast, brain, colon. Patient was advised she needs colonoscopies because of family relationship. Patient has ALLERGIES to azithromycin, cephalosporins, codeine phosphate, doxycycline, ketorolac, metoclopramide, morphine. Patient reports that she can take morphine if she has IV Benadryl and antinausea medication before hand. Dilaudid is not available to this time. Patient denies smoking denies drinking. ROS Other: All systems not noted in ROS Statement are negative. Past Medical History Past Medical History: No Reported History Additional Past Medical History / Comment(s): Patient with history of recurrent kidney stones, urinary tract and kidney infections. States "has what feels like heart cramps on occasion since she was 6 yrs old." Current issues with irregular menstrual bleeding, abd pain and endometriosis. [place]arrage 2013 History of Any Multi-Drug Resistant Organisms: None Reported Past Surgical History: Section, Hysterectomy, Tubal Ligation Additional Past Surgical History / Comment(s): Hx lithotripsies with stents x10 , hx PICC Line x 6 months, hx surgery on left wrist. Past Anesthesia/Blood Transfusion Reactions: Previous Problems w/ Anesthesia, Postoperative Nausea & Vomiting (PONV) Additional Past Anesthesia/Blood Transfusion Reaction / Comment(s): Takes awhile to wake up after. Past Psychological History: Anxiety, Depression Smoking Status: Never smoker Past Alcohol Use History: None Reported Past Drug Use History: None Reported - Past Family History Father Family Medical History: Cancer General Exam - General Exam Comments Initial Comments: General: The patient is awake and alert, complaining for the past 3 days of bilateral flank pain left worse than the right. Associated with nausea and loose stool. Vital signs show temperature 97.3 pulse 113 her story rate 16 pulse ox on percent room air blood pressure 121/86.. Eye: Pupils are equal, round and reactive to light, extra-ocular movements are intact ; there is normal conjunctiva bilaterally. No signs of icterus. Ears, nose, mouth and throat: There are moist mucous membranes and no oral lesions. Neck: The neck is supple, there is no tenderness, no anterior cervical lymphadenopathy. Cardiovascular: Tachycardic heart rate, 113.. No murmur, rub or gallop is appreciated. Respiratory: Lungs are clear to auscultation, respirations are non-labored, breath sounds are equal. No wheezes, stridor, rales, or rhonchi. Gastrointestinal: Healed surgical scars post-laparoscopic hysterectomy. Discomfort left lower quadrant which originates from the left flank area. Back: Left flank discomfort. Musculoskeletal: Normal ROM, no tenderness, There is no pedal edema. There is no calf tenderness or swelling. Sensation intact. Pulses equal bilaterally 2+. Neurological: Denies any dizziness or neuro deficits. Alert and oriented. Skin: No rashes, early shingles discussed. Psychiatric: Cooperative, Limitations: no limitations Course Vital Signs 08/22/17 08/22/17 08/22/17 19:16 21:01 22:14 Temperature 97.3 F L 98.6 F 98.3 F Pulse Rate 113 H 101 H 103 H Respiratory 16 16 16 Rate Blood Pressure 121/86 133/91 124/82 O2 Sat by Pulse 100 99 100 Oximetry Medical Decision Making - Medical Decision Making Medical decision making; the 19-year-old female here with a complaint of bilateral flank pain left side worse than the right. She's had some nausea no vomiting and some diarrhea. Patient reports she's had multiple, over 10 times, stents placed in her kidneys because of urinary tract infections and kidney stones. Patient's denying any chills or fever. No frequency urgency or dysuria. Labs show a white count of 9.8 hemoglobin 14 hematocrit of 41 with a potassium 4.2 BUN 9 creatinine 0.58 GFR greater than 90. Glucose 88. Amylase lipase normal. Urine clean no signs of infection or blood. X-ray of the abdomen was done and reviewed by radiologist his impression is there is no sign of intestinal obstruction or pneumoperitoneum. Bowel gas pattern is normal. Fecal pattern is normal. There are no pathologic calcifications. Lung bases are clear. Impression nonacute abdomen. There is removal of the ureteral stents compared to old exam. As read by Dr. Joshua CT of the abdomen was done showing nonobstructing bilateral renal calcifications. No sign of acute abdomen. Pelvis normal. There is clearing of the left adnexal cystic mass compared to last exam. No signs of appendicitis. As read by Dr. Joshua Patient states she is feeling better. She has been instructed to follow with her family physician and her urologist. She'll be sent home medications to help her over the next day or 2. - Lab Data Result diagrams: 08/22/17 20:00 08/22/17 20:00 Lab Results 08/22/17 08/22/17 08/22/17 Range/Units 19:50 20:00 20:00 WBC 9.8 (3.8-10.6) k/uL RBC 4.78 (3.80-5.40) m/uL Hgb 14.1 (11.4-16.0) gm/dL Hct 41.7 (34.0-46.0) % MCV 87.3 (80.0-100.0) fL MCH 29.5 (25.0-35.0) pg MCHC 33.8 (31.0-37.0) g/dL RDW 12.4 (11.5-15.5) % Plt Count 413 (150-450) k/uL Neutrophils % 76 % Lymphocytes % 18 % Monocytes % 3 % Eosinophils % 2 % Basophils % 0 % Neutrophils # 7.4 (1.3-7.7) k/uL Lymphocytes # 1.8 (1.0-4.8) k/uL Monocytes # 0.3 (0-1.0) k/uL Eosinophils # 0.2 (0-0.7) k/uL Basophils # 0.0 (0-0.2) k/uL Sodium 141 (137-145) mmol/L Potassium 4.2 (3.5-5.1) mmol/L Chloride 104 (98-107) mmol/L Carbon Dioxide 21 L (22-30) mmol/L Anion Gap 16 mmol/L BUN 9 (7-17) mg/dL Creatinine 0.58 (0.52-1.04) mg/dL Est GFR (CKD-EPI)AfAm >90 (>60 ml/min/1.73 sqM) Est GFR (CKD-EPI)NonAf >90 (>60 ml/min/1.73 sqM) Glucose 88 (74-99) mg/dL Calcium 10.0 (8.4-10.2) mg/dL Total Bilirubin 0.4 (0.2-1.3) mg/dL AST 17 (14-36) U/L ALT 20 (9-52) U/L Alkaline Phosphatase 84 (38-126) U/L Total Protein 8.4 H (6.3-8.2) g/dL Albumin 4.8 (3.5-5.0) g/dL Amylase 43 (30-110) U/L Lipase 40 (23-300) U/L Urine Color Light Yellow Urine Appearance Clear (Clear) Urine pH 7.0 (5.0-8.0) Ur Specific [place] 1.008 (1.001-1.035) Urine Protein Negative (Negative) Urine Glucose (UA) Negative (Negative) Urine Ketones Negative (Negative) Urine Blood Negative (Negative) Urine Nitrite Negative (Negative) Urine Bilirubin Negative (Negative) Urine Urobilinogen <2.0 (<2.0) mg/dL Ur Leukocyte Esterase Negative (Negative) Disposition Clinical Impression: Renal colic on left side Disposition: HOME SELF-CARE Condition: Fair Instructions: Renal Colic (ED) Additional Instructions: Increase fluids. Take medications as directed. Follow-up with family physician and urologist. Return emergency room as needed. Prescriptions: Hydrocodone/Acetaminophen [[place] 5-325] 1 each PO Q6HR PRN #12 tab PRN Reason: Pain Ondansetron Odt [Zofran Odt] 4 mg PO Q8HR PRN #10 tab PRN Reason: Nausea Tamsulosin [Flomax] 0.4 mg PO DAILY #14 cap Referrals: Scot Smith MD [Primary Care Provider] - 1-2 days Time of Disposition: 22:36
[2017-08-22 20:15] LABS: Basophils % (A) 0 %; Eosinophils # (A) 0.2 k/uL (0-0.7); Eosinophils % (A) 2 %; HCT 41.7 % (34.0-46.0); HGB 14.1 gm/dL (11.4-16.0); Lymphocytes # (A) 1.8 k/uL (1.0-4.8); Lymphocytes % (A) 18 %; MCH 29.5 pg (25.0-35.0); MCHC 33.8 g/dL (31.0-37.0); MCV 87.3 fL (80.0-100.0); Mean Platelet Volume 6.5; Monocytes # (A) 0.3 k/uL (0-1.0); Monocytes % (A) 3 %; Neutrophils # (A) 7.4 k/uL (1.3-7.7); Neutrophils % (A) 76 %; Platelet Count 413 k/uL (150-450); RBC 4.78 m/uL (3.80-5.40); RDW 12.4 % (11.5-15.5); WBC 9.8 k/uL (3.8-10.6)
[2017-08-22 20:17] LABS: Appearance,Urine Clear (Clear); Bilirubin,Urine Negative (Negative); Blood,Urine Negative (Negative); Color,Urine Light Yellow; Glucose,Urine (UA) Negative (Negative); Ketones,Urine Negative (Negative); Leukocyte Esterase,Urine Negative (Negative); Nitrite,Urine Negative (Negative); Protein,Urine Negative (Negative); Specific Gravity,Urine 1.008 (1.001-1.035); Urobilinogen,Urine <2.0 mg/dL (<2.0)
--- NOTE | 2017-08-22 20:22 | XR ---
EXAMINATION TYPE: XR abdomen 2V DATE OF EXAM: 08/22/2017 COMPARISON: 11/09/2016 HISTORY: Left flank pain TECHNIQUE: 2 views FINDINGS: There is no sign of intestinal obstruction or pneumoperitoneum. Bowel gas pattern is normal . Fecal pattern is normal. There are no pathologic calcifications. Lung bases are clear. IMPRESSION: Nonacute abdomen. There is removal of the ureteral stents compared to old exam.
[2017-08-22 20:26] LABS: ALT 20 U/L (9-52); AST 17 U/L (14-36); Albumin 4.8 g/dL (3.5-5.0); Alkaline Phosphatase 84 U/L (38-126); Amylase 43 U/L (30-110); Anion Gap 16 mmol/L; Blood Urea Nitrogen 9 mg/dL (7-17); Carbon Dioxide 21 mmol/L (22-30); Chloride 104 mmol/L (98-107); Glucose 88 mg/dL (74-99); Lipase 40 U/L (23-300); Potassium 4.2 mmol/L (3.5-5.1); Sodium 141 mmol/L (137-145); Total Bilirubin 0.4 mg/dL (0.2-1.3); Total Protein 8.4 g/dL (6.3-8.2)
[2017-08-22] MEDS ORDERED: ONDANSETRON 2 MG/1 ML 20 ML (MDV) VIAL IV STA (20:27)
--- NOTE | 2017-08-22 22:10 | CT ---
EXAMINATION TYPE: CT abdomen pelvis wo con DATE OF EXAM: 08/22/2017 COMPARISON: 07/03/2017 HISTORY: Bilateral flank pain CT DLP: 371 mGycm Automated exposure control for dose reduction was used. TECHNIQUE: Helical acquisition of images was performed from the lung bases through the pelvis. FINDINGS: Lung bases are clear. There is no pleural effusion. Heart size is normal. Liver spleen pancreas appear normal. Bile ducts are not dilated. Gallbladder appears normal. There is no adrenal mass. Kidneys of normal size and contour. There is a 4 mm calculus in the interpo lar left kidney. There are probably other tiny left renal calculi. Ureters are not dilated. There is no hydronephrosis. There is no retroperitoneal adenopathy. Appendix is partly seen and appears normal. There is no ascites. There is no sign of free air. Bladder distends smoothly. Uterus is retroverted. There is no sign of a pelvic mass. There are probab ly tiny 1 mm right renal calcifications. Lumbar spine is intact. IMPRESSION: NONOBSTRUCTING BILATERAL RENAL CALCIFICATIONS. NO SIGN OF ACUTE ABDOMEN AND PELVIS. THERE IS CLEARING OF THE LEFT ADNEXAL CYSTIC MASS COMPARED TO LAST EXAM. NO SIGN OF APPENDICITIS.
[2017-08-22 22:15] VITALS: BP 124/82; PULSE 103; TEMP 98.3
== END 2017-08-22 22:45 | disposition home or self-care (01) ==
LOC: EC 19:00
DX: N23 Unspecified renal colic (principal); R00.0 Tachycardia, unspecified; R19.00 Intra-abdominal and pelvic swelling, mass and lump, unspecified site; R19.7 Diarrhea, unspecified; Z88.0 Allergy status to penicillin; Z88.1 Allergy status to other antibiotic agents; Z88.2 Allergy status to sulfonamides; Z88.5 Allergy status to narcotic agent; Z88.6 Allergy status to analgesic agent; Z98.890 Other specified postprocedural states
CPT/HCPCS: 99285; 96374; 96375; 96361 ×2; 36415; 80053; 82150; 83690; 85025; 81003; 87086; 74019; 74176; J1200; J2405; J2270

== ENCOUNTER 2017-09-01 18:43 | Emergency (ER) | payer BC ==
[2017-09-01 18:52] VITALS: RESP 18
[2017-09-01] MEDS ORDERED: HYDROcodone/APAP 5-325MG 1 EACH TAB PO STA (19:12)
[2017-09-01] MEDS ORDERED: SODIUM CHLORIDE 0.9% 1,000 ML IV ONE (19:12)
--- NOTE | 2017-09-01 19:16 | ED ---
General Adult HPI - General Chief complaint: Urogenital Stated complaint: Kidney Stone Time Seen by Provider: 09/01/17 18:55 Source: patient Mode of arrival: ambulatory Limitations: no limitations - History of Present Illness Initial comments: Patient is a 27-year-old female who presents with a chief complaint of back pain and urinary urgency. The patient states this is been going on for a week and a half. She was seen at this emergency Department on the of this month where she had a CAT scan performed that did not show any obstructive uropathy. She has kidney stones with in bilateral kidneys. The patient states that after her visit here she saw her primary care doctor who started her on Cipro for a urinary tract infection. Cultures were reviewed from 08/22 and show normal lalo. Patient cannot identify any inciting incidents as to her pain. She denies any aggravating or alleviating factors. Timing is been constant over the last week and a half, the patient states that her pain is worse today. She locates most of her pain on the right flank. She admits to diarrhea for one day. - Related Data Home Medications Medication Instructions Recorded Confirmed Ciprofloxacin HCl [Cipro] 250 mg PO Q12HR 09/01/17 09/01/17 Ibuprofen [Motrin Ib] 600 mg PO Q6H PRN 09/01/17 09/01/17 Phenazopyridine [Pyridium] 100 mg PO TID PRN 09/01/17 09/01/17 Previous Rx's Medication Instructions Recorded HYDROcodone/APAP 5-325MG [[place] 1 tab PO Q6HR PRN #12 tab 09/01/17 5-325] Levofloxacin [Levaquin] 750 mg PO DAILY #4 tab 09/01/17 Allergies Allergy/AdvReac Type Severity Reaction Status Date / Time azithromycin Allergy Rash/Hives/ Verified 09/01/17 18:52 Dyspnea Cephalosporins Allergy Rash/Hives Verified 09/01/17 18:52 codeine phosphate Allergy Rash/Hives Verified 09/01/17 18:52 [From Tylenol-Codeine #3] doxycycline Allergy Rash/Hives Verified 09/01/17 18:52 ketorolac [From Toradol] Allergy Rash/Hives Verified 09/01/17 18:52 metoclopramide HCl Allergy Rash/Hives Verified 09/01/17 18:52 [From Reglan] morphine Allergy Rash/Hives Verified 09/01/17 18:52 Penicillins Allergy Rash/Hives Verified 09/01/17 18:52 Sulfa (Sulfonamide Allergy Rash/Hives Verified 09/01/17 18:52 Antibiotics) tramadol Allergy Rash/Hives Verified 09/01/17 18:52 Review of Systems ROS Statement: Those systems with pertinent positive or pertinent negative responses have been documented in the HPI. ROS Other: All systems not noted in ROS Statement are negative. Genitourinary: Reports: urgency Past Medical History Past Medical History: No Reported History Additional Past Medical History / Comment(s): Patient with history of recurrent kidney stones, urinary tract and kidney infections. States "has what feels like heart cramps on occasion since she was 6 yrs old." Current issues with irregular menstrual bleeding, abd pain and endometriosis. miscarr[place] 2013 History of Any Multi-Drug Resistant Organisms: None Reported Past Surgical History: Section, Hysterectomy, Tubal Ligation Additional Past Surgical History / Comment(s): Hx lithotripsies with stents x10 , hx PICC Line x 6 months, hx surgery on left wrist. Past Anesthesia/Blood Transfusion Reactions: Previous Problems w/ Anesthesia, Postoperative Nausea & Vomiting (PONV) Additional Past Anesthesia/Blood Transfusion Reaction / Comment(s): Takes awhile to wake up after. Past Psychological History: Anxiety, Depression Smoking Status: Never smoker Past Alcohol Use History: None Reported Past Drug Use History: None Reported - Past Family History Father Family Medical History: Cancer General Exam Limitations: no limitations General appearance: alert, in no apparent distress Head exam: Present: atraumatic, normocephalic Eye exam: Present: normal appearance ENT exam: Present: normal exam Respiratory exam: Present: normal lung sounds bilaterally. Absent: respiratory distress Cardiovascular Exam: Present: regular rate, normal rhythm GI/Abdominal exam: Present: soft. Absent: distended, tenderness Rectal exam: Present: deferred Back exam: Present: CVA tenderness (R). Absent: CVA tenderness (L) Neurological exam: Present: alert, oriented X3 Psychiatric exam: Present: normal affect, normal mood Skin exam: Present: warm, dry, intact Course Vital Signs 09/01/17 09/01/17 18:49 21:08 Temperature 97.9 F Pulse Rate 95 100 Respiratory 18 18 Rate Blood Pressure 125/84 117/74 O2 Sat by Pulse 99 98 Oximetry Medical Decision Making - Medical Decision Making Patient presents with a chief complaint of dysuria and urinary frequency. Patient has a history of recurrent urinary tract infections. She was here on and had a negative workup at that time. Patient states that since then her symptoms never went away. Patient will be evaluated today with basic abdominal labs. She'll have ultrasounds of the abdomen performed. Urinalysis and urine culture were resent. 10:31 PM Lab evaluation of this patient shows evidence of a urinary tract infection. Labs are otherwise unremarkable. Ultrasound of the abdomen are unremarkable as well. Patient was given her first dose of Levaquin in the emergency department and after an hour of observation did not have an adverse reaction. At this time , patient is stable for outpatient management. She'll be prescribed a total of 5 days of Levaquin. Patient states she has been taking Pyridium at home all week therefore she will not be prescribed Pyridium. I discussed with her the adverse effects of Pyridium and advised that she discontinue use at home. Patient was instructed to follow up with primary care in 1-3 days. She was instructed to return to the emergency department if her symptoms worsen or change. - Lab Data Result diagrams: 09/01/17 19:15 09/01/17 19:15 Lab Results 09/01/17 09/01/17 09/01/17 Range/Units 19:15 19:15 19:15 WBC 14.4 H (3.8-10.6) k/uL RBC 4.95 (3.80-5.40) m/uL Hgb 14.5 (11.4-16.0) gm/dL Hct 44.1 (34.0-46.0) % MCV 89.1 (80.0-100.0) fL MCH 29.3 (25.0-35.0) pg MCHC 32.9 (31.0-37.0) g/dL RDW 12.4 (11.5-15.5) % Plt Count 488 H (150-450) k/uL Neutrophils % 80 % Lymphocytes % 14 % Monocytes % 3 % Eosinophils % 3 % Basophils % 0 % Neutrophils # 11.6 H (1.3-7.7) k/uL Lymphocytes # 2.0 (1.0-4.8) k/uL Monocytes # 0.4 (0-1.0) k/uL Eosinophils # 0.4 (0-0.7) k/uL Basophils # 0.0 (0-0.2) k/uL Sodium 144 (137-145) mmol/L Potassium 4.0 (3.5-5.1) mmol/L Chloride 106 (98-107) mmol/L Carbon Dioxide 22 (22-30) mmol/L Anion Gap 16 mmol/L BUN 10 (7-17) mg/dL Creatinine 0.63 (0.52-1.04) mg/dL Est GFR (CKD-EPI)AfAm >90 (>60 ml/min/1.73 sqM) Est GFR (CKD-EPI)NonAf >90 (>60 ml/min/1.73 sqM) Glucose 95 (74-99) mg/dL Calcium 10.3 H (8.4-10.2) mg/dL Total Bilirubin 0.5 (0.2-1.3) mg/dL AST 19 (14-36) U/L ALT 31 (9-52) U/L Alkaline Phosphatase 90 (38-126) U/L Total Protein 8.9 H (6.3-8.2) g/dL Albumin 5.2 H (3.5-5.0) g/dL Lipase 103 (23-300) U/L Urine Color Dark Brown Urine Appearance Cloudy H (Clear) Urine pH 6.5 (5.0-8.0) Ur Specific [place] 1.016 (1.001-1.035) Urine Protein 1+ H (Negative) Urine Glucose (UA) Negative (Negative) Urine Ketones Negative (Negative) Urine Blood Small H (Negative) Urine Nitrite Positive H (Negative) Urine Bilirubin Negative (Negative) Urine Urobilinogen 2.0 (<2.0) mg/dL Ur Leukocyte Esterase Large H (Negative) Urine RBC 44 H (0-5) /hpf Urine WBC >182 H (0-5) /hpf Urine WBC Clumps Moderate H (None) /hpf Ur Squamous Epith Cells 1 (0-4) /hpf Urine Mucus Rare H (None) /hpf Disposition Clinical Impression: Urinary tract infection Disposition: HOME SELF-CARE Condition: Good Instructions: Urinary Tract Infection in Women (ED) Is patient prescribed a controlled substance at d/c from ED?: Yes Referrals: Scot Smith MD [Primary Care Provider] - 1-2 days
[2017-09-01] MEDS ORDERED: SODIUM CHLORIDE 0.9% 2,000 ML IV ONE (19:19)
[2017-09-01 19:38] LABS: Basophils % (A) 0 %; Eosinophils # (A) 0.4 k/uL (0-0.7); Eosinophils % (A) 3 %; HCT 44.1 % (34.0-46.0); HGB 14.5 gm/dL (11.4-16.0); Lymphocytes % (A) 14 %; MCH 29.3 pg (25.0-35.0); MCHC 32.9 g/dL (31.0-37.0); MCV 89.1 fL (80.0-100.0); Mean Platelet Volume 6.5; Monocytes # (A) 0.4 k/uL (0-1.0); Monocytes % (A) 3 %; Neutrophils # (A) 11.6 k/uL (1.3-7.7); Neutrophils % (A) 80 %; Platelet Count 488 k/uL (150-450); RBC 4.95 m/uL (3.80-5.40); RDW 12.4 % (11.5-15.5); WBC 14.4 k/uL (3.8-10.6)
[2017-09-01 19:46] LABS: ALT 31 U/L (9-52); AST 19 U/L (14-36); Albumin 5.2 g/dL (3.5-5.0); Alkaline Phosphatase 90 U/L (38-126); Anion Gap 16 mmol/L; Blood Urea Nitrogen 10 mg/dL (7-17); Calcium 10.3 mg/dL (8.4-10.2); Carbon Dioxide 22 mmol/L (22-30); Chloride 106 mmol/L (98-107); Glucose 95 mg/dL (74-99); Lipase 103 U/L (23-300); Sodium 144 mmol/L (137-145); Total Bilirubin 0.5 mg/dL (0.2-1.3); Total Protein 8.9 g/dL (6.3-8.2)
[2017-09-01 19:47] LABS: Appearance,Urine Cloudy (Clear); Bilirubin,Urine Negative (Negative); Blood,Urine Small (Negative); Color,Urine Dark Brown; Glucose,Urine (UA) Negative (Negative); Ketones,Urine Negative (Negative); Leukocyte Esterase,Urine Large (Negative); Mucus,Urine Rare /hpf; Nitrite,Urine Positive (Negative); PH, Urine 6.5 (5.0-8.0); Protein,Urine 1+ (Negative); RBC,Urine 44 /hpf (0-5); Specific Gravity,Urine 1.016 (1.001-1.035); Squamous Epithelial Cell,Urine 1 /hpf (0-4); WBC,Urine >182 /hpf (0-5)
[2017-09-01] MEDS ORDERED: LEVOFLOXACIN 750 MG TAB PO STA (21:21)
[2017-09-01] MEDS ORDERED: fentaNYL (PF) 50 MCG/ML 2 ML AMP IVP ONE (21:23)
[2017-09-01] MEDS ORDERED: PHENAZOPYRIDINE 200 MG TAB PO STA (21:23)
--- NOTE | 2017-09-01 21:31 | US ---
EXAMINATION TYPE: US bladder DATE OF EXAM: 09/01/2017 COMPARISON: NONE CLINICAL HISTORY: Pain. EXAM MEASUREMENTS: Post Void Residual Volume: 4.9 mL Color Doppler performed to assess ureteral jets. Bilateral Jets seen: Yes Normal Post Void Residual (less than 50ml): Yes IMPRESSION: Normal bladder ultrasound exam. Normal emptying.
--- NOTE | 2017-09-01 21:33 | US ---
EXAMINATION TYPE: US transvaginal DATE OF EXAM: 09/01/2017 COMPARISON: NONE CLINICAL HISTORY: Pain. Partial hysterectomy x 9 weeks ago. TECHNIQUE: Transvaginal (TV). EXAM MEASUREMENTS: Right Ovary: 2.2 x 1.4 x 1.7 cm Left Ovary: 2.3 x 1.7 x 2.3 cm 1. Uterus: Surgically absent 2. Endometrium: Surgically absent 3. Right Ovary: wnl 4. Left Ovary: wnl Spectral, color and waveform doppler imaging shows good arterial and venous flow within the ovaries ; there is no evidence for ovarian torsion. 5. Bilateral Adnexa: wnl 6. Posterior cul-de-sac: wnl IMPRESSION: No evidence of ovarian torsion or mass. Hysterectomy noted.
[2017-09-01] MEDS ORDERED: ONDANSETRON 4 MG/2 ML VIAL IVP STA (21:37)
--- NOTE | 2017-09-01 21:46 | US ---
EXAMINATION TYPE: US abdomen complete DATE OF EXAM: 09/01/2017 COMPARISON: NONE CLINICAL HISTORY: Pain. Pain hx of kidney stones UTI EXAM MEASUREMENTS: Liver Length: 16 cm Gallbladder Wall: 0.3 cm CBD: 0.4 cm Spleen: 10.7 cm Right Kidney: 8.9 x 3.8 x 4.5 cm Left Kidney: 9.4 x 5.0 x 4.1 cm Pancreas: Tail obscured by overlying bowel gas Liver: wnl Gallbladder: wnl Evidence for sonographic Streeter's sign: No CBD: wnl Spleen: wnl Right Kidney: No hydronephrosis or masses seen Left Kidney: No hydronephrosis or masses seen Upper IVC: wnl Abd Aorta: wnl Conclusion Negative complete abdominal sonogram. No gallstones or dilated ducts. No evidence of renal obstructio n.
[2017-09-01 22:56] VITALS: BP 133/65; PULSE 84; TEMP 98.2
== END 2017-09-01 22:56 | disposition home or self-care (01) ==
LOC: EC 18:43
DX: N39.0 Urinary tract infection, site not specified (principal); Z88.0 Allergy status to penicillin; Z88.1 Allergy status to other antibiotic agents; Z88.2 Allergy status to sulfonamides; Z88.5 Allergy status to narcotic agent; Z87.442 Personal history of urinary calculi
CPT/HCPCS: 99284; 96374; 96375; 96361 ×3; 36415; 80053; 83690; 85025; 81001; 87086; 93975; 76700; 76830; 76857; J2405; J3010; 87077; 87186

== ENCOUNTER 2017-10-09 19:39 | Emergency (ER) | payer BC ==
[2017-10-09 20:00] VITALS: RESP 18
[2017-10-09] MEDS ORDERED: SODIUM CHLORIDE 0.9% 1,000 ML IV STA (20:02)
[2017-10-09 20:16] LABS: Basophils % (A) 0 %; Eosinophils # (A) 0.2 k/uL (0-0.7); Eosinophils % (A) 2 %; HGB 14.6 gm/dL (11.4-16.0); Lymphocytes # (A) 1.9 k/uL (1.0-4.8); Lymphocytes % (A) 17 %; MCH 30.9 pg (25.0-35.0); MCHC 34.8 g/dL (31.0-37.0); MCV 88.8 fL (80.0-100.0); Mean Platelet Volume 6.2; Monocytes # (A) 0.3 k/uL (0-1.0); Monocytes % (A) 2 %; Neutrophils # (A) 8.7 k/uL (1.3-7.7); Neutrophils % (A) 78 %; Platelet Count 385 k/uL (150-450); RBC 4.73 m/uL (3.80-5.40); RDW 12.7 % (11.5-15.5); WBC 11.2 k/uL (3.8-10.6)
[2017-10-09 20:28] LABS: Appearance,Urine Clear (Clear); Bilirubin,Urine Negative (Negative); Blood,Urine Negative (Negative); Color,Urine Light Yellow; Glucose,Urine (UA) Negative (Negative); Ketones,Urine Negative (Negative); Leukocyte Esterase,Urine Negative (Negative); Nitrite,Urine Negative (Negative); PH, Urine 7.5 (5.0-8.0); Protein,Urine Negative (Negative); Specific Gravity,Urine 1.016 (1.001-1.035); Urobilinogen,Urine <2.0 mg/dL (<2.0)
[2017-10-09 20:29] LABS: ALT 29 U/L (9-52); AST 18 U/L (14-36); Alkaline Phosphatase 65 U/L (38-126); Amylase 56 U/L (30-110); Anion Gap 14 mmol/L; Blood Urea Nitrogen 12 mg/dL (7-17); Calcium 10.2 mg/dL (8.4-10.2); Carbon Dioxide 22 mmol/L (22-30); Chloride 104 mmol/L (98-107); Glucose 92 mg/dL (74-99); Lipase 72 U/L (23-300); Potassium 4.3 mmol/L (3.5-5.1); Sodium 140 mmol/L (137-145); Total Bilirubin 0.3 mg/dL (0.2-1.3); Total Protein 8.4 g/dL (6.3-8.2)
[2017-10-09] MEDS ORDERED: MORPHINE SULFATE 2 MG/ML SYRINGE IVP STA (20:50)
[2017-10-09] MEDS ORDERED: ONDANSETRON 4 MG/2 ML VIAL IVP STA (20:50)
[2017-10-09] MEDS ORDERED: KETOROLAC 30 MG/ML 1 ML VIAL IVP STA (20:50)
[2017-10-09] MEDS ORDERED: diphenhydrAMINE 50 MG/ML 1 ML VIAL IVP STA (20:51)
[2017-10-09] MEDS ORDERED: FAMOTIDINE 20 MG/2 ML VIAL IV STA (20:52)
--- NOTE | 2017-10-09 21:50 | ED ---
Abdominal Pain HPI - General Chief Complaint: Abdominal Pain Stated Complaint: kidney problems Time Seen by Provider: 10/09/17 20:02 Source: patient, RN notes reviewed, old records reviewed Mode of arrival: ambulatory Limitations: no limitations - History of Present Illness Initial Comments: Patient is a 19-year-old female presents emergency room tingling of left flank pain for the past 2 days for just like some epigastric discomfort. Patient states that she was sent here because [facility] and states that she's been feeling that she's having difficulty with urinating. Patient's had history of kidney stones the past. States is painful similar to previous kidney stones. Patient does appear in significant discomfort. A few episodes of vomiting and nausea. No diarrhea. - Related Data Home Medications Medication Instructions Recorded Confirmed Ibuprofen [Motrin Ib] 800 mg PO Q6H PRN 09/01/17 10/09/17 Acetaminophen [Tylenol] 650 mg PO Q6H PRN 10/09/17 10/09/17 Previous Rx's Medication Instructions Recorded HYDROcodone/APAP 5-325MG [[place] 1 tab PO Q6HR PRN #15 tab 10/09/17 5-325] Ondansetron Odt [Zofran Odt] 4 mg PO Q8HR PRN #12 tab 10/09/17 Allergies Allergy/AdvReac Type Severity Reaction Status Date / Time azithromycin Allergy Rash/Hives/ Verified 10/09/17 20:08 Dyspnea Cephalosporins Allergy Rash/Hives Verified 10/09/17 20:08 codeine phosphate Allergy Rash/Hives Verified 10/09/17 20:08 [From Tylenol-Codeine #3] doxycycline Allergy Rash/Hives Verified 10/09/17 20:08 ketorolac [From Toradol] Allergy Rash/Hives Verified 10/09/17 20:08 metoclopramide HCl Allergy Rash/Hives Verified 10/09/17 20:08 [From Reglan] morphine Allergy Rash/Hives Verified 10/09/17 20:08 Penicillins Allergy Rash/Hives Verified 10/09/17 20:08 Sulfa (Sulfonamide Allergy Rash/Hives Verified 10/09/17 20:08 Antibiotics) tramadol Allergy Rash/Hives Verified 10/09/17 20:08 Review of Systems ROS Statement: Those systems with pertinent positive or pertinent negative responses have been documented in the HPI. ROS Other: All systems not noted in ROS Statement are negative. Past Medical History Past Medical History: No Reported History Additional Past Medical History / Comment(s): Patient with history of recurrent kidney stones, urinary tract and kidney infections. States "has what feels like heart cramps on occasion since she was 6 yrs old." Current issues with irregular menstrual bleeding, abd pain and endometriosis. [place] 2013 History of Any Multi-Drug Resistant Organisms: None Reported Past Surgical History: Section, Hysterectomy, Tubal Ligation Additional Past Surgical History / Comment(s): Hx lithotripsies with stents x10 , hx PICC Line x 6 months, hx surgery on left wrist. Past Anesthesia/Blood Transfusion Reactions: Previous Problems w/ Anesthesia, Postoperative Nausea & Vomiting (PONV) Additional Past Anesthesia/Blood Transfusion Reaction / Comment(s): Takes awhile to wake up after. Past Psychological History: Anxiety, Depression Smoking Status: Never smoker Past Alcohol Use History: None Reported Past Drug Use History: None Reported - Past Family History Father Family Medical History: Cancer General Exam - General Exam Comments Initial Comments: 19-year-old feel. As per moderate discomfort. Alert Limitations: no limitations Head exam: Present: atraumatic, normocephalic, normal inspection Eye exam: Present: normal appearance, PERRL, EOMI. Absent: scleral icterus, conjunctival injection, periorbital swelling ENT exam: Present: normal exam, mucous membranes moist Neck exam: Present: normal inspection. Absent: tenderness, meningismus, lymphadenopathy Respiratory exam: Present: normal lung sounds bilaterally. Absent: respiratory distress, wheezes, rales, rhonchi, stridor Cardiovascular Exam: Present: regular rate, normal rhythm, normal heart sounds. Absent: systolic murmur, diastolic murmur, rubs, gallop, clicks GI/Abdominal exam: Present: soft, normal bowel sounds. Absent: distended, tenderness, guarding, rebound, rigid Course Vital Signs 10/09/17 10/09/17 10/09/17 19:57 21:33 23:10 Temperature 98.3 F Pulse Rate 96 90 95 Respiratory 18 18 18 Rate Blood Pressure 142/86 113/71 125/63 O2 Sat by Pulse 98 100 97 Oximetry Medical Decision Making - Lab Data Result diagrams: 10/09/17 20:00 10/09/17 20:00 Lab Results 10/09/17 10/09/17 10/09/17 Range/Units 20:00 20:00 20:08 WBC 11.2 H (3.8-10.6) k/uL RBC 4.73 (3.80-5.40) m/uL Hgb 14.6 (11.4-16.0) gm/dL Hct 42.0 (34.0-46.0) % MCV 88.8 (80.0-100.0) fL MCH 30.9 (25.0-35.0) pg MCHC 34.8 (31.0-37.0) g/dL RDW 12.7 (11.5-15.5) % Plt Count 385 (150-450) k/uL Neutrophils % 78 % Lymphocytes % 17 % Monocytes % 2 % Eosinophils % 2 % Basophils % 0 % Neutrophils # 8.7 H (1.3-7.7) k/uL Lymphocytes # 1.9 (1.0-4.8) k/uL Monocytes # 0.3 (0-1.0) k/uL Eosinophils # 0.2 (0-0.7) k/uL Basophils # 0.0 (0-0.2) k/uL Sodium 140 (137-145) mmol/L Potassium 4.3 (3.5-5.1) mmol/L Chloride 104 (98-107) mmol/L Carbon Dioxide 22 (22-30) mmol/L Anion Gap 14 mmol/L BUN 12 (7-17) mg/dL Creatinine 0.56 (0.52-1.04) mg/dL Est GFR (CKD-EPI)AfAm >90 (>60 ml/min/1.73 sqM) Est GFR (CKD-EPI)NonAf >90 (>60 ml/min/1.73 sqM) Glucose 92 (74-99) mg/dL Calcium 10.2 (8.4-10.2) mg/dL Total Bilirubin 0.3 (0.2-1.3) mg/dL AST 18 (14-36) U/L ALT 29 (9-52) U/L Alkaline Phosphatase 65 (38-126) U/L Total Protein 8.4 H (6.3-8.2) g/dL Albumin 5.0 (3.5-5.0) g/dL Amylase 56 (30-110) U/L Lipase 72 (23-300) U/L Urine Color Urine Appearance (Clear) Urine pH (5.0-8.0) Ur Specific [place] (1.001-1.035) Urine Protein (Negative) Urine Glucose (UA) (Negative) Urine Ketones (Negative) Urine Blood (Negative) Urine Nitrite (Negative) Urine Bilirubin (Negative) Urine Urobilinogen (<2.0) mg/dL Ur Leukocyte Esterase (Negative) Urine HCG, Qual Not Detected (Not Detectd) 10/09/17 Range/Units 20:08 WBC (3.8-10.6) k/uL RBC (3.80-5.40) m/uL Hgb (11.4-16.0) gm/dL Hct (34.0-46.0) % MCV (80.0-100.0) fL MCH (25.0-35.0) pg MCHC (31.0-37.0) g/dL RDW (11.5-15.5) % Plt Count (150-450) k/uL Neutrophils % % Lymphocytes % % Monocytes % % Eosinophils % % Basophils % % Neutrophils # (1.3-7.7) k/uL Lymphocytes # (1.0-4.8) k/uL Monocytes # (0-1.0) k/uL Eosinophils # (0-0.7) k/uL Basophils # (0-0.2) k/uL Sodium (137-145) mmol/L Potassium (3.5-5.1) mmol/L Chloride (98-107) mmol/L Carbon Dioxide (22-30) mmol/L Anion Gap mmol/L BUN (7-17) mg/dL Creatinine (0.52-1.04) mg/dL Est GFR (CKD-EPI)AfAm (>60 ml/min/1.73 sqM) Est GFR (CKD-EPI)NonAf (>60 ml/min/1.73 sqM) Glucose (74-99) mg/dL Calcium (8.4-10.2) mg/dL Total Bilirubin (0.2-1.3) mg/dL AST (14-36) U/L ALT (9-52) U/L Alkaline Phosphatase (38-126) U/L Total Protein (6.3-8.2) g/dL Albumin (3.5-5.0) g/dL Amylase (30-110) U/L Lipase (23-300) U/L Urine Color Light Yellow Urine Appearance Clear (Clear) Urine pH 7.5 (5.0-8.0) Ur Specific [place] 1.016 (1.001-1.035) Urine Protein Negative (Negative) Urine Glucose (UA) Negative (Negative) Urine Ketones Negative (Negative) Urine Blood Negative (Negative) Urine Nitrite Negative (Negative) Urine Bilirubin Negative (Negative) Urine Urobilinogen <2.0 (<2.0) mg/dL Ur Leukocyte Esterase Negative (Negative) Urine HCG, Qual (Not Detectd) Disposition Clinical Impression: Flank pain, Epigastric abdominal pain, Renal stones Disposition: HOME SELF-CARE Condition: Good Instructions: Flank Pain (ED), Epigastric Pain (ED) Additional Instructions: Patient advised to follow-up with primary care provider. Take the pain medicine and nausea medicine as needed. Patient should follow-up with your urologist. sHe may also need a HIDA scan to further evaluate for gallbladder issues. Recommended clear liquid diet for the next 1-2 days. Prescriptions: HYDROcodone/APAP 5-325MG [[place] 5-325] 1 tab PO Q6HR PRN #15 tab PRN Reason: Pain Ondansetron Odt [Zofran Odt] 4 mg PO Q8HR PRN #12 tab PRN Reason: Nausea Is patient prescribed a controlled substance at d/c from ED?: Yes When asked, does pt state using other controlled substances?: No If prescribed controlled substance>3 days was MAPS reviewed?: Prescribed <3 Days If opioid is for acute pain is fill amount 7 days or less?: No If Rx opioid, was Start Talking consent form obtained?: No Referrals: Scot Smith MD [Primary Care Provider] - 1-2 days Time of Disposition: 23:32
--- NOTE | 2017-10-09 22:19 | CT ---
EXAMINATION TYPE: CT abdomen pelvis wo con DATE OF EXAM: 10/09/2017 COMPARISON: 08/22/2017 HISTORY: Bilateral flank and epigastric pain. CT DLP: 319.3 mGycm Automated exposure control for dose reduction was used. TECHNIQUE: Helical acquisition of images was performed from the lung bases through the pelvis. FINDINGS: LUNG BASES: No significant abnormality is appreciated. LIVER/GB: No significant abnormality is appreciated. PANCREAS: No significant abnormality is seen. SPLEEN: No significant abnormality is seen. ADRENALS: No significant abnormality is seen. KIDNEYS AND URETERS, BLADDER: There are a few scattered 1 - 3 mm obstructing bilateral renal calcific ations, greater on the left. There is no hydronephrosis. No calcifications in the ureters or the blad rod[place] FREE AIR: No free air is visualized RETROPERITONEAL ADENOPATHY: None visualized REPRODUCTIVE ORGANS: No significant abnormality is seen. The left ovary measures approximately 4 cm g reatest dimension and the right ovary measures 2 cm greatest dimension, likely physiologic changes. N o cul-de-sac fluid. PELVIC ADENOPATHY: None visualized. OSSEOUS STRUCTURES: No significant abnormality is seen. BOWEL: No significant abnormality is seen. Appendix and terminal ileum have normal appearance. OTHER: No miscellaneous findings. IMPRESSION: NO ACUTE PROCESS.
[2017-10-09 23:11] VITALS: BP 125/63; PULSE 95
[2017-10-09 23:49] VITALS: TEMP 98.7
== END 2017-10-09 23:48 | disposition home or self-care (01) ==
LOC: EC 19:39
DX: N20.0 Calculus of kidney (principal); Z98.51 Tubal ligation status; Z95.9 Presence of cardiac and vascular implant and graft, unspecified; Z88.1 Allergy status to other antibiotic agents; Z88.5 Allergy status to narcotic agent; Z88.6 Allergy status to analgesic agent; Z88.8 Allergy status to other drugs, medicaments and biological substances; Z88.0 Allergy status to penicillin; Z88.2 Allergy status to sulfonamides
CPT/HCPCS: 36415; 80053; 82150; 83690; 85025; 81003; 81025; 74176; 99285; 96374; 96375 ×4; 96361; J1200; J2405; J1885; J2270

== ENCOUNTER 2017-10-15 16:05 | Emergency (ER) | payer BC ==
[2017-10-15] MEDS ORDERED: FAMOTIDINE 20 MG/2 ML VIAL IV STA (16:49)
[2017-10-15] MEDS ORDERED: SODIUM CHLORIDE 0.9% 1,000 ML IV STA (16:49)
[2017-10-15] MEDS ORDERED: MORPHINE SULFATE 2 MG/ML SYRINGE IVP STA ×2 (16:49→19:30)
[2017-10-15] MEDS ORDERED: diphenhydrAMINE 50 MG/ML 1 ML VIAL IVP STA (16:49)
[2017-10-15] MEDS ORDERED: KETOROLAC 30 MG/ML 1 ML VIAL IVP STA (16:51)
--- NOTE | 2017-10-15 16:53 | ED ---
General Adult HPI - General Chief complaint: Abdominal Pain Stated complaint: kidney pain Time Seen by Provider: 10/15/17 16:41 Source: patient, RN notes reviewed Mode of arrival: ambulatory Limitations: no limitations - History of Present Illness Initial comments: Patient is a 27-year-old female presented to the emergency room today with a chief complaint of kidney stone. Patient does admit that she was diagnosed with kidney stone last time that she was seen here in the emergency room. She does admit that she's had increased difficult time urinating. She states that she is able to go to the bathroom but then this and she goes feels like she has to go again. Patient does admit to pain locally to the left and right-sided lower back. She states pain wrapping around to the front. States worse on the left than the right. Does admit some symptoms of nausea. Patient denies any other complete associated symptoms. Patient denies any recent fever, chills, shortness of breath, chest pain, numbness or tingling, headaches or visual changes, or any other complaints. - Related Data Home Medications Medication Instructions Recorded Confirmed Ibuprofen [Motrin Ib] 800 mg PO Q6H PRN 09/01/17 10/15/17 Acetaminophen [Tylenol] 650 mg PO Q6H PRN 10/09/17 10/15/17 Previous Rx's Medication Instructions Recorded Phenazopyridine [Pyridium] 100 mg PO TID 3 Days day 10/15/17 Tamsulosin [Flomax] 0.4 mg PO DAILY #10 cap 10/15/17 Allergies Allergy/AdvReac Type Severity Reaction Status Date / Time azithromycin Allergy Rash/Hives/ Verified 10/15/17 16:45 Dyspnea Cephalosporins Allergy Rash/Hives Verified 10/15/17 16:45 codeine phosphate Allergy Rash/Hives Verified 10/15/17 16:45 [From Tylenol-Codeine #3] doxycycline Allergy Rash/Hives Verified 10/15/17 16:45 ketorolac [From Toradol] Allergy Rash/Hives Verified 10/15/17 16:57 metoclopramide HCl Allergy Rash/Hives Verified 10/15/17 16:45 [From Reglan] morphine Allergy Rash/Hives Verified 10/15/17 16:57 Penicillins Allergy Rash/Hives Verified 10/15/17 16:45 Sulfa (Sulfonamide Allergy Rash/Hives Verified 10/15/17 16:45 Antibiotics) tramadol Allergy Rash/Hives Verified 10/15/17 16:45 Review of Systems ROS Statement: Those systems with pertinent positive or pertinent negative responses have been documented in the HPI. ROS Other: All systems not noted in ROS Statement are negative. Past Medical History Past Medical History: No Reported History Additional Past Medical History / Comment(s): Patient with history of recurrent kidney stones, urinary tract and kidney infections. States "has what feels like heart cramps on occasion since she was 6 yrs old." Current issues with irregular menstrual bleeding, abd pain and endometriosis. [place] 2013 History of Any Multi-Drug Resistant Organisms: None Reported Past Surgical History: Section, Hysterectomy, Tubal Ligation Additional Past Surgical History / Comment(s): Hx lithotripsies with stents x10 , hx PICC Line x 6 months, hx surgery on left wrist. Past Anesthesia/Blood Transfusion Reactions: Previous Problems w/ Anesthesia, Postoperative Nausea & Vomiting (PONV) Additional Past Anesthesia/Blood Transfusion Reaction / Comment(s): Takes awhile to wake up after. Past Psychological History: Anxiety, Depression Smoking Status: Never smoker Past Alcohol Use History: None Reported Past Drug Use History: None Reported - Past Family History Father Family Medical History: Cancer General Exam - General Exam Comments Initial Comments: General: The patient is awake and alert, in mild distress. Eye: Pupils are equal, round and reactive to light, extra-ocular movements are intact. No nystagmus. There is normal conjunctiva bilaterally. No signs of icterus. Ears, nose, mouth and throat: There are moist mucous membranes and no oral lesions. Neck: The neck is supple, there is no tenderness or JVD. Cardiovascular: There is a regular rate and rhythm. No murmur, rub or gallop is appreciated. Respiratory: Lungs are clear to auscultation, respirations are non-labored, breath sounds are equal. No wheezes, stridor, rales, or rhonchi. Gastrointestinal: Abdominal soft on palpation. Patient does have mild tenderness both left and right lower quadrant. Mildly tender in the CVAs both on left and right. No rebound tenderness. No guarding. Musculoskeletal: Normal ROM, no tenderness. Strength 5/5. Sensation intact. Neurological: A&O x 3. CN II-XII intact, There are no obvious motor or sensory deficits. Coordination appears grossly intact. Speech is normal. Skin: Skin is warm and dry and no rashes or lesions are noted. Psychiatric: Cooperative, appropriate mood & affect, normal judgment. Limitations: no limitations Course Vital Signs 10/15/17 10/15/17 10/15/17 16:37 18:02 19:13 Temperature 98.7 F Pulse Rate 111 H 90 85 Respiratory 18 19 19 Rate Blood Pressure 108/75 119/71 106/59 O2 Sat by Pulse 98 100 100 Oximetry Medical Decision Making - Medical Decision Making Patient's labs been reviewed does show a few white cells in the urine. She does admit to increased urinary frequency. She was placed on antibiotic to cover for cystitis along with Pyridium for the symptoms. Patient requesting more pain medication go home with. She states she was discharged before. Advised her that she needs follow-up the family doctor or a specialist for further opiate pain medication. Patient's ultrasound reviewed and is unremarkable. X-ray has also been reviewed. Patient advised follow-up family physician and urologist over the next 2 days. Advised return if any symptoms increase worsen. - Lab Data Result diagrams: 10/15/17 17:30 10/15/17 17:30 Lab Results 10/15/17 10/15/17 10/15/17 Range/Units 17:20 17:20 17:30 WBC (3.8-10.6) k/uL RBC (3.80-5.40) m/uL Hgb (11.4-16.0) gm/dL Hct (34.0-46.0) % MCV (80.0-100.0) fL MCH (25.0-35.0) pg MCHC (31.0-37.0) g/dL RDW (11.5-15.5) % Plt Count (150-450) k/uL Neutrophils % % Lymphocytes % % Monocytes % % Eosinophils % % Basophils % % Neutrophils # (1.3-7.7) k/uL Lymphocytes # (1.0-4.8) k/uL Monocytes # (0-1.0) k/uL Eosinophils # (0-0.7) k/uL Basophils # (0-0.2) k/uL Sodium 143 (137-145) mmol/L Potassium 5.1 (3.5-5.1) mmol/L Chloride 105 (98-107) mmol/L Carbon Dioxide 20 L (22-30) mmol/L Anion Gap 18 mmol/L BUN 11 (7-17) mg/dL Creatinine 0.70 (0.52-1.04) mg/dL Est GFR (CKD-EPI)AfAm >90 (>60 ml/min/1.73 sqM) Est GFR (CKD-EPI)NonAf >90 (>60 ml/min/1.73 sqM) Glucose 85 (74-99) mg/dL Calcium 10.6 H (8.4-10.2) mg/dL Total Bilirubin 0.6 (0.2-1.3) mg/dL AST 21 (14-36) U/L ALT 28 (9-52) U/L Alkaline Phosphatase 77 (38-126) U/L Total Protein 9.2 H (6.3-8.2) g/dL Albumin 5.2 H (3.5-5.0) g/dL Amylase 55 (30-110) U/L Lipase 63 (23-300) U/L Urine Color Yellow Urine Appearance Cloudy H (Clear) Urine pH 7.5 (5.0-8.0) Ur Specific [place] 1.029 (1.001-1.035) Urine Protein 1+ H (Negative) Urine Glucose (UA) Negative (Negative) Urine Ketones 1+ H (Negative) Urine Blood Trace H (Negative) Urine Nitrite Negative (Negative) Urine Bilirubin Negative (Negative) Urine Urobilinogen 2.0 (<2.0) mg/dL Ur Leukocyte Esterase Small H (Negative) Urine RBC 4 (0-5) /hpf Urine WBC 6 H (0-5) /hpf Ur Squamous Epith Cells 10 H (0-4) /hpf Urine Mucus Occasional H (None) /hpf Urine HCG, Qual Not Detected (Not Detectd) 10/15/17 Range/Units 17:30 WBC 10.9 H (3.8-10.6) k/uL RBC 5.23 (3.80-5.40) m/uL Hgb 15.8 (11.4-16.0) gm/dL Hct 46.4 H (34.0-46.0) % MCV 88.9 (80.0-100.0) fL MCH 30.2 (25.0-35.0) pg MCHC 34.0 (31.0-37.0) g/dL RDW 12.6 (11.5-15.5) % Plt Count 407 (150-450) k/uL Neutrophils % 81 % Lymphocytes % 14 % Monocytes % 3 % Eosinophils % 1 % Basophils % 0 % Neutrophils # 8.9 H (1.3-7.7) k/uL Lymphocytes # 1.5 (1.0-4.8) k/uL Monocytes # 0.3 (0-1.0) k/uL Eosinophils # 0.1 (0-0.7) k/uL Basophils # 0.0 (0-0.2) k/uL Sodium (137-145) mmol/L Potassium (3.5-5.1) mmol/L Chloride (98-107) mmol/L Carbon Dioxide (22-30) mmol/L Anion Gap mmol/L BUN (7-17) mg/dL Creatinine (0.52-1.04) mg/dL Est GFR (CKD-EPI)AfAm (>60 ml/min/1.73 sqM) Est GFR (CKD-EPI)NonAf (>60 ml/min/1.73 sqM) Glucose (74-99) mg/dL Calcium (8.4-10.2) mg/dL Total Bilirubin (0.2-1.3) mg/dL AST (14-36) U/L ALT (9-52) U/L Alkaline Phosphatase (38-126) U/L Total Protein (6.3-8.2) g/dL Albumin (3.5-5.0) g/dL Amylase (30-110) U/L Lipase (23-300) U/L Urine Color Urine Appearance (Clear) Urine pH (5.0-8.0) Ur Specific [place] (1.001-1.035) Urine Protein (Negative) Urine Glucose (UA) (Negative) Urine Ketones (Negative) Urine Blood (Negative) Urine Nitrite (Negative) Urine Bilirubin (Negative) Urine Urobilinogen (<2.0) mg/dL Ur Leukocyte Esterase (Negative) Urine RBC (0-5) /hpf Urine WBC (0-5) /hpf Ur Squamous Epith Cells (0-4) /hpf Urine Mucus (None) /hpf Urine HCG, Qual (Not Detectd) Disposition Clinical Impression: Flank pain Disposition: HOME SELF-CARE Condition: Good Instructions: Abdominal Pain (ED) Additional Instructions: Please use medication as discussed. Please follow-up with urology/family doctor in the next 2 days of symptoms have not improved. Please return to emergency room if the symptoms increase or worsen or for any other concerns. Prescriptions: Phenazopyridine [Pyridium] 100 mg PO TID 3 Days day Tamsulosin [Flomax] 0.4 mg PO DAILY #10 cap Is patient prescribed a controlled substance at d/c from ED?: No Referrals: Scot Smith MD [Primary Care Provider] - 1-2 days Kang Dumont MD [STAFF PHYSICIAN] - 1-2 days Time of Disposition: 19:33
[2017-10-15 17:35] LABS: Appearance,Urine Cloudy (Clear); Bilirubin,Urine Negative (Negative); Blood,Urine Trace (Negative); Color,Urine Yellow; Glucose,Urine (UA) Negative (Negative); Ketones,Urine 1+ (Negative); Leukocyte Esterase,Urine Small (Negative); Mucus,Urine Occasional /hpf; Nitrite,Urine Negative (Negative); PH, Urine 7.5 (5.0-8.0); Protein,Urine 1+ (Negative); RBC,Urine 4 /hpf (0-5); Specific Gravity,Urine 1.029 (1.001-1.035); Squamous Epithelial Cell,Urine 10 /hpf (0-4); WBC,Urine 6 /hpf (0-5)
[2017-10-15 18:03] VITALS: RESP 19
--- NOTE | 2017-10-15 18:46 | US ---
EXAMINATION TYPE: US kidneys/renal and bladder DATE OF EXAM: 10/15/2017 COMPARISON: NONE CLINICAL HISTORY: Pain. Flank pain bilaterally hx of kidney stones. EXAM MEASUREMENTS: Right Kidney: 8.0 x 3.5 x 4.1 cm Left Kidney: 9.3 x 4.7 x 4.5 cm Right Kidney: No hydronephrosis or masses seen Left Kidney: No hydronephrosis or masses seen Bladder: Anechoic not fully distended. There is no evidence for hydronephrosis at this point in time. No nephrolithiasis is seen. No masses are identified. The urinary bladder is anechoic. IMPRESSION: No acute process.
[2017-10-15 18:56] LABS: Basophils % (A) 0 %; Eosinophils # (A) 0.1 k/uL (0-0.7); Eosinophils % (A) 1 %; HCT 46.4 % (34.0-46.0); HGB 15.8 gm/dL (11.4-16.0); Lymphocytes # (A) 1.5 k/uL (1.0-4.8); Lymphocytes % (A) 14 %; MCH 30.2 pg (25.0-35.0); MCV 88.9 fL (80.0-100.0); Mean Platelet Volume 6.9; Monocytes # (A) 0.3 k/uL (0-1.0); Monocytes % (A) 3 %; Neutrophils # (A) 8.9 k/uL (1.3-7.7); Neutrophils % (A) 81 %; Platelet Count 407 k/uL (150-450); RBC 5.23 m/uL (3.80-5.40); RDW 12.6 % (11.5-15.5); WBC 10.9 k/uL (3.8-10.6)
[2017-10-15 19:09] LABS: ALT 28 U/L (9-52); AST 21 U/L (14-36); Albumin 5.2 g/dL (3.5-5.0); Alkaline Phosphatase 77 U/L (38-126); Amylase 55 U/L (30-110); Anion Gap 18 mmol/L; Blood Urea Nitrogen 11 mg/dL (7-17); Calcium 10.6 mg/dL (8.4-10.2); Carbon Dioxide 20 mmol/L (22-30); Chloride 105 mmol/L (98-107); Glucose 85 mg/dL (74-99); Lipase 63 U/L (23-300); Potassium 5.1 mmol/L (3.5-5.1); Sodium 143 mmol/L (137-145); Total Bilirubin 0.6 mg/dL (0.2-1.3); Total Protein 9.2 g/dL (6.3-8.2)
--- NOTE | 2017-10-15 19:46 | XR ---
EXAMINATION TYPE: XR KUB 2 views DATE OF EXAM: 10/15/2017 COMPARISON: 11/09/2016 HISTORY: Left flank pain TECHNIQUE: 2 upright views FINDINGS: The visualized lower lungs and pleural spaces are negative. There is no pneumoperitoneum or pneumatosis. The bowel gas pattern is normal. No acute skeletal or soft tissue findings. No calcifications are evident over the renal shadows or the expected course of the ureters or urinary bladder. IMPRESSION: Negative examination.
[2017-10-15 20:02] VITALS: BP 123/72; PULSE 93; TEMP 96.9
== END 2017-10-15 20:02 | disposition home or self-care (01) ==
LOC: EC 16:05
DX: R10.9 Unspecified abdominal pain (principal); M54.5 Low back pain; R11.0 Nausea; R35.0 Frequency of micturition; Z98.51 Tubal ligation status; Z87.442 Personal history of urinary calculi; Z88.1 Allergy status to other antibiotic agents; Z88.5 Allergy status to narcotic agent; Z88.6 Allergy status to analgesic agent; Z88.8 Allergy status to other drugs, medicaments and biological substances; Z88.0 Allergy status to penicillin; Z88.2 Allergy status to sulfonamides
CPT/HCPCS: 36415; 80053; 82150; 83690; 85025; 81001; 81025; 87086; 74018; 76770; 99284; 96374; 96375 ×3; 96376; 96361; J1200; J1885; J2270

== ENCOUNTER 2017-12-01 19:15 | Emergency (ER) | payer BC ==
[2017-12-01 19:40] VITALS: TEMP 98.5
[2017-12-01 19:59] LABS: Appearance,Urine Turbid (Clear); Bacteria,Urine Occasional /hpf; Bilirubin,Urine Negative (Negative); Blood,Urine Small (Negative); Calcium Oxalate Crystals,Urine Few /hpf; Color,Urine Yellow; Glucose,Urine (UA) Negative (Negative); Ketones,Urine Trace (Negative); Leukocyte Esterase,Urine Small (Negative); Mucus,Urine Many /hpf; Nitrite,Urine Negative (Negative); Protein,Urine 1+ (Negative); Squamous Epithelial Cell,Urine 44 /hpf (0-4); WBC,Urine 14 /hpf (0-5)
[2017-12-01] MEDS ORDERED: ONDANSETRON 4 MG/2 ML VIAL IVP STA (20:12)
[2017-12-01] MEDS ORDERED: SODIUM CHLORIDE 0.9% 1,000 ML IV STA (20:12)
[2017-12-01] MEDS ORDERED: KETOROLAC 30 MG/ML 1 ML VIAL IVP STA (20:13)
[2017-12-01] MEDS ORDERED: diphenhydrAMINE 50 MG/ML 1 ML VIAL IVP STA (20:13)
--- NOTE | 2017-12-01 20:17 | ED ---
General Adult HPI - General Chief complaint: Urogenital Stated complaint: Vomiting Time Seen by Provider: 12/01/17 20:04 Source: patient, RN notes reviewed, old records reviewed Mode of arrival: wheelchair Limitations: physical limitation - History of Present Illness Initial comments: Patient's 27-year-old female seen in the past medical history for kidney stones , presenting to the emergency room today with a chief complaint of bilateral lower flank pain radiating around to the front of the lower abdomen over her hips 2 days. Patient states that symptoms are somewhat consistent with kidney stones that she's had in the past. She states seems to be a sharp pain that she 's feeling in the front which is different. Patient admits to nausea vomiting. Denies any other complaints or symptoms at this time. Patient denies any recent fever, chills, shortness of breath, chest pain, numbness or tingling, constipation or diarrhea, headaches or visual changes, or any other complaints. - Related Data Home Medications Medication Instructions Recorded Confirmed Ibuprofen [Motrin Ib] 800 mg PO Q6H PRN 09/01/17 10/15/17 Acetaminophen [Tylenol] 650 mg PO Q6H PRN 10/09/17 10/15/17 Previous Rx's Medication Instructions Recorded Phenazopyridine [Pyridium] 100 mg PO TID 3 Days day 10/15/17 Tamsulosin [Flomax] 0.4 mg PO DAILY #10 cap 10/15/17 Nitrofurantoin Monohyd/M-Cryst 100 mg PO Q12HR #14 cap 12/01/17 [Macrobid] Phenazopyridine [Pyridium] 100 mg PO TID 3 Days day 12/01/17 Tamsulosin [Flomax] 0.4 mg PO DAILY #10 cap 12/01/17 Allergies Allergy/AdvReac Type Severity Reaction Status Date / Time azithromycin Allergy Rash/Hives/ Verified 12/01/17 19:40 Dyspnea Cephalosporins Allergy Rash/Hives Verified 12/01/17 19:40 codeine phosphate Allergy Rash/Hives Verified 12/01/17 19:40 [From Tylenol-Codeine #3] doxycycline Allergy Rash/Hives Verified 12/01/17 19:40 ketorolac [From Toradol] Allergy Rash/Hives Verified 12/01/17 19:40 metoclopramide HCl Allergy Rash/Hives Verified 12/01/17 19:40 [From [facility]] morphine Allergy Rash/Hives Verified 12/01/17 19:40 Penicillins Allergy Rash/Hives Verified 12/01/17 19:40 Sulfa (Sulfonamide Allergy Rash/Hives Verified 12/01/17 19:40 Antibiotics) tramadol Allergy Rash/Hives Verified 12/01/17 19:40 Review of Systems ROS Statement: Those systems with pertinent positive or pertinent negative responses have been documented in the HPI. ROS Other: All systems not noted in ROS Statement are negative. Past Medical History Past Medical History: No Reported History Additional Past Medical History / Comment(s): Patient with history of recurrent kidney stones, urinary tract and kidney infections. States "has what feels like heart cramps on occasion since she was 6 yrs old." Current issues with irregular menstrual bleeding, abd pain and endometriosis. miscarrage 2013, History of Any Multi-Drug Resistant Organisms: None Reported Past Surgical History: Section, Hysterectomy, Tubal Ligation Additional Past Surgical History / Comment(s): Hx lithotripsies with stents x10 , hx PICC Line x 6 months, hx surgery on left wrist., Past Anesthesia/Blood Transfusion Reactions: Previous Problems w/ Anesthesia, Postoperative Nausea & Vomiting (PONV) Additional Past Anesthesia/Blood Transfusion Reaction / Comment(s): Takes awhile to wake up after. Past Psychological History: Anxiety, Depression Smoking Status: Never smoker Past Alcohol Use History: None Reported Past Drug Use History: None Reported - Past Family History Father Family Medical History: Cancer General Exam - General Exam Comments Initial Comments: General: The patient is awake and alert, in moderate distress. Eye: Pupils are equal, round and reactive to light, extra-ocular movements are intact. No nystagmus. There is normal conjunctiva bilaterally. No signs of icterus. Ears, nose, mouth and throat: There are moist mucous membranes and no oral lesions. Neck: The neck is supple, there is no tenderness or JVD. Cardiovascular: There is a regular rate and rhythm. No murmur, rub or gallop is appreciated. Respiratory: Lungs are clear to auscultation, respirations are non-labored, breath sounds are equal. No wheezes, stridor, rales, or rhonchi. Gastrointestinal: Had resolved on palpation. Mild tenderness both left and right lower quadrants. No CVA, or rebound tenderness. Musculoskeletal: Normal ROM, no tenderness. Strength 5/5. Sensation intact. Pulses equal bilaterally 2+. Neurological: A&O x 3. CN II-XII intact, There are no obvious motor or sensory deficits. Coordination appears grossly intact. Speech is normal. Skin: Skin is warm and dry and no rashes or lesions are noted. Psychiatric: Cooperative, appropriate mood & affect, normal judgment. Limitations: physical limitation Course Vital Signs 12/01/17 12/01/17 19:35 21:30 Temperature 98.5 F Pulse Rate 100 77 Respiratory 18 20 Rate Blood Pressure 118/79 114/79 O2 Sat by Pulse 98 96 Oximetry Medical Decision Making - Medical Decision Making Patient reexamined at this time does admit to feeling better here in the emergency room after medications. Patient has long history of kidney stones and states this does feel somewhat similar. Patient had multiple CAT scans. Patient had a recent CT in September of this year. Patient states symptoms are consistent with stones. She does admit that there is been pain wrapping around to the front of the abdomen but has improved. Patient has no elevated white count. Her labs been reviewed a urinalysis shows possible contaminated specimen but 14 white cells. Patient's ultrasound showing no acute abnormality. Case discussed in detail with attending physician Dr. Thomas. It was discussed with patient about CT risks versus benefits were discussed. She states she feels couple follow-up the urologist. Patient will be given Flomax, Pyridium, started on antibiotics cover for infection. She is advised follow-up tomorrow returning to the emergency room symptoms increase worsen. - Lab Data Result diagrams: 12/01/17 20:48 12/01/17 20:48 Lab Results 12/01/17 12/01/17 12/01/17 Range/Units 19:30 19:30 20:48 WBC (3.8-10.6) k/uL RBC (3.80-5.40) m/uL Hgb (11.4-16.0) gm/dL Hct (34.0-46.0) % MCV (80.0-100.0) fL MCH (25.0-35.0) pg MCHC (31.0-37.0) g/dL RDW (11.5-15.5) % Plt Count (150-450) k/uL Neutrophils % % Lymphocytes % % Monocytes % % Eosinophils % % Basophils % % Neutrophils # (1.3-7.7) k/uL Lymphocytes # (1.0-4.8) k/uL Monocytes # (0-1.0) k/uL Eosinophils # (0-0.7) k/uL Basophils # (0-0.2) k/uL Sodium 142 (137-145) mmol/L Potassium 4.7 (3.5-5.1) mmol/L Chloride 111 H (98-107) mmol/L Carbon Dioxide 21 L (22-30) mmol/L Anion Gap 10 mmol/L BUN 13 (7-17) mg/dL Creatinine 0.63 (0.52-1.04) mg/dL Est GFR (CKD-EPI)AfAm >90 (>60 ml/min/1.73 sqM) Est GFR (CKD-EPI)NonAf >90 (>60 ml/min/1.73 sqM) Glucose 89 (74-99) mg/dL Calcium 10.1 (8.4-10.2) mg/dL Total Bilirubin 0.4 (0.2-1.3) mg/dL AST 22 (14-36) U/L ALT 25 (9-52) U/L Alkaline Phosphatase 58 (38-126) U/L Total Protein 8.5 H (6.3-8.2) g/dL Albumin 4.9 (3.5-5.0) g/dL Amylase 64 (30-110) U/L Lipase 160 (23-300) U/L Urine Color Yellow Urine Appearance Turbid H (Clear) Urine pH 6.0 (5.0-8.0) Ur Specific [place] 1.030 (1.001-1.035) Urine Protein 1+ H (Negative) Urine Glucose (UA) Negative (Negative) Urine Ketones Trace H (Negative) Urine Blood Small H (Negative) Urine Nitrite Negative (Negative) Urine Bilirubin Negative (Negative) Urine Urobilinogen 2.0 (<2.0) mg/dL Ur Leukocyte Esterase Small H (Negative) Urine WBC 14 H (0-5) /hpf Ur Squamous Epith Cells 44 H (0-4) /hpf Calcium Oxalate Crystal Few H (None) /hpf Urine Bacteria Occasional H (None) /hpf Urine Mucus Many H (None) /hpf Urine HCG, Qual Not Detected (Not Detectd) 12/01/17 Range/Units 20:48 WBC 8.0 (3.8-10.6) k/uL RBC 5.07 (3.80-5.40) m/uL Hgb 15.4 (11.4-16.0) gm/dL Hct 45.2 (34.0-46.0) % MCV 89.1 (80.0-100.0) fL MCH 30.3 (25.0-35.0) pg MCHC 34.0 (31.0-37.0) g/dL RDW 13.2 (11.5-15.5) % Plt Count 328 (150-450) k/uL Neutrophils % 71 % Lymphocytes % 23 % Monocytes % 4 % Eosinophils % 2 % Basophils % 0 % Neutrophils # 5.6 (1.3-7.7) k/uL Lymphocytes # 1.8 (1.0-4.8) k/uL Monocytes # 0.3 (0-1.0) k/uL Eosinophils # 0.1 (0-0.7) k/uL Basophils # 0.0 (0-0.2) k/uL Sodium (137-145) mmol/L Potassium (3.5-5.1) mmol/L Chloride (98-107) mmol/L Carbon Dioxide (22-30) mmol/L Anion Gap mmol/L BUN (7-17) mg/dL Creatinine (0.52-1.04) mg/dL Est GFR (CKD-EPI)AfAm (>60 ml/min/1.73 sqM) Est GFR (CKD-EPI)NonAf (>60 ml/min/1.73 sqM) Glucose (74-99) mg/dL Calcium (8.4-10.2) mg/dL Total Bilirubin (0.2-1.3) mg/dL AST (14-36) U/L ALT (9-52) U/L Alkaline Phosphatase (38-126) U/L Total Protein (6.3-8.2) g/dL Albumin (3.5-5.0) g/dL Amylase (30-110) U/L Lipase (23-300) U/L Urine Color Urine Appearance (Clear) Urine pH (5.0-8.0) Ur Specific [place] (1.001-1.035) Urine Protein (Negative) Urine Glucose (UA) (Negative) Urine Ketones (Negative) Urine Blood (Negative) Urine Nitrite (Negative) Urine Bilirubin (Negative) Urine Urobilinogen (<2.0) mg/dL Ur Leukocyte Esterase (Negative) Urine WBC (0-5) /hpf Ur Squamous Epith Cells (0-4) /hpf Calcium Oxalate Crystal (None) /hpf Urine Bacteria (None) /hpf Urine Mucus (None) /hpf Urine HCG, Qual (Not Detectd) Disposition Clinical Impression: Kidney stones Disposition: HOME SELF-CARE Condition: Good Instructions: Kidney Stones (ED) Additional Instructions: Please use medications as prescribed follow-up urologist over the next 1-2 days return here to emergency room if any symptoms increase worsen. Prescriptions: Nitrofurantoin Monohyd/M-Cryst [Macrobid] 100 mg PO Q12HR #14 cap Phenazopyridine [Pyridium] 100 mg PO TID 3 Days day Tamsulosin [Flomax] 0.4 mg PO DAILY #10 cap Is patient prescribed a controlled substance at d/c from ED?: No Referrals: Scot Smith MD [Primary Care Provider] - 1-2 days Kang Dumont MD [STAFF PHYSICIAN] - 1-2 days Time of Disposition: 22:07
[2017-12-01 21:11] LABS: ALT 25 U/L (9-52); AST 22 U/L (14-36); Albumin 4.9 g/dL (3.5-5.0); Alkaline Phosphatase 58 U/L (38-126); Amylase 64 U/L (30-110); Anion Gap 10 mmol/L; Blood Urea Nitrogen 13 mg/dL (7-17); Calcium 10.1 mg/dL (8.4-10.2); Carbon Dioxide 21 mmol/L (22-30); Chloride 111 mmol/L (98-107); Glucose 89 mg/dL (74-99); Lipase 160 U/L (23-300); Potassium 4.7 mmol/L (3.5-5.1); Sodium 142 mmol/L (137-145); Total Bilirubin 0.4 mg/dL (0.2-1.3); Total Protein 8.5 g/dL (6.3-8.2)
[2017-12-01 21:13] LABS: Basophils % (A) 0 %; Eosinophils # (A) 0.1 k/uL (0-0.7); Eosinophils % (A) 2 %; HCT 45.2 % (34.0-46.0); HGB 15.4 gm/dL (11.4-16.0); Lymphocytes # (A) 1.8 k/uL (1.0-4.8); Lymphocytes % (A) 23 %; MCH 30.3 pg (25.0-35.0); MCV 89.1 fL (80.0-100.0); Monocytes # (A) 0.3 k/uL (0-1.0); Monocytes % (A) 4 %; Neutrophils # (A) 5.6 k/uL (1.3-7.7); Neutrophils % (A) 71 %; Platelet Count 328 k/uL (150-450); RBC 5.07 m/uL (3.80-5.40); RDW 13.2 % (11.5-15.5)
[2017-12-01] MEDS ORDERED: MORPHINE SULFATE 4 MG/ML SYRINGE IVP STA ×2 (21:19→22:01)
--- NOTE | 2017-12-01 21:39 | US ---
EXAMINATION TYPE: US kidneys/renal and bladder DATE OF EXAM: 12/01/2017 COMPARISON: 10/15/2017 CLINICAL HISTORY: Pain. Right side pain. Exam limitations due to patient is so much pain unable to st raighten out legs.Started with left kidney due to patient position. EXAM MEASUREMENTS: Right Kidney: 8.6 x 4.0 x 3.4 cm Left Kidney: 10.2 x 4.8 x 4.1 cm Right Kidney: No hydronephrosis or masses seen Left Kidney: No hydronephrosis or masses seen Bladder: Not full There is no evidence for hydronephrosis at this point in time. No nephrolithiasis is seen. No ayanna s are identified. IMPRESSION: No evidence of renal mass or obstruction. No adverse change compared to old exam.
--- NOTE | 2017-12-01 21:53 | XR ---
EXAMINATION TYPE: XR KUB DATE OF EXAM: 12/01/2017 COMPARISON: 10/15/2017 HISTORY: Abdominal pain TECHNIQUE: 3 views FINDINGS: There is no sign of intestinal obstruction or pneumoperitoneum. Fecal pattern is normal. Th ere are no pathologic calcifications. IMPRESSION: Nonacute abdomen. No change.
[2017-12-01 22:26] VITALS: BP 127/77; PULSE 100; RESP 16
[2017-12-01] MEDS ORDERED: LORazepam 2 MG/ML INJ IV STA (22:47)
== END 2017-12-01 23:01 | disposition home or self-care (01) ==
LOC: EC 19:15
DX: N20.0 Calculus of kidney (principal); F41.9 Anxiety disorder, unspecified; Z90.710 Acquired absence of both cervix and uterus; Z98.51 Tubal ligation status; Z98.890 Other specified postprocedural states; Z88.1 Allergy status to other antibiotic agents; Z88.5 Allergy status to narcotic agent; Z88.6 Allergy status to analgesic agent; Z88.8 Allergy status to other drugs, medicaments and biological substances; Z88.0 Allergy status to penicillin; Z88.2 Allergy status to sulfonamides
CPT/HCPCS: 99285; 96374; 96375 ×4; 96376; 96361; 36415; 80053; 82150; 83690; 85025; 81001; 81025; 87086; 74018; 76770; J2060; J2270; J1200; J2405; J1885

== ENCOUNTER 2017-12-02 12:39 | Emergency (ER) | payer BC ==
[2017-12-02 12:48] VITALS: RESP 18
[2017-12-02] MEDS ORDERED: HYDROmorphone 0.5 MG/0.5 ML SYRINGE IVP STA (13:19)
[2017-12-02] MEDS ORDERED: SODIUM CHLORIDE 0.9% 1,000 ML IV STA (13:19)
[2017-12-02] MEDS ORDERED: ONDANSETRON ODT 8 MG TAB.RAPDIS PO STA (13:19)
--- NOTE | 2017-12-02 13:34 | ED ---
General Adult HPI - General Chief complaint: Abdominal Pain Stated complaint: Abd.pain Time Seen by Provider: 12/02/17 12:54 Source: patient, RN notes reviewed, old records reviewed Mode of arrival: wheelchair Limitations: no limitations - History of Present Illness Initial comments: 27-year-old female presenting for bilateral flank pain. Patient has history of nephrolithiasis and is followed by urology. She was in the emergency department earlier today with similar complaint. She states she has had worsening right-sided flank pain as well as left-sided pain over the past 3-4 days. She also reports several episodes of nausea and vomiting. No change in her bowels. Patient is status post hysterectomy. No abdominal pain. Denies hematuria or dysuria. Denies fever or chills. - Related Data Home Medications Medication Instructions Recorded Confirmed Ibuprofen [Motrin Ib] 800 mg PO Q6H PRN 09/01/17 12/02/17 Acetaminophen [Tylenol] 650 mg PO Q6H PRN 10/09/17 12/02/17 Previous Rx's Medication Instructions Recorded HYDROcodone/APAP 5-325MG [[place] 1 tab PO Q6HR PRN #12 tab 12/02/17 5-325] Ibuprofen [Motrin] 600 mg PO Q8HR PRN #24 tab 12/02/17 Allergies Allergy/AdvReac Type Severity Reaction Status Date / Time azithromycin Allergy Rash/Hives/ Verified 12/02/17 12:59 Dyspnea Cephalosporins Allergy Rash/Hives Verified 12/02/17 12:59 codeine phosphate Allergy Rash/Hives Verified 12/02/17 12:59 [From Tylenol-Codeine #3] doxycycline Allergy Rash/Hives Verified 12/02/17 12:59 ketorolac [From Toradol] Allergy Rash/Hives Verified 12/02/17 12:59 metoclopramide HCl Allergy Rash/Hives Verified 12/02/17 12:59 [From Reglan] morphine Allergy Rash/Hives Verified 12/02/17 12:59 peanut Allergy Anaphylaxis Verified 12/02/17 12:59 Penicillins Allergy Rash/Hives Verified 12/02/17 12:59 Sulfa (Sulfonamide Allergy Rash/Hives Verified 12/02/17 12:59 Antibiotics) tramadol Allergy Rash/Hives Verified 12/02/17 12:59 Review of Systems ROS Statement: Those systems with pertinent positive or pertinent negative responses have been documented in the HPI. ROS Other: All systems not noted in ROS Statement are negative. Past Medical History Past Medical History: No Reported History Additional Past Medical History / Comment(s): Patient with history of recurrent kidney stones, urinary tract and kidney infections. History of Any Multi-Drug Resistant Organisms: None Reported Past Surgical History: Section, Hysterectomy, Tubal Ligation Additional Past Surgical History / Comment(s): Hx lithotripsies with stents x10 , hx surgery on left wrist., Past Anesthesia/Blood Transfusion Reactions: Previous Problems w/ Anesthesia, Postoperative Nausea & Vomiting (PONV) Additional Past Anesthesia/Blood Transfusion Reaction / Comment(s): Takes awhile to wake up after. Past Psychological History: Anxiety, Depression Smoking Status: Never smoker Past Alcohol Use History: None Reported Past Drug Use History: None Reported - Past Family History Father Family Medical History: Cancer General Exam Limitations: no limitations General appearance: alert, in no apparent distress Head exam: Present: atraumatic, normocephalic Eye exam: Present: normal appearance. Absent: PERRL, EOMI ENT exam: Present: normal exam Neck exam: Present: normal inspection. Absent: tenderness, meningismus Respiratory exam: Present: normal lung sounds bilaterally. Absent: respiratory distress Cardiovascular Exam: Present: regular rate, normal rhythm GI/Abdominal exam: Present: soft. Absent: distended, tenderness Extremities exam: Present: normal inspection, normal capillary refill. Absent: pedal edema Neurological exam: Present: alert, oriented X3, CN II-XII intact. Absent: motor sensory deficit Skin exam: Present: warm, dry, intact. Absent: cyanosis, diaphoretic Course Vital Signs 12/02/17 12/02/17 12/02/17 12:45 15:41 16:58 Temperature 98.8 F 98.7 F 98.2 F Pulse Rate 101 H 87 86 Respiratory 18 18 18 Rate Blood Pressure 114/80 153/80 134/83 O2 Sat by Pulse 98 98 99 Oximetry - Reevaluation(s) Reevaluation #1: 12/02/17 18:12 On reevaluation, patient is feeling better, willing to attempt oral pain medication at home. No vomiting in the emergency department. Vital signs remained stable. 12/02/17 18:13 Medical Decision Making - Medical Decision Making 27-year-old female presenting with bilateral flank pain, history of kidney stones. Initial workup reveals normal CBC, normal CMP. Urinalysis does show 9 RBCs, 14 white cells, 9 squamous cells, there is crystals and rare bacteria as well. She was started on antibiotics yesterday after her ER visit. Abdominal x -ray negative for obstruction or radiopaque renal stone. Patient's pain persists, I did discuss the risks and benefits of the computed tomography scan to further evaluate her pain. Patient is willing to accept these risks. She has bilateral nephrolithiasis with no obstructing stones. This also identified pocket of free fluid 6.2 x 2.7 cm in the pelvis. Ultrasound of the pelvis is then obtained which is negative for free fluid, no acute pathology. Patient's pain is bilateral flank. Case is discussed with urology on-call Dr. Lackey, no surgical intervention needed at this time. Patient is able to follow up as an outpatient. Patient does have good PCP and urology follow-up as an outpatient. She will be present with worsening or changing pain. She will continue antibiotics prescribed. She will maintain oral hydration. - Lab Data Result diagrams: 12/02/17 13:45 12/02/17 13:45 Lab Results 12/02/17 12/02/17 12/02/17 Range/Units 13:45 13:45 13:45 WBC 6.3 (3.8-10.6) k/uL RBC 4.32 (3.80-5.40) m/uL Hgb 13.0 (11.4-16.0) gm/dL Hct 38.7 (34.0-46.0) % MCV 89.7 (80.0-100.0) fL MCH 30.0 (25.0-35.0) pg MCHC 33.5 (31.0-37.0) g/dL RDW 13.2 (11.5-15.5) % Plt Count 344 (150-450) k/uL Neutrophils % 65 % Lymphocytes % 27 % Monocytes % 5 % Eosinophils % 1 % Basophils % 1 % Neutrophils # 4.1 (1.3-7.7) k/uL Lymphocytes # 1.7 (1.0-4.8) k/uL Monocytes # 0.3 (0-1.0) k/uL Eosinophils # 0.1 (0-0.7) k/uL Basophils # 0.0 (0-0.2) k/uL Sodium 142 (137-145) mmol/L Potassium 4.4 (3.5-5.1) mmol/L Chloride 112 H (98-107) mmol/L Carbon Dioxide 21 L (22-30) mmol/L Anion Gap 9 mmol/L BUN 18 H (7-17) mg/dL Creatinine 0.60 (0.52-1.04) mg/dL Est GFR (CKD-EPI)AfAm >90 (>60 ml/min/1.73 sqM) Est GFR (CKD-EPI)NonAf >90 (>60 ml/min/1.73 sqM) Glucose 85 (74-99) mg/dL Calcium 9.5 (8.4-10.2) mg/dL Total Bilirubin 0.3 (0.2-1.3) mg/dL AST 13 L (14-36) U/L ALT 26 (9-52) U/L Alkaline Phosphatase 48 (38-126) U/L Total Protein 7.0 (6.3-8.2) g/dL Albumin 4.1 (3.5-5.0) g/dL Amylase 48 (30-110) U/L Lipase 69 (23-300) U/L Urine Color Urine Appearance (Clear) Urine pH (5.0-8.0) Ur Specific [place] (1.001-1.035) Urine Protein (Negative) Urine Glucose (UA) (Negative) Urine Ketones (Negative) Urine Blood (Negative) Urine Nitrite (Negative) Urine Bilirubin (Negative) Urine Urobilinogen (<2.0) mg/dL Ur Leukocyte Esterase (Negative) Urine RBC (0-5) /hpf Urine WBC (0-5) /hpf Ur Squamous Epith Cells (0-4) /hpf Calcium Oxalate Crystal (None) /hpf Urine Bacteria (None) /hpf Urine Mucus (None) /hpf Urine HCG, Qual Not Detected (Not Detectd) 12/02/17 Range/Units 13:45 WBC (3.8-10.6) k/uL RBC (3.80-5.40) m/uL Hgb (11.4-16.0) gm/dL Hct (34.0-46.0) % MCV (80.0-100.0) fL MCH (25.0-35.0) pg MCHC (31.0-37.0) g/dL RDW (11.5-15.5) % Plt Count (150-450) k/uL Neutrophils % % Lymphocytes % % Monocytes % % Eosinophils % % Basophils % % Neutrophils # (1.3-7.7) k/uL Lymphocytes # (1.0-4.8) k/uL Monocytes # (0-1.0) k/uL Eosinophils # (0-0.7) k/uL Basophils # (0-0.2) k/uL Sodium (137-145) mmol/L Potassium (3.5-5.1) mmol/L Chloride (98-107) mmol/L Carbon Dioxide (22-30) mmol/L Anion Gap mmol/L BUN (7-17) mg/dL Creatinine (0.52-1.04) mg/dL Est GFR (CKD-EPI)AfAm (>60 ml/min/1.73 sqM) Est GFR (CKD-EPI)NonAf (>60 ml/min/1.73 sqM) Glucose (74-99) mg/dL Calcium (8.4-10.2) mg/dL Total Bilirubin (0.2-1.3) mg/dL AST (14-36) U/L ALT (9-52) U/L Alkaline Phosphatase (38-126) U/L Total Protein (6.3-8.2) g/dL Albumin (3.5-5.0) g/dL Amylase (30-110) U/L Lipase (23-300) U/L Urine Color Yellow Urine Appearance Cloudy H (Clear) Urine pH 6.0 (5.0-8.0) Ur Specific [place] 1.022 (1.001-1.035) Urine Protein Trace H (Negative) Urine Glucose (UA) Negative (Negative) Urine Ketones Negative (Negative) Urine Blood Trace H (Negative) Urine Nitrite Negative (Negative) Urine Bilirubin Negative (Negative) Urine Urobilinogen <2.0 (<2.0) mg/dL Ur Leukocyte Esterase Moderate H (Negative) Urine RBC 9 H (0-5) /hpf Urine WBC 14 H (0-5) /hpf Ur Squamous Epith Cells 9 H (0-4) /hpf Calcium Oxalate Crystal Rare H (None) /hpf Urine Bacteria Rare H (None) /hpf Urine Mucus Occasional H (None) /hpf Urine HCG, Qual (Not Detectd) Disposition Clinical Impression: Bilateral flank pain Disposition: HOME SELF-CARE Condition: Good Instructions: Abdominal Pain (ED), Flank Pain (ED) Prescriptions: HYDROcodone/APAP 5-325MG [[place] 5-325] 1 tab PO Q6HR PRN #12 tab PRN Reason: Pain Ibuprofen [Motrin] 600 mg PO Q8HR PRN #24 tab PRN Reason: Pain Is patient prescribed a controlled substance at d/c from ED?: Yes When asked, does pt state using other controlled substances?: Yes If prescribed controlled substance>3 days was MAPS reviewed?: Prescribed <3 Days If opioid is for acute pain is fill amount 7 days or less?: Yes If Rx opioid, was Start Talking consent form obtained?: Yes Referrals: Scot Smith MD [Primary Care Provider] - 1-2 days Kang Dumont MD [STAFF PHYSICIAN] - 1-2 days Time of Disposition: 17:15
[2017-12-02] MEDS ORDERED: diphenhydrAMINE 50 MG/ML 1 ML VIAL IVP STA ×2 (13:36→14:48)
[2017-12-02 13:59] LABS: Basophils % (A) 1 %; Eosinophils # (A) 0.1 k/uL (0-0.7); Eosinophils % (A) 1 %; HCT 38.7 % (34.0-46.0); Lymphocytes # (A) 1.7 k/uL (1.0-4.8); Lymphocytes % (A) 27 %; MCHC 33.5 g/dL (31.0-37.0); MCV 89.7 fL (80.0-100.0); Mean Platelet Volume 6.5; Monocytes # (A) 0.3 k/uL (0-1.0); Monocytes % (A) 5 %; Neutrophils # (A) 4.1 k/uL (1.3-7.7); Neutrophils % (A) 65 %; Platelet Count 344 k/uL (150-450); RBC 4.32 m/uL (3.80-5.40); RDW 13.2 % (11.5-15.5); WBC 6.3 k/uL (3.8-10.6)
[2017-12-02 14:11] LABS: ALT 26 U/L (9-52); AST 13 U/L (14-36); Albumin 4.1 g/dL (3.5-5.0); Alkaline Phosphatase 48 U/L (38-126); Amylase 48 U/L (30-110); Anion Gap 9 mmol/L; Blood Urea Nitrogen 18 mg/dL (7-17); Calcium 9.5 mg/dL (8.4-10.2); Carbon Dioxide 21 mmol/L (22-30); Chloride 112 mmol/L (98-107); Glucose 85 mg/dL (74-99); Lipase 69 U/L (23-300); Potassium 4.4 mmol/L (3.5-5.1); Sodium 142 mmol/L (137-145); Total Bilirubin 0.3 mg/dL (0.2-1.3)
[2017-12-02 14:14] LABS: Appearance,Urine Cloudy (Clear); Bacteria,Urine Rare /hpf; Bilirubin,Urine Negative (Negative); Blood,Urine Trace (Negative); Calcium Oxalate Crystals,Urine Rare /hpf; Color,Urine Yellow; Glucose,Urine (UA) Negative (Negative); Ketones,Urine Negative (Negative); Leukocyte Esterase,Urine Moderate (Negative); Mucus,Urine Occasional /hpf; Nitrite,Urine Negative (Negative); Protein,Urine Trace (Negative); RBC,Urine 9 /hpf (0-5); Specific Gravity,Urine 1.022 (1.001-1.035); Squamous Epithelial Cell,Urine 9 /hpf (0-4); Urobilinogen,Urine <2.0 mg/dL (<2.0); WBC,Urine 14 /hpf (0-5)
--- NOTE | 2017-12-02 14:23 | XR ---
EXAMINATION TYPE: XR KUB DATE OF EXAM: 12/02/2017 COMPARISON: NONE HISTORY: Pain TECHNIQUE: Single supine KUB image of the abdomen is obtained FINDINGS: Small bowel demonstrates no evidence for dilatation or air fluid levels. Gas and fecal material is seen in non-distended colon. No convincing evidence for pneumoperitoneum. No unusual calcifications. The lung bases are clear. The osseous structures are intact. IMPRESSION: 1. Overall nonobstructive bowel gas pattern.
[2017-12-02] MEDS ORDERED: HYDROmorphone 1 MG/ML 1 ML SYRINGE IVP STA ×2 (14:48→17:32)
[2017-12-02] MEDS ORDERED: SODIUM CHLORIDE 0.9% 1,000 ML IV ONE (14:49)
--- NOTE | 2017-12-02 15:39 | CT ---
EXAMINATION TYPE: CT abdomen pelvis wo con DATE OF EXAM: 12/02/2017 COMPARISON: HISTORY: Abdominal pain, history of stones CT DLP: 657 mGycm Examination of the solid and hollow viscera is limited given the lack of contrast. FINDINGS: LUNG BASES: No evidence for nodule. No evidence for infiltrate. LIVER/GB: The gallbladder is unremarkable. No space-occupying hepatic lesion. PANCREAS: No pancreatic mass identified. No inflammatory process seen. SPLEEN: No evidence for splenomegaly. No intrasplenic lesions seen. ADRENALS: No adrenal nodules identified. No evidence for thickening. KIDNEYS: No evidence for renal mass. Tiny bilateral nonobstructing nephrolithiasis with the MEASURING LESS THAN 3 MM IN TOTAL APPROXIMATELY 3 ON THE LEFT AND ONE OR 2 ON THE RIGHT. No hydronephrosis. BOWEL: Appendix has a normal appearance. No evidence of bowel obstruction. No inflammatory process. Lymph nodes: No evidence for adenopathy greater than 1 cm. Abdominal aorta: Atheromatous changes seen. No evidence for aneurysm. Genital organs: There appear to be hysterectomy changes. Free fluid is seen within the pelvis measuri ng 6.2 x 2.7 cm. No adnexal masses are appreciated at this time. Other: No significant abnormality. IMPRESSION: 1. Pelvic free fluid without adnexal mass. Apparent hysterectomy changes. Correlate clinically. 2. Small nonobstructing nephrolithiasis seen bilaterally.
--- NOTE | 2017-12-02 16:56 | US ---
EXAMINATION TYPE: US pelvis complete transvag DATE OF EXAM: 12/02/2017 COMPARISON: CLINICAL HISTORY: Pain. CT showed free fluid. Partial hysterectomy in July 2017 TECHNIQUE: Transvaginal (TV) and Transabdominal (TA) . Transabdominal sonographic images of the pel vis were acquired. Transvaginal sonographic images were medically necessary to better assess the fol lowing anatomy: Endometrium Date of LMP: Hysterectomy EXAM MEASUREMENTS: Right Ovary: 2.2 x 1.7 x 1.5 cm Left Ovary: 2.9 x 2.1 x 1.9 cm 1. Uterus: Surgically absent 2. Endometrium: Surgically absent 3. Right Ovary: wnl 4. Left Ovary: Hypoechoic lesion with peripheral vascularity = 1.0 x 1.0 x 1.0 cm Spectral, color and waveform doppler imaging shows good arterial and venous flow within the ovaries ; there is no evidence for ovarian torsion. 5. Bilateral Adnexa: Bowel gas seen 6. Posterior cul-de-sac: no free fluid visualized at this time IMPRESSION: Hysterectomy. No evidence of ovarian torsion. No free fluid.
[2017-12-02 18:45] VITALS: BP 164/83; PULSE 62; TEMP 98.3
== END 2017-12-02 18:44 | disposition home or self-care (01) ==
LOC: EC 12:39
DX: R10.9 Unspecified abdominal pain (principal); N20.0 Calculus of kidney; R82.71 Bacteriuria; R82.99 Other abnormal findings in urine; R11.2 Nausea with vomiting, unspecified; Z88.0 Allergy status to penicillin; Z88.1 Allergy status to other antibiotic agents; Z88.2 Allergy status to sulfonamides; Z88.5 Allergy status to narcotic agent; Z88.6 Allergy status to analgesic agent; Z88.8 Allergy status to other drugs, medicaments and biological substances; Z91.010 Allergy to peanuts; Z96.0 Presence of urogenital implants; Z90.710 Acquired absence of both cervix and uterus
CPT/HCPCS: 36415; 80053; 82150; 83690; 85025; 81001; 81025; 87086; 74018; 93975; 76856; 76830; 74176; 99285; 96374; 96375; 96376 ×3; 96361 ×2; J1200; J1170 ×2

== ENCOUNTER 2017-12-09 13:47 | Emergency (ER) | payer BC ==
[2017-12-09 14:06] VITALS: TEMP 98.3
--- NOTE | 2017-12-09 16:02 | ED ---
Abdominal Pain HPI - General Chief Complaint: Abdominal Pain Stated Complaint: Abd Pain Time Seen by Provider: 12/09/17 15:16 Source: patient, RN notes reviewed Mode of arrival: wheelchair Limitations: no limitations - History of Present Illness Initial Comments: This is a 27-year-old female who presents to the emergency department with chief complaint of abdominal and flank pain. Patient is well-known to the emergency department. She was seen twice this past week with the same problems. A computed tomography scan was obtained which revealed evidence for tiny nonobstructing nephrolithiasis bilaterally. Transvaginal ultrasound was obtained which revealed no acute abnormalities. Patient was discharged home with recommendation to follow-up with urology and [facility]. Patient states she has yet to follow-up. She presents today complaining of bilateral flank pain with radiation to the lower abdomen. She reports nausea. Denies fevers or chills, vomiting, diarrhea or constipation. Denies abnormal vaginal bleeding or discharge. - Related Data Home Medications Medication Instructions Recorded Confirmed Ibuprofen [Motrin Ib] 800 mg PO Q6H PRN 09/01/17 12/09/17 Acetaminophen [Tylenol] 650 mg PO Q6H PRN 10/09/17 12/09/17 Garcinia Cambogia 1 tab PO DAILY 12/09/17 12/09/17 Previous Rx's Medication Instructions Recorded HYDROcodone/APAP 5-325MG [[place] 1 tab PO Q6HR PRN #12 tab 12/02/17 5-325] Allergies Allergy/AdvReac Type Severity Reaction Status Date / Time azithromycin Allergy Rash/Hives/ Verified 12/09/17 15:28 Dyspnea Cephalosporins Allergy Rash/Hives Verified 12/09/17 15:28 codeine phosphate Allergy Rash/Hives Verified 12/09/17 15:28 [From Tylenol-Codeine #3] doxycycline Allergy Rash/Hives Verified 12/09/17 15:28 ketorolac [From Toradol] Allergy Rash/Hives Verified 12/09/17 15:28 metoclopramide HCl Allergy Rash/Hives Verified 12/09/17 15:28 [From Reglan] morphine Allergy Rash/Hives Verified 12/09/17 15:28 peanut Allergy Anaphylaxis Verified 12/09/17 15:28 Penicillins Allergy Rash/Hives Verified 12/09/17 15:28 Sulfa (Sulfonamide Allergy Rash/Hives Verified 12/09/17 15:28 Antibiotics) tramadol Allergy Rash/Hives Verified 12/09/17 15:28 Review of Systems ROS Statement: Those systems with pertinent positive or pertinent negative responses have been documented in the HPI. ROS Other: All systems not noted in ROS Statement are negative. Past Medical History Past Medical History: No Reported History Additional Past Medical History / Comment(s): Patient with history of recurrent kidney stones, urinary tract and kidney infections, endometriosis History of Any Multi-Drug Resistant Organisms: None Reported Past Surgical History: Section, Hysterectomy, Tubal Ligation Additional Past Surgical History / Comment(s): Hx lithotripsies with stents x10 , hx surgery on left wrist., Past Anesthesia/Blood Transfusion Reactions: Previous Problems w/ Anesthesia, Postoperative Nausea & Vomiting (PONV) Additional Past Anesthesia/Blood Transfusion Reaction / Comment(s): Takes awhile to wake up after. Past Psychological History: Anxiety, Depression Smoking Status: Never smoker Past Alcohol Use History: None Reported Past Drug Use History: None Reported - Past Family History Father Family Medical History: Cancer General Exam - General Exam Comments Initial Comments: General: Awake and alert, well-developed; in no apparent distress. Patient is tearful. HEENT: Head atraumatic, normocephalic. Pupils are equal, round and reactive to light. Extraocular movements intact. Oropharynx moist without erythema or exudate. Neck: Supple. Normal ROM. Cardiovascular: Regular rate and rhythm. No murmurs, rubs or gallops. Chest symmetrical. Respiratory: Lungs clear to auscultation bilaterally. No wheezes, rales or rhonchi. Normal respiratory effort with no use of accessory muscles. Abdomen: Soft, non-distended. Mild tenderness on palpation of lower abdomen. No rigidity, rebound or guarding. Normal bowel sounds in all 4 quadrants. Musculoskeletal: Normal ROM, no tenderness bilateral upper and lower extremities. Ambulating normally. Skin: [place], warm and dry without rashes or lesions. Neurological: Alert and oriented x3. CN II-XII grossly intact. Speech is fluent and answers are appropriate. No focal neuro deficits. Psychiatric: Normal mood and affect. No overt signs of depression or anxiety noted. Limitations: no limitations Course Vital Signs 12/09/17 14:03 Temperature 98.3 F Pulse Rate 108 H Respiratory 14 Rate Blood Pressure 126/88 O2 Sat by Pulse 96 Oximetry Medical Decision Making - Medical Decision Making This is a 27-year-old female who presents to the emergency department with chief complaint of abdominal pain. Patient is well-known to the emergency department. She was seen twice here in the emergency department this past week and had extensive workups performed. Laboratory studies, computed tomography scan of the abdomen and pelvis and ultrasound of the pelvis revealed no abnormalities to account for patient's symptoms. Patient returns again to the emergency Department today with complaints that her at-home pain medications are not helping. Case is discussed with attending physician, Dr. Mendez who reviewed patient's previous studies. Recommended discharge home with follow-up to urology and [facility]. Vital signs are stable and patient is in no acute distress. She'll be discharged home at this time. Disposition Clinical Impression: Abdominal pain Disposition: HOME SELF-CARE Condition: Fair Instructions: Abdominal Pain (ED) Additional Instructions: Please follow up with urology, [facility] and primary care provider as scheduled and discussed.Please take medications as prescribed. Please follow up with primary care provider within 1-2 days. Return to emergency department if symptoms should worsen or any concerns arise. Is patient prescribed a controlled substance at d/c from ED?: No Referrals: Scot Smith MD [Primary Care Provider] - 1-2 days Time of Disposition: 16:14
[2017-12-09 16:52] VITALS: BP 103/74; PULSE 87; RESP 20
== END 2017-12-09 16:51 | disposition home or self-care (01) ==
LOC: EC 13:47
DX: R10.31 Right lower quadrant pain (principal); R10.32 Left lower quadrant pain; R11.0 Nausea; Z87.442 Personal history of urinary calculi; Z90.710 Acquired absence of both cervix and uterus; Z98.51 Tubal ligation status; Z98.890 Other specified postprocedural states; Z53.29 Procedure and treatment not carried out because of patient's decision for other reasons; Z79.899 Other long term (current) drug therapy; Z88.1 Allergy status to other antibiotic agents; Z88.5 Allergy status to narcotic agent; Z88.6 Allergy status to analgesic agent; Z88.8 Allergy status to other drugs, medicaments and biological substances; Z91.010 Allergy to peanuts; Z88.0 Allergy status to penicillin; Z88.2 Allergy status to sulfonamides
CPT/HCPCS: 99284

== ENCOUNTER 2017-12-26 07:53 | Emergency (ER) | payer BC ==
[2017-12-26 07:57] VITALS: RESP 20; TEMP 98.1
[2017-12-26] MEDS ORDERED: ONDANSETRON 4 MG/2 ML VIAL IVP STA (08:15)
[2017-12-26] MEDS ORDERED: SODIUM CHLORIDE 0.9% 1,000 ML IV STA (08:15)
[2017-12-26] MEDS ORDERED: HYDROmorphone 0.5 MG/0.5 ML SYRINGE IVP STA (08:15)
--- NOTE | 2017-12-26 08:19 | ED ---
General Adult HPI - General Chief complaint: Abdominal Pain Stated complaint: Abd Pain Time Seen by Provider: 12/26/17 08:07 Source: patient, RN notes reviewed, old records reviewed Mode of arrival: wheelchair Limitations: no limitations - History of Present Illness Initial comments: Patient's a 27-year-old female presented to the emergency room today with a chief complaint of left flank pain. Patient does admit pain increased last night. A medication of [place] 5/325 at home. Patient has multiple ER visits with similar complaints. Patient does admit to a history of kidney stones. States feels somewhat similar to this. She denies any other complaints or symptoms. Patient denies any recent fever, chills, shortness of breath, chest pain, numbness or tingling, headaches or visual changes, or any other complaints. - Related Data Home Medications Medication Instructions Recorded Confirmed Ibuprofen [Motrin Ib] 800 mg PO Q6H PRN 09/01/17 12/09/17 Acetaminophen [Tylenol] 650 mg PO Q6H PRN 10/09/17 12/09/17 Garcinia Cambogia 1 tab PO DAILY 12/09/17 12/09/17 Previous Rx's Medication Instructions Recorded HYDROcodone/APAP 5-325MG [[place] 1 tab PO Q6HR PRN #12 tab 12/02/17 5-325] Allergies Allergy/AdvReac Type Severity Reaction Status Date / Time azithromycin Allergy Rash/Hives/ Verified 12/26/17 07:56 Dyspnea Cephalosporins Allergy Rash/Hives Verified 12/26/17 07:56 codeine phosphate Allergy Rash/Hives Verified 12/26/17 07:56 [From Tylenol-Codeine #3] doxycycline Allergy Rash/Hives Verified 12/26/17 07:56 ketorolac [From Toradol] Allergy Rash/Hives Verified 12/26/17 07:56 metoclopramide HCl Allergy Rash/Hives Verified 12/26/17 07:56 [From Reglan] morphine Allergy Rash/Hives Verified 12/26/17 07:56 peanut Allergy Anaphylaxis Verified 12/26/17 07:56 Penicillins Allergy Rash/Hives Verified 12/26/17 07:56 Sulfa (Sulfonamide Allergy Rash/Hives Verified 12/26/17 07:56 Antibiotics) tramadol Allergy Rash/Hives Verified 12/26/17 07:56 Review of Systems ROS Statement: Those systems with pertinent positive or pertinent negative responses have been documented in the HPI. ROS Other: All systems not noted in ROS Statement are negative. Past Medical History Past Medical History: No Reported History Additional Past Medical History / Comment(s): Patient with history of recurrent kidney stones, urinary tract and kidney infections, endometriosis History of Any Multi-Drug Resistant Organisms: None Reported Past Surgical History: Section, Hysterectomy, Tubal Ligation Additional Past Surgical History / Comment(s): Hx lithotripsies with stents x10 , hx surgery on left wrist., Past Anesthesia/Blood Transfusion Reactions: Previous Problems w/ Anesthesia, Postoperative Nausea & Vomiting (PONV) Additional Past Anesthesia/Blood Transfusion Reaction / Comment(s): Takes awhile to wake up after. Past Psychological History: Anxiety, Depression Smoking Status: Never smoker Past Alcohol Use History: None Reported Past Drug Use History: None Reported - Past Family History Father Family Medical History: Cancer General Exam - General Exam Comments Initial Comments: General: The patient is awake and alert, in mild discomfort. Eye: Pupils are equal, round and reactive to light, extra-ocular movements are intact. No nystagmus. There is normal conjunctiva bilaterally. No signs of icterus. Ears, nose, mouth and throat: There are moist mucous membranes and no oral lesions. Neck: The neck is supple, there is no tenderness or JVD. Cardiovascular: There is a regular rate and rhythm. No murmur, rub or gallop is appreciated. Respiratory: Lungs are clear to auscultation, respirations are non-labored, breath sounds are equal. No wheezes, stridor, rales, or rhonchi. Gastrointestinal: Abdomen soft on palpation. Mild tenderness left flank. No rebound, guarding Musculoskeletal: Normal ROM, no tenderness. Strength 5/5. Sensation intact. Pulses equal bilaterally 2+. Neurological: A&O x 3. CN II-XII intact, There are no obvious motor or sensory deficits. Coordination appears grossly intact. Speech is normal. Skin: Skin is warm and dry and no rashes or lesions are noted. Psychiatric: Cooperative, appropriate mood & affect, normal judgment. Limitations: no limitations Course Vital Signs 12/26/17 07:55 Temperature 98.1 F Pulse Rate 90 Respiratory 20 Rate Blood Pressure 132/70 O2 Sat by Pulse 100 Oximetry Medical Decision Making - Medical Decision Making Patient's recent CT on 12/02/2017 was reviewed. Patient resting comfortable at this time. Patient has had multiple visits for similar complaints. Patient's urinalysis shows no sign of blood. There is rare bacteria no leukoesterase or positive nitrates. Culture is pending. Patient denies any symptoms for UTI. Patient blood work is unremarkable. Patient is advised following up with her family doctor and specialist for further evaluation. - Lab Data Result diagrams: 12/26/17 08:40 12/26/17 08:40 Lab Results 12/26/17 12/26/17 12/26/17 Range/Units 08:13 08:40 08:40 WBC 6.4 (3.8-10.6) k/uL RBC 4.24 (3.80-5.40) m/uL Hgb 12.9 (11.4-16.0) gm/dL Hct 38.0 (34.0-46.0) % MCV 89.5 (80.0-100.0) fL MCH 30.5 (25.0-35.0) pg MCHC 34.1 (31.0-37.0) g/dL RDW 13.2 (11.5-15.5) % Plt Count 339 (150-450) k/uL Neutrophils % 57 % Lymphocytes % 35 % Monocytes % 4 % Eosinophils % 3 % Basophils % 1 % Neutrophils # 3.6 (1.3-7.7) k/uL Lymphocytes # 2.2 (1.0-4.8) k/uL Monocytes # 0.3 (0-1.0) k/uL Eosinophils # 0.2 (0-0.7) k/uL Basophils # 0.0 (0-0.2) k/uL Sodium 141 (137-145) mmol/L Potassium 3.9 (3.5-5.1) mmol/L Chloride 106 (98-107) mmol/L Carbon Dioxide 27 (22-30) mmol/L Anion Gap 8 mmol/L BUN 13 (7-17) mg/dL Creatinine 0.67 (0.52-1.04) mg/dL Est GFR (CKD-EPI)AfAm >90 (>60 ml/min/1.73 sqM) Est GFR (CKD-EPI)NonAf >90 (>60 ml/min/1.73 sqM) Glucose 83 (74-99) mg/dL Calcium 9.4 (8.4-10.2) mg/dL Total Bilirubin 0.3 (0.2-1.3) mg/dL AST 14 (14-36) U/L ALT 25 (9-52) U/L Alkaline Phosphatase 46 (38-126) U/L Total Protein 7.2 (6.3-8.2) g/dL Albumin 4.1 (3.5-5.0) g/dL Amylase 40 (30-110) U/L Lipase 25 (23-300) U/L Urine Color Colorless Urine Appearance Cloudy H (Clear) Urine pH 6.5 (5.0-8.0) Ur Specific Check 1.002 (1.001-1.035) Urine Protein Negative (Negative) Urine Glucose (UA) Negative (Negative) Urine Ketones Negative (Negative) Urine Blood Negative (Negative) Urine Nitrite Negative (Negative) Urine Bilirubin Negative (Negative) Urine Urobilinogen <2.0 (<2.0) mg/dL Ur Leukocyte Esterase Negative (Negative) Urine WBC 1 (0-5) /hpf Ur Squamous Epith Cells 3 (0-4) /hpf Urine Bacteria Rare H (None) /hpf Disposition Clinical Impression: Abdominal pain Disposition: HOME SELF-CARE Condition: Good Instructions: Abdominal Pain (ED) Additional Instructions: Please use medication as discussed. Please follow-up with family doctor in the next 2 days. Please return to emergency room if the symptoms increase or worsen or for any other concerns. Is patient prescribed a controlled substance at d/c from ED?: No Referrals: Scot Smith MD [Primary Care Provider] - 1-2 days Time of Disposition: 09:32
[2017-12-26] MEDS ORDERED: diphenhydrAMINE 50 MG/ML 1 ML VIAL IVP STA (08:37)
[2017-12-26 08:57] LABS: Basophils % (A) 1 %; Eosinophils # (A) 0.2 k/uL (0-0.7); Eosinophils % (A) 3 %; HGB 12.9 gm/dL (11.4-16.0); Lymphocytes # (A) 2.2 k/uL (1.0-4.8); Lymphocytes % (A) 35 %; MCH 30.5 pg (25.0-35.0); MCHC 34.1 g/dL (31.0-37.0); MCV 89.5 fL (80.0-100.0); Mean Platelet Volume 6.6; Monocytes # (A) 0.3 k/uL (0-1.0); Monocytes % (A) 4 %; Neutrophils # (A) 3.6 k/uL (1.3-7.7); Neutrophils % (A) 57 %; Platelet Count 339 k/uL (150-450); RBC 4.24 m/uL (3.80-5.40); RDW 13.2 % (11.5-15.5); WBC 6.4 k/uL (3.8-10.6)
[2017-12-26 09:05] LABS: ALT 25 U/L (9-52); AST 14 U/L (14-36); Albumin 4.1 g/dL (3.5-5.0); Alkaline Phosphatase 46 U/L (38-126); Amylase 40 U/L (30-110); Anion Gap 8 mmol/L; Blood Urea Nitrogen 13 mg/dL (7-17); Calcium 9.4 mg/dL (8.4-10.2); Carbon Dioxide 27 mmol/L (22-30); Chloride 106 mmol/L (98-107); Glucose 83 mg/dL (74-99); Lipase 25 U/L (23-300); Potassium 3.9 mmol/L (3.5-5.1); Sodium 141 mmol/L (137-145); Total Bilirubin 0.3 mg/dL (0.2-1.3); Total Protein 7.2 g/dL (6.3-8.2)
[2017-12-26 09:26] LABS: Appearance,Urine Cloudy (Clear); Bacteria,Urine Rare /hpf; Bilirubin,Urine Negative (Negative); Blood,Urine Negative (Negative); Color,Urine Colorless; Glucose,Urine (UA) Negative (Negative); Ketones,Urine Negative (Negative); Leukocyte Esterase,Urine Negative (Negative); Nitrite,Urine Negative (Negative); PH, Urine 6.5 (5.0-8.0); Protein,Urine Negative (Negative); Specific Gravity,Urine 1.002 (1.001-1.035); Squamous Epithelial Cell,Urine 3 /hpf (0-4); Urobilinogen,Urine <2.0 mg/dL (<2.0); WBC,Urine 1 /hpf (0-5)
--- NOTE | 2017-12-26 09:34 | XR ---
EXAMINATION TYPE: XR KUB DATE OF EXAM: 12/26/2017 COMPARISON: 12/02/2017 HISTORY: Pain TECHNIQUE: One view abdominal series FINDINGS: The osseous structures are intact. The bowel gas pattern is nonspecific. Lung bases are clear. No s uspicious calculi are seen. IMPRESSION: 1. Nonspecific abdomen. No suspicious calculi are identified by standard x-ray although they have be en reported recently by CT scan 12/02/2017. If clinically warranted consider follow-up CT scan.
[2017-12-26 09:46] VITALS: BP 124/73; PULSE 85
== END 2017-12-26 09:46 | disposition home or self-care (01) ==
LOC: EC 07:53
DX: R10.9 Unspecified abdominal pain (principal); Z87.442 Personal history of urinary calculi; Z88.1 Allergy status to other antibiotic agents; Z88.0 Allergy status to penicillin; Z88.2 Allergy status to sulfonamides; Z88.5 Allergy status to narcotic agent; Z88.6 Allergy status to analgesic agent; Z91.010 Allergy to peanuts; Z88.8 Allergy status to other drugs, medicaments and biological substances
CPT/HCPCS: 36415; 80053; 82150; 83690; 85025; 81001; 87086; 74018; 99284; 96374; 96375 ×2; 96361; J1200; J2405; J1170

== ENCOUNTER 2018-01-27 10:02 | Day surgery (SDC) | payer BC ==
[2018-01-23 15:43] VITALS: BMI 25.4
[~2018-01-27 10:02] MED LIST changes: +DEXAMETHASONE SOD PHOSPHATE 10 MG/ML 1 ML VIAL IV ONE; +HYDROmorphone 0.5 MG/0.5 ML SYRINGE IVP PRN; +LIDOCAINE 1% 20 ML VIAL (10MG/ML) FOR IV START INTRADERMA PRN; +ONDANSETRON 4 MG/2 ML VIAL IVP ONE; -ceFAZolin IN SWFI 2 GM/20 ML SYRINGE IVP ONE
[2018-01-27 10:45] VITALS: TEMP 97.8
[2018-01-27] MEDS: LACTATED RINGERS 1,000 ML IV SCH ×2 (11:02→14:18)
[2018-01-27] MEDS ORDERED: fentaNYL (PF) 50 MCG/ML 2 ML AMP IV ONE (11:02)
[2018-01-27] MEDS ORDERED: PROPOFOL 10 MG/ML 20 ML VIAL IV ONE (11:27)
--- NOTE | 2018-01-27 12:11 | P.PCN ---
Date of Procedure: 01/27/18 Procedure(s) Performed: Procedure: Colonoscopy and biopsy. Preoperative diagnosis: Chronic diarrhea and abdominal pain. Postoperative diagnosis: 1. Exam of the colon and terminal ileum within normal limits. 2. Biopsies obtained from the terminal ileum and randomly from the colon. Preparation: HalfLytely prep. Sedation: Was provided by anesthesia. Brief clinical history: The patient is a 27-year-old female who was evaluated in the office regarding abdominal pain and diarrhea. This started one year prior and improved after she had surgery for endometriosis to recur 2 or 3 months afterwards and persisted to this present day. The patient has not responded to medical therapy for symptomatic treatment. No dietary triggers. This evaluation is to rule out inflammatory bowel disease or other pathology. Procedure: With the patient on her left lateral decubitus position and after informed consent and adequate sedation, the perianal area was inspected and it did not show any fissures or fistulas. There were no masses felt on digital rectal examination. The Olympus CFQ 160L video colonoscope was then inserted in the rectum in the usual fashion and advanced to the cecum. I intubated the ileocecal valve and examined the terminal ileum. Terminal ileum and colon appeared healthy with no edema, erythema, friability, ulceration, exudation or spontaneous bleeding. No polyps or tumors were seen or any obvious diverticular disease or other pathology. I obtained biopsies from the terminal ileum and randomly from the colon then I retroflexed the endoscope in the rectum before the endoscope was withdrawn. The patient tolerated the procedure well. Plan: The patient was reassured. Will await biopsy results. She is scheduled to follow-up in the office and we will keep you updated on her progress. She will follow-up with you as planned.
[2018-01-27] MEDS: fentaNYL (PF) 50 MCG/ML 2 ML AMP IVP PRN ×2 (12:16→12:38)
[2018-01-27] MEDS ORDERED: SIMETHICONE 80 MG CHEWABLE PO SCH (12:30)
[2018-01-27 12:58] VITALS: RESP 18
[2018-01-27 13:49] VITALS: BP 103/67; PULSE 99
--- NOTE | 2018-01-27 14:01 | XR ---
EXAMINATION TYPE: XR abdomen complete w decub DATE OF EXAM: 01/27/2018 COMPARISON: 12/26/2017 HISTORY: 27-year-old female with abdominal pain after colonoscopy TECHNIQUE: AP upright, left decubitus, and supine diffuse. FINDINGS: Lung bases are clear. No evidence for free intraperitoneal air. No dilated small bowel or air-fluid levels. Residual colonic gas is present after colonoscopy. No suspicious calcification seen. IMPRESSION: Residual colonic gas after colonoscopy. No evidence for free air or bowel obstruction.
== END 2018-01-27 14:40 | disposition home or self-care (01) ==
LOC: ORWHC2ENDO 10:02
DX: K52.9 Noninfective gastroenteritis and colitis, unspecified (principal); Z88.1 Allergy status to other antibiotic agents; Z88.5 Allergy status to narcotic agent; Z88.8 Allergy status to other drugs, medicaments and biological substances; Z88.2 Allergy status to sulfonamides; Z88.3 Allergy status to other anti-infective agents; Z79.1 Long term (current) use of non-steroidal anti-inflammatories (NSAID); Z79.891 Long term (current) use of opiate analgesic; Z87.440 Personal history of urinary (tract) infections; Z98.51 Tubal ligation status; Z90.710 Acquired absence of both cervix and uterus
CPT/HCPCS: 88305; 74021; 45380; J3010; J2704

== ENCOUNTER 2018-02-12 20:37 | Emergency (ER) | payer BC ==
[2018-02-12] MEDS ORDERED: ONDANSETRON 4 MG/2 ML VIAL IVP STA (21:21)
[2018-02-12] MEDS ORDERED: SODIUM CHLORIDE 0.9% 1,000 ML IV STA (21:21)
[2018-02-12] MEDS ORDERED: HYDROmorphone 1 MG/ML 1 ML SYRINGE IVP STA ×2 (21:21→23:07)
--- NOTE | 2018-02-12 21:26 | ED ---
Abdominal Pain HPI - General Chief Complaint: Abdominal Pain Stated Complaint: abdominal & side pain Time Seen by Provider: 02/12/18 21:13 Source: patient, family Mode of arrival: wheelchair Limitations: no limitations - History of Present Illness Initial Comments: 27-year-old female patient with past medical history significant for endometriosis and kidney stones presents to the emergency department today for complaints of bilateral flank pain and midepigastric pain. Patient states that she has been having bilateral flank pain for quite some time however did seem to worsen today. Patient states she is scheduled to have bilateral renal stenting with Dr. Dumont on 02/16/2018. Patient states that the midepigastric pain started today. Patient states it is a sharp stabbing pain. Denies any radiation of the pain to her back. States she is nauseated but has not vomited. She denies any constipation or diarrhea. States she has been having dark colored urine. She denies any fever or chills. Patient denies any recent rash, shortness breath, chest pain, numbness, tingling, dizziness, weakness, headache, visual changes, or any other complaints. Patient has had hysterectomy , , and lithotripsy. - Related Data Home Medications Medication Instructions Recorded Confirmed Progesterone, Micronized 100 mg PO DAILY 01/23/18 02/12/18 [Progesterone] Acetaminophen Tab [Tylenol Tab] 1,000 mg PO BID PRN 02/12/18 02/12/18 Ibuprofen [Motrin] 800 mg PO TID PRN 02/12/18 02/12/18 Previous Rx's Medication Instructions Recorded HYDROcodone/APAP 5-325MG [[place] 1 tab PO Q6HR PRN #12 tab 12/02/17 5-325] Allergies Allergy/AdvReac Type Severity Reaction Status Date / Time azithromycin Allergy Rash/Hives/ Verified 02/12/18 21:15 Dyspnea Cephalosporins Allergy Rash/Hives Verified 02/12/18 21:15 codeine phosphate Allergy Rash/Hives Verified 02/12/18 21:15 [From Tylenol-Codeine #3] doxycycline Allergy Rash/Hives Verified 02/12/18 21:15 fentanyl Allergy Nausea & Verified 02/12/18 21:15 Vomiting ketorolac [From Toradol] Allergy Rash/Hives Verified 02/12/18 21:15 metoclopramide HCl Allergy Rash/Hives Verified 02/12/18 21:15 [From Reglan] morphine Allergy Rash/Hives Verified 02/12/18 21:15 peanut Allergy Anaphylaxis Verified 02/12/18 21:15 Penicillins Allergy Rash/Hives Verified 02/12/18 21:15 Sulfa (Sulfonamide Allergy Rash/Hives Verified 02/12/18 21:15 Antibiotics) tramadol Allergy Rash/Hives Verified 02/12/18 21:15 Review of Systems ROS Statement: Those systems with pertinent positive or pertinent negative responses have been documented in the HPI. ROS Other: All systems not noted in ROS Statement are negative. Past Medical History Past Medical History: No Reported History Additional Past Medical History / Comment(s): Hx. recurrent kidney stones, urinary tract and kidney infections, endometriosis, lower abd. pain, hx. anemia History of Any Multi-Drug Resistant Organisms: None Reported Past Surgical History: Section, Hysterectomy, Tubal Ligation Additional Past Surgical History / Comment(s): Hx lithotripsies with stents x10 , bilateral ureteroscopy with lithotripsy 11/06/2916, hx surgery on left wrist. Past Anesthesia/Blood Transfusion Reactions: Previous Problems w/ Anesthesia, Postoperative Nausea & Vomiting (PONV) Additional Past Anesthesia/Blood Transfusion Reaction / Comment(s): Takes awhile to wake up after. Past Psychological History: Anxiety, Depression Smoking Status: Never smoker Past Alcohol Use History: None Reported Past Drug Use History: None Reported - Past Family History Father Family Medical History: Cancer General Exam Limitations: no limitations General appearance: alert, in no apparent distress, other (This is a well- developed, well-nourished adult female patient in mild distress related to pain. Vital signs upon presentation are temperature 98.2F, pulse 104, respirations 18, blood pressure 120/86, pulse ox 99% on room air.) Eye exam: Present: normal appearance, PERRL, EOMI. Absent: scleral icterus, conjunctival injection, periorbital swelling ENT exam: Present: normal exam, normal oropharynx, mucous membranes moist Respiratory exam: Present: normal lung sounds bilaterally. Absent: respiratory distress, wheezes, rales, rhonchi, stridor Cardiovascular Exam: Present: regular rate, normal rhythm, normal heart sounds. Absent: systolic murmur, diastolic murmur, rubs, gallop, clicks GI/Abdominal exam: Present: soft, tenderness (Rash or tenderness, right upper quadrant tenderness), normal bowel sounds. Absent: distended, guarding, rebound , rigid Back exam: Present: normal inspection. Absent: CVA tenderness (R), CVA tenderness (L) Neurological exam: Present: alert, oriented X3, CN II-XII intact Psychiatric exam: Present: normal affect, normal mood Skin exam: Present: warm, dry, intact, normal color. Absent: rash Course Vital Signs 02/12/18 02/12/18 02/12/18 20:55 22:37 23:28 Temperature 98 F 98.3 F Pulse Rate 104 H 74 Respiratory 18 17 18 Rate Blood Pressure 120/86 120/81 O2 Sat by Pulse 99 98 Oximetry Medical Decision Making - Medical Decision Making 27-year-old female patient with history of chronic flank pain and abdominal pain from endometriosis presents to the emergency department today for evaluation of bilateral flank pain and midepigastric discomfort. Physical examination did reveal some mild generalized abdominal tenderness, bilateral CVA tenderness. Labs reviewed and are unremarkable. Urinalysis is unremarkable. Patient is scheduled to have stenting and renal surgery on Friday with Dr. Dumont. Did discuss findings and results with the patient. She does have elevated discharged home at this time. She is instructed to follow- up with her primary care physician for recheck in 1-2 days. Return parameters were discussed in detail. She verbalizes understanding and agrees with this plan. - Lab Data Result diagrams: 02/12/18 21:50 02/12/18 21:50 Lab Results 02/12/18 02/12/18 02/12/18 Range/Units 21:22 21:50 21:50 WBC 6.7 (3.8-10.6) k/uL RBC 4.20 (3.80-5.40) m/uL Hgb 12.8 (11.4-16.0) gm/dL Hct 38.7 (34.0-46.0) % MCV 92.0 (80.0-100.0) fL MCH 30.5 (25.0-35.0) pg MCHC 33.1 (31.0-37.0) g/dL RDW 12.2 (11.5-15.5) % Plt Count 312 (150-450) k/uL Neutrophils % 46 % Lymphocytes % 47 % Monocytes % 3 % Eosinophils % 2 % Basophils % 1 % Neutrophils # 3.1 (1.3-7.7) k/uL Lymphocytes # 3.1 (1.0-4.8) k/uL Monocytes # 0.2 (0-1.0) k/uL Eosinophils # 0.1 (0-0.7) k/uL Basophils # 0.0 (0-0.2) k/uL Sodium 139 (137-145) mmol/L Potassium 3.8 (3.5-5.1) mmol/L Chloride 106 (98-107) mmol/L Carbon Dioxide 27 (22-30) mmol/L Anion Gap 6 mmol/L BUN 13 (7-17) mg/dL Creatinine 0.68 (0.52-1.04) mg/dL Est GFR (CKD-EPI)AfAm >90 (>60 ml/min/1.73 sqM) Est GFR (CKD-EPI)NonAf >90 (>60 ml/min/1.73 sqM) Glucose 88 (74-99) mg/dL Calcium 9.6 (8.4-10.2) mg/dL Total Bilirubin 0.3 (0.2-1.3) mg/dL AST 15 (14-36) U/L ALT 17 (9-52) U/L Alkaline Phosphatase 48 (38-126) U/L Total Protein 7.4 (6.3-8.2) g/dL Albumin 4.3 (3.5-5.0) g/dL Amylase 36 (30-110) U/L Lipase 31 (23-300) U/L Urine Color Yellow Urine Appearance Clear (Clear) Urine pH 6.0 (5.0-8.0) Ur Specific [place] 1.037 H (1.001-1.035) Urine Protein Trace H (Negative) Urine Glucose (UA) Negative (Negative) Urine Ketones Negative (Negative) Urine Blood Negative (Negative) Urine Nitrite Negative (Negative) Urine Bilirubin Negative (Negative) Urine Urobilinogen <2.0 (<2.0) mg/dL Ur Leukocyte Esterase Trace H (Negative) Urine RBC 2 (0-5) /hpf Urine WBC 2 (0-5) /hpf Ur Squamous Epith Cells 6 H (0-4) /hpf Urine Mucus Rare H (None) /hpf - Radiology Data Radiology results: report reviewed, image reviewed The KUB x-ray to abdomen was obtained. Report reviewed in its entirety. Impression by Dr. De Leon shows nonacute abdomen no change. Disposition Clinical Impression: Abdominal pain, Flank pain Disposition: HOME SELF-CARE Condition: Good Instructions: Abdominal Pain (ED), Flank Pain (ED) Additional Instructions: Follow-up with your urologist as you have planned. Follow up with her primary care physician for recheck in 1-2 days. Return here immediately for any new, worsening, or concerning symptoms. Is patient prescribed a controlled substance at d/c from ED?: No Referrals: Scot Smith MD [Primary Care Provider] - 1-2 days Time of Disposition: 23:07
[2018-02-12 21:58] LABS: Appearance,Urine Clear (Clear); Bilirubin,Urine Negative (Negative); Blood,Urine Negative (Negative); Color,Urine Yellow; Glucose,Urine (UA) Negative (Negative); Ketones,Urine Negative (Negative); Leukocyte Esterase,Urine Trace (Negative); Mucus,Urine Rare /hpf; Nitrite,Urine Negative (Negative); Protein,Urine Trace (Negative); RBC,Urine 2 /hpf (0-5); Specific Gravity,Urine 1.037 (1.001-1.035); Squamous Epithelial Cell,Urine 6 /hpf (0-4); Urobilinogen,Urine <2.0 mg/dL (<2.0); WBC,Urine 2 /hpf (0-5)
--- NOTE | 2018-02-12 22:18 | XR ---
EXAMINATION TYPE: XR KUB DATE OF EXAM: 02/12/2018 COMPARISON: 01/27/2018 HISTORY: Flank pain TECHNIQUE: Single view upright FINDINGS: There is no sign of intestinal obstruction or pneumoperitoneum. Lung bases are clear. There are no pathologic calcifications. There is no evidence of a mass. Fecal pattern is normal. IMPRESSION: Nonacute abdomen. No change.
[2018-02-12 22:23] LABS: Basophils % (A) 1 %; Eosinophils # (A) 0.1 k/uL (0-0.7); Eosinophils % (A) 2 %; HCT 38.7 % (34.0-46.0); HGB 12.8 gm/dL (11.4-16.0); Lymphocytes # (A) 3.1 k/uL (1.0-4.8); Lymphocytes % (A) 47 %; MCH 30.5 pg (25.0-35.0); MCHC 33.1 g/dL (31.0-37.0); Mean Platelet Volume 6.7; Monocytes # (A) 0.2 k/uL (0-1.0); Monocytes % (A) 3 %; Neutrophils # (A) 3.1 k/uL (1.3-7.7); Neutrophils % (A) 46 %; Platelet Count 312 k/uL (150-450); RDW 12.2 % (11.5-15.5); WBC 6.7 k/uL (3.8-10.6)
[2018-02-12 22:32] LABS: ALT 17 U/L (9-52); AST 15 U/L (14-36); Albumin 4.3 g/dL (3.5-5.0); Alkaline Phosphatase 48 U/L (38-126); Amylase 36 U/L (30-110); Anion Gap 6 mmol/L; Blood Urea Nitrogen 13 mg/dL (7-17); Calcium 9.6 mg/dL (8.4-10.2); Carbon Dioxide 27 mmol/L (22-30); Chloride 106 mmol/L (98-107); Glucose 88 mg/dL (74-99); Lipase 31 U/L (23-300); Potassium 3.8 mmol/L (3.5-5.1); Sodium 139 mmol/L (137-145); Total Bilirubin 0.3 mg/dL (0.2-1.3); Total Protein 7.4 g/dL (6.3-8.2)
[2018-02-12 23:29] VITALS: BP 120/81; PULSE 74; RESP 18; TEMP 98.3
== END 2018-02-12 23:31 | disposition home or self-care (01) ==
LOC: EC 20:37
DX: R10.9 Unspecified abdominal pain (principal); R11.0 Nausea; Z87.42 Personal history of other diseases of the female genital tract; Z87.442 Personal history of urinary calculi; Z90.710 Acquired absence of both cervix and uterus; Z98.51 Tubal ligation status; Z98.890 Other specified postprocedural states; Z88.0 Allergy status to penicillin; Z88.1 Allergy status to other antibiotic agents; Z88.2 Allergy status to sulfonamides; Z88.5 Allergy status to narcotic agent; Z88.6 Allergy status to analgesic agent; Z88.8 Allergy status to other drugs, medicaments and biological substances; Z91.010 Allergy to peanuts
CPT/HCPCS: 36415; 80053; 82150; 83690; 85025; 81001; 74018; 99284; 96374; 96375; 96376; 96361; J2405; J1170

== ENCOUNTER 2018-02-16 11:27 | Day surgery (SDC) | payer BC ==
[2018-02-09 12:10] VITALS: BMI 26.4
--- NOTE | 2018-02-11 20:58 | P.GSHP ---
History of Present Illness H&P Date: 02/09/18 Chief Complaint: Renal calculi The patient is a 27-year-old female with a history of calcium oxalate urolithiasis. She has a history of bilateral flank and abdominal pain and had previously been evaluated by me for this in 2016. She was found to have bilateral nonobstructive renal calculi measuring up to 2 mm in size. No other cause for her discomfort was found and she eventually underwent bilateral ureteroscopy with lithotripsy which involved several renal papillotomies to remove calculi noted in the renal papilla. She says that her pain resolved completely following the procedure. She says the pain returned later in the year. She's had CT scans of the abdomen and pelvis in 06/29, 08/27, 09/26 and . Less than 1 mm calculi were noted in the lower pole of the right kidney and less than 2 mm calculi in the midportion of the left kidney. The left renal calculus appeared to be present prior to the previous ureteroscopy with lithotripsy and was unchanged in its appearance. The cause of the patient's persistent pain has not been unexplained. She underwent robotic-assisted laparoscopic hysterectomy in 07/2017 with no improvement. MRI of the abdomen and pelvis with and without IV contrast in 2017 was also unremarkable. The patient saw me in late January and I reviewed her radiographic studies with her. I told her it is unclear whether her residual calculi are cause for her pain and I told her that it was unclear whether ureteroscopy with removal of the stones would be beneficial. In view of the failure to identify any other source for her pain the patient says that she wishes to proceed with bilateral ureteroscopy for removal of the stones. The patient has previously undergone left ureteroscopy with lithotripsy in 2007 , right ureteroscopy with lithotripsy in 2008, bilateral ureteroscopy in 2009 and left ureteroscopy with lithotripsy in 2011. She says that she's had metabolic evaluations in the past but a definite cause for her recurrent stones has never been identified. She has had occasional urinary tract infections in the past but none recently. - Constitutional Constitutional: Denies chills, Denies fever - Cardiovascular Cardiovascular: Denies edema, Denies palpitations - Respiratory Respiratory: Denies cough, Denies wheezing - Gastrointestinal Gastrointestinal: Reports as per HPI - Genitourinary (Female) Genitourinary: Denies dysuria, Denies hematuria Past Medical History Past Medical History: No Reported History Additional Past Medical History / Comment(s): Hx. recurrent kidney stones, urinary tract and kidney infections, endometriosis, bloating, frequent explosive diarrhea, lower abd. pain, hx. anemia History of Any Multi-Drug Resistant Organisms: None Reported Past Surgical History: Section, Hysterectomy, Tubal Ligation Additional Past Surgical History / Comment(s): Hx lithotripsies with stents x10 , bilateral ureteroscopy with lithotripsy 11/06/2916, hx surgery on left wrist. Past Anesthesia/Blood Transfusion Reactions: Previous Problems w/ Anesthesia, Postoperative Nausea & Vomiting (PONV) Additional Past Anesthesia/Blood Transfusion Reaction / Comment(s): Takes awhile to wake up after. Smoking Status: Never smoker - Past Family History Father Family Medical History: Cancer Medications and Allergies Home Medications Medication Instructions Recorded Confirmed Type Ibuprofen [Motrin Ib] 800 mg PO Q6H PRN 09/01/17 02/09/18 History HYDROcodone/APAP 5-325MG [[place] 1 tab PO Q6HR PRN #12 tab 12/02/17 02/09/18 Rx 5-325] Progesterone, Micronized 20 mg PO DAILY 01/23/18 02/09/18 History [Progesterone] Allergies Allergy/AdvReac Type Severity Reaction Status Date / Time azithromycin Allergy Rash/Hives/ Verified 01/27/18 10:43 Dyspnea Cephalosporins Allergy Rash/Hives Verified 01/27/18 10:43 codeine phosphate Allergy Rash/Hives Verified 01/27/18 10:43 [From Tylenol-Codeine #3] doxycycline Allergy Rash/Hives Verified 01/27/18 10:43 fentanyl Allergy Nausea & Verified 02/09/18 12:04 Vomiting ketorolac [From Toradol] Allergy Rash/Hives Verified 01/27/18 10:43 metoclopramide HCl Allergy Rash/Hives Verified 01/27/18 10:43 [From Reglan] morphine Allergy Rash/Hives Verified 01/27/18 10:43 peanut Allergy Anaphylaxis Verified 01/27/18 10:43 Penicillins Allergy Rash/Hives Verified 01/27/18 10:43 Sulfa (Sulfonamide Allergy Rash/Hives Verified 01/27/18 10:43 Antibiotics) tramadol Allergy Rash/Hives Verified 01/27/18 10:43 Surgical - Exam - General well developed, well nourished, no distress - Neck no masses, no lymphadectomy - Cardiovascular Rhythm: regular Abnormal Heart Sounds: no systolic murmur - Abdomen Abdomen: soft, tender (mild upper abdominal tenderness-bilateral), no organomegaly, no masses Assessment and Plan (1) Renal calculi Narrative/Plan: The patient willl undergo bilateral ureteroscopy with lithotripsy and possible bilateral JJ catheter placement. She is aware of the risks which include anesthesia, infection , hematuria, ureteral injury and persistence of her abdominal pain. Status: Acute Code(s): N20.0 - CALCULUS OF KIDNEY SNOMED Code(s): 72721857
[~2018-02-16 11:27] MED LIST changes: -HYDROmorphone 0.5 MG/0.5 ML SYRINGE IVP PRN; +LACTATED RINGERS 1,000 ML IV SCH; +LEVOFLOXACIN 500MG-D5W PMX 500 MG in DEXTROSE/WATER 1 100ML.BAG IVPB ONE; +MIDAZOLAM 2 MG/2 ML VIAL IV PRN
[2018-02-16] MEDS ORDERED: fentaNYL (PF) 50 MCG/ML 2 ML AMP ONE ×2 (12:21→12:41)
[2018-02-16] MEDS ORDERED: LIDOCAINE 1% INJ 10MG/ML (20 ML MDV) ONE (12:41)
[2018-02-16] MEDS ORDERED: PROPOFOL 10 MG/ML 20 ML VIAL IV ONE (12:41)
[2018-02-16] MEDS ORDERED: SUCCINYLCHOLINE CHLORIDE 100 MG/5 ML SYR IV ONE (12:41)
[2018-02-16] MEDS ORDERED: MIDAZOLAM 2 MG/2 ML VIAL ONE (12:41)
[2018-02-16] MEDS ORDERED: LACTATED RINGERS 1,000 ML IV ONE (13:22)
--- NOTE | 2018-02-16 14:11 | P.OP ---
Date of Procedure: 02/16/18 Preoperative Diagnosis: Bilateral abdominal pain and bilateral renal calculi Postoperative Diagnosis: Bilateral abdominal pain and bilateral renal calculi Procedure(s) Performed: Cystoscopy with bilateral ureteroscopy with lithotripsy and multiple renal papillotomy's. Anesthesia: GETA Surgeon: Kang Dumont Estimated Blood Loss (ml): 0 Pathology: none sent Condition: stable Disposition: PACU Indications for Procedure: The patient is a 27-year-old female with history of urolithiasis and chronic abdominal pain. One year ago I performed bilateral ureteroscopy with multiple papillotomy's for treatment of multiple nonobstructive renal calculi measuring between 1 and 3 mm in size. The patient's pain initially improved but then has recurred. Other sources for her pain have not been identified. Her most recent computed tomography scan again shows calculi in both kidneys measuring less than 1 or 2 mm in size. Repeat ureteroscopy with lithotripsy is planned. Description of Procedure: The patient was taken to the operating suite where adequate general anesthesia via LMA was instituted. The patient was placed in the dorsal lithotomy position with her legs suspended from padded Jose stirrups. Genitalia was prepped with Betadine solution and draped in sterile fashion. The 17-Vietnamese cystoscope with 30 lens was passed through the urethra into the bladder. Both ureteral orifices were of normal location and both appeared somewhat dilated due to previous ureteral instrumentation. The remainder the bladder was unremarkable. A straight 0.035 Glidewire was advanced through the right ureteral orifice and using fluoroscopy the Glidewire was advanced to the region of the proximal ureter. The cystoscope was withdrawn leaving the Glidewire in place. A flexible ureteroscope was advanced over the Glidewire and into the proximal ureter. The Glidewire was withdrawn. The proximal ureter was unremarkable. Renal pelvis was unremarkable. In the upper and mid pole of the right kidney were several tiny (less than 1 mm calculi which appeared to be embedded in the renal papilla. The calculi were released from the papilla using the holmium laser at a setting of 600 mJ and 6 cps. At the completion the procedure no residual visible calculi were noted within the papilla. The ureteroscope was withdrawn. Cystoscope was reintroduced into the bladder. The Glidewire was advanced through the cystoscope and into the proximal left ureter. The cystoscope was withdrawn and the flexible ureteroscope was advanced over the Glidewire into the proximal left ureter. The proximal ureter was unremarkable. Renal pelvis was unremarkable. In the mid pole of the kidney was a 1-2 mm calculus which was embedded in a papilla and was broken down using the holmium laser at a setting of 600 mJ and 6 cps. Another small less than 1 mm calculus was identified in an upper pole calyx and a papillotomy was performed to release it. At the completion the procedure no visible calculi remained. The ureteroscope was withdrawn. In view of the use which the ureteroscope was advanced through both ureters it was elected not to place double-J catheters. Patient tolerated procedure well and left the operative room awake and in satisfactory condition. She will be seen back in approximately 2 weeks.
--- NOTE | 2018-02-16 14:15 | FL ---
Fluoroscopy INDICATION: Pain FINDINGS: Fluoroscopy time: 8 seconds. Images obtained: 1. IMPRESSIONS: 1. Documentation of fluoroscopy.
[2018-02-16 14:18] VITALS: TEMP 97
[2018-02-16] MEDS ORDERED: HYDROmorphone 1 MG/ML 1 ML SYRINGE IVP ONE ×2 (14:30→15:30)
[2018-02-16 15:43] VITALS: RESP 18
[2018-02-16 16:03] VITALS: BP 106/68; PULSE 92
[2018-02-16] MEDS ORDERED: HYDROcodone/APAP 10-325MG 1 EACH TAB PO ONE (16:23)
== END 2018-02-16 16:50 | disposition home or self-care (01) ==
LOC: OR 11:27
PROVIDERS: ATTEND Urology
DX: N20.0 Calculus of kidney (principal); Z87.442 Personal history of urinary calculi; Z79.890 Hormone replacement therapy; Z88.0 Allergy status to penicillin; Z88.2 Allergy status to sulfonamides; Z88.8 Allergy status to other drugs, medicaments and biological substances; Z88.1 Allergy status to other antibiotic agents; Z88.5 Allergy status to narcotic agent; Z91.010 Allergy to peanuts
CPT/HCPCS: 52353; C1769; J2250; J1100; J2405; J2001; J3010; J1170; J0330; J2704

== ENCOUNTER → 2018-02-18 | Outpatient (CLI) | payer BC ==
--- NOTE | 2018-02-18 13:09 | US ---
EXAMINATION TYPE: US kidneys/renal and bladder DATE OF EXAM: COMPARISON: 12/02/2017. CLINICAL HISTORY: R34 Anuria and oliguria. Patient states she had lithotripsy performed on bilateral kidneys with scraping. Bilateral pain. EXAM MEASUREMENTS: Right Kidney: 8.9 x 3.7 x 3.2 cm Left Kidney: 9.4 x 4.5 x 4.1 cm Right Kidney: No hydronephrosis or masses seen Left Kidney: medial anechoic lesion seen at hilum - 0.9 x 0.9 x 1.3, probable renal sinus cyst. Bladder: wnl, distended. Suboptimal visualization of upper bladder due to bowel gas Bilateral Jets seen There is no evidence for hydronephrosis at this point in time. No nephrolithiasis is seen. The urin nguyen bladder is anechoic. Bilateral ureteral jets are seen. IMPRESSION: No hydronephrosis or nephrolithiasis. Probable 9 mm renal sinus cyst.
== END | disposition home or self-care (01) ==
LOC: RADUSWWP 12:10
PROVIDERS: ATTEND Family Medicine
DX: R34 Anuria and oliguria (principal)
CPT/HCPCS: 76770

== ENCOUNTER 2018-03-03 19:29 | Emergency (ER) | payer BC ==
[2018-03-03 19:43] VITALS: RESP 18; TEMP 98.4
[2018-03-03] MEDS ORDERED: diphenhydrAMINE 50 MG/ML 1 ML VIAL IVP STA (20:47)
[2018-03-03] MEDS ORDERED: HYDROmorphone 1 MG/ML 1 ML SYRINGE IVP STA ×2 (20:47→22:39)
[2018-03-03] MEDS ORDERED: SODIUM CHLORIDE 0.9% 1,000 ML IV STA (20:48)
[2018-03-03] MEDS ORDERED: ONDANSETRON 4 MG/2 ML VIAL IVP STA (20:49)
--- NOTE | 2018-03-03 20:54 | ED ---
General Adult HPI - General Chief complaint: Abdominal Pain Stated complaint: abdominal & side pain Time Seen by Provider: 03/03/18 20:20 Source: patient, RN notes reviewed Mode of arrival: wheelchair Limitations: no limitations - History of Present Illness Initial comments: 27-year-old female with a history of nephrolithiasis, urinary tract infection, endometriosis presents to the emergency department for chief complaint of epigastric pain 2 hours. Patient is well-known to this emergency department for similar complaints. Patient states she had a lithotripsy done about a week ago. She states today she had epigastric pain sharp in nature starting about 2 hours ago. She states the pain is constant. She states the pain is making her nauseous. She denies anything making it better. She denies chance of and states she has had a hysterectomy due to endometriosis. Patient has no other complaints at this time including shortness of breath, chest pain, abdominal pain, nausea or vomiting, headache, or visual changes. - Related Data Home Medications Medication Instructions Recorded Confirmed Ibuprofen [Motrin] 800 mg PO TID PRN 02/12/18 03/03/18 HYDROcodone/APAP 7.5-325MG [[place] 1 tab PO BID PRN 03/03/18 03/03/18 7.5-325] Ondansetron [Zofran ODT] 4 mg PO BID PRN 03/03/18 03/03/18 Previous Rx's Medication Instructions Recorded Famotidine [Pepcid] 20 mg PO BID 7 Days tablet 03/03/18 Allergies Allergy/AdvReac Type Severity Reaction Status Date / Time azithromycin Allergy Rash/Hives/ Verified 03/03/18 20:35 Dyspnea Cephalosporins Allergy Rash/Hives Verified 03/03/18 20:35 codeine phosphate Allergy Rash/Hives Verified 03/03/18 20:35 [From Tylenol-Codeine #3] doxycycline Allergy Rash/Hives Verified 03/03/18 20:35 fentanyl Allergy Nausea & Verified 03/03/18 20:35 Vomiting ketorolac [From Toradol] Allergy Rash/Hives Verified 03/03/18 20:35 metoclopramide HCl Allergy Rash/Hives Verified 03/03/18 20:35 [From Reglan] morphine Allergy Rash/Hives Verified 03/03/18 20:35 peanut Allergy Anaphylaxis Verified 03/03/18 20:35 Penicillins Allergy Rash/Hives Verified 03/03/18 20:35 Sulfa (Sulfonamide Allergy Rash/Hives Verified 03/03/18 20:35 Antibiotics) tramadol Allergy Rash/Hives Verified 03/03/18 20:35 Review of Systems ROS Statement: Those systems with pertinent positive or pertinent negative responses have been documented in the HPI. ROS Other: All systems not noted in ROS Statement are negative. Past Medical History Past Medical History: No Reported History Additional Past Medical History / Comment(s): Hx. recurrent kidney stones, urinary tract and kidney infections, endometriosis, lower abd. pain, hx. anemia History of Any Multi-Drug Resistant Organisms: None Reported Past Surgical History: Section, Hysterectomy, Tubal Ligation Additional Past Surgical History / Comment(s): Hx lithotripsies with stents x10 , bilateral ureteroscopy with lithotripsy 11/06/2916, hx surgery on left wrist. Past Anesthesia/Blood Transfusion Reactions: Previous Problems w/ Anesthesia, Postoperative Nausea & Vomiting (PONV) Additional Past Anesthesia/Blood Transfusion Reaction / Comment(s): Takes awhile to wake up after. Past Psychological History: Anxiety, Depression Smoking Status: Never smoker Past Alcohol Use History: None Reported Past Drug Use History: None Reported - Past Family History Father Family Medical History: Cancer General Exam Limitations: no limitations General appearance: alert, in no apparent distress Head exam: Present: atraumatic, normocephalic, normal inspection Eye exam: Present: normal appearance, PERRL, EOMI. Absent: scleral icterus, conjunctival injection, periorbital swelling ENT exam: Present: normal exam, mucous membranes moist Neck exam: Present: normal inspection, full ROM. Absent: tenderness, meningismus, lymphadenopathy Respiratory exam: Present: normal lung sounds bilaterally. Absent: respiratory distress, wheezes, rales, rhonchi, stridor Cardiovascular Exam: Present: regular rate, normal rhythm, normal heart sounds. Absent: systolic murmur, diastolic murmur, rubs, gallop, clicks GI/Abdominal exam: Present: soft, tenderness (Tenderness in the epigastric area as well as right upper quadrant and left upper quadrant. No significant tenderness noted in the lower abdomen.), normal bowel sounds. Absent: distended , guarding, rebound, rigid Neurological exam: Present: alert, oriented X3, CN II-XII intact Psychiatric exam: Present: normal affect, normal mood Course Vital Signs 03/03/18 03/03/18 19:41 23:02 Temperature 98.4 F Pulse Rate 131 H 88 Respiratory 18 18 Rate Blood Pressure 132/92 114/79 O2 Sat by Pulse 98 97 Oximetry Medical Decision Making - Medical Decision Making 27-year-old female presents to the emergency department for a chief complaint of epigastric pain 2 hours. Patient is well-known to this emergency department for similar complaints. She states she had a lithotripsy done about a week ago. She states she still has mild flank pain but that it is improving. Patient states today however she developed sharp epigastric pain certainly about 2 hours ago. Pain is making her nauseous. On exam patient does have generalized tenderness to the upper abdomen. Minimal lower abdominal tenderness. KUB showed a nonacute abdomen. Ultrasound of the gallbladder showed a negative right upper quadrant exam. No gallstones or dilated ducts. CBC and CMP are unremarkable. White count 6.6. Patient states she would rather have Dilaudid the morphine and was given her 0.5 mg of Dilaudid. Patient is still in pain and was given 0.5 mg again. She states she always needs Benadryl when she gets Dilaudid or morphine to prevent ALLERGIC reaction. Reevaluation patient states she is now feeling much better. Pain has decreased and is tolerable. Patient's pain may be related to gastritis. She will be given EPI prescription. She is to follow up with her GI specialist, Lexy. She will return if she has any worsening symptoms. Discussed with Dr florence - Lab Data Result diagrams: 03/03/18 21:20 03/03/18 21:20 Lab Results 03/03/18 03/03/18 03/03/18 Range/Units 21:20 21:20 21:20 WBC 6.6 (3.8-10.6) k/uL RBC 4.04 (3.80-5.40) m/uL Hgb 12.4 (11.4-16.0) gm/dL Hct 37.5 (34.0-46.0) % MCV 92.8 (80.0-100.0) fL MCH 30.8 (25.0-35.0) pg MCHC 33.2 (31.0-37.0) g/dL RDW 12.1 (11.5-15.5) % Plt Count 350 (150-450) k/uL Neutrophils % 56 % Lymphocytes % 36 % Monocytes % 4 % Eosinophils % 2 % Basophils % 1 % Neutrophils # 3.7 (1.3-7.7) k/uL Lymphocytes # 2.4 (1.0-4.8) k/uL Monocytes # 0.3 (0-1.0) k/uL Eosinophils # 0.1 (0-0.7) k/uL Basophils # 0.0 (0-0.2) k/uL Sodium 139 (137-145) mmol/L Potassium 4.0 (3.5-5.1) mmol/L Chloride 105 (98-107) mmol/L Carbon Dioxide 24 (22-30) mmol/L Anion Gap 10 mmol/L BUN 12 (7-17) mg/dL Creatinine 0.82 (0.52-1.04) mg/dL Est GFR (CKD-EPI)AfAm >90 (>60 ml/min/1.73 sqM) Est GFR (CKD-EPI)NonAf >90 (>60 ml/min/1.73 sqM) Glucose 89 (74-99) mg/dL Calcium 9.5 (8.4-10.2) mg/dL Total Bilirubin 0.3 (0.2-1.3) mg/dL AST 14 (14-36) U/L ALT 21 (9-52) U/L Alkaline Phosphatase 41 (38-126) U/L Total Protein 7.2 (6.3-8.2) g/dL Albumin 4.0 (3.5-5.0) g/dL Amylase 41 (30-110) U/L Lipase 39 (23-300) U/L Urine Color Yellow Urine Appearance Cloudy H (Clear) Urine pH 5.5 (5.0-8.0) Ur Specific [place] 1.032 (1.001-1.035) Urine Protein Trace H (Negative) Urine Glucose (UA) Negative (Negative) Urine Ketones Negative (Negative) Urine Blood Negative (Negative) Urine Nitrite Negative (Negative) Urine Bilirubin Negative (Negative) Urine Urobilinogen <2.0 (<2.0) mg/dL Ur Leukocyte Esterase Negative (Negative) Urine RBC 4 (0-5) /hpf Urine WBC 3 (0-5) /hpf Ur Squamous Epith Cells 6 H (0-4) /hpf Urine Mucus Rare H (None) /hpf Disposition Clinical Impression: Epigastric pain Disposition: HOME SELF-CARE Condition: Good Instructions: Abdominal Pain (ED) Additional Instructions: Please take Pepcid as directed. Please follow-up with Dr. Pugh in one to 2 days. Return immediately to the emergency department if you have any worsening symptoms. Prescriptions: Famotidine [Pepcid] 20 mg PO BID 7 Days tablet Is patient prescribed a controlled substance at d/c from ED?: No Referrals: Scot Smith MD [Primary Care Provider] - 1-2 days Stan Bishop MD [STAFF PHYSICIAN] - 1-2 days Time of Disposition: 23:30
[2018-03-03 21:54] LABS: Basophils % (A) 1 %; Eosinophils # (A) 0.1 k/uL (0-0.7); Eosinophils % (A) 2 %; HCT 37.5 % (34.0-46.0); HGB 12.4 gm/dL (11.4-16.0); Lymphocytes # (A) 2.4 k/uL (1.0-4.8); Lymphocytes % (A) 36 %; MCH 30.8 pg (25.0-35.0); MCHC 33.2 g/dL (31.0-37.0); MCV 92.8 fL (80.0-100.0); Mean Platelet Volume 6.3; Monocytes # (A) 0.3 k/uL (0-1.0); Monocytes % (A) 4 %; Neutrophils # (A) 3.7 k/uL (1.3-7.7); Neutrophils % (A) 56 %; Platelet Count 350 k/uL (150-450); RBC 4.04 m/uL (3.80-5.40); RDW 12.1 % (11.5-15.5); WBC 6.6 k/uL (3.8-10.6)
[2018-03-03 21:59] LABS: Appearance,Urine Cloudy (Clear); Bilirubin,Urine Negative (Negative); Blood,Urine Negative (Negative); Color,Urine Yellow; Glucose,Urine (UA) Negative (Negative); Ketones,Urine Negative (Negative); Leukocyte Esterase,Urine Negative (Negative); Mucus,Urine Rare /hpf; Nitrite,Urine Negative (Negative); PH, Urine 5.5 (5.0-8.0); Protein,Urine Trace (Negative); RBC,Urine 4 /hpf (0-5); Specific Gravity,Urine 1.032 (1.001-1.035); Squamous Epithelial Cell,Urine 6 /hpf (0-4); Urobilinogen,Urine <2.0 mg/dL (<2.0); WBC,Urine 3 /hpf (0-5)
[2018-03-03 22:06] LABS: ALT 21 U/L (9-52); AST 14 U/L (14-36); Alkaline Phosphatase 41 U/L (38-126); Amylase 41 U/L (30-110); Anion Gap 10 mmol/L; Blood Urea Nitrogen 12 mg/dL (7-17); Calcium 9.5 mg/dL (8.4-10.2); Carbon Dioxide 24 mmol/L (22-30); Chloride 105 mmol/L (98-107); Glucose 89 mg/dL (74-99); Lipase 39 U/L (23-300); Sodium 139 mmol/L (137-145); Total Bilirubin 0.3 mg/dL (0.2-1.3); Total Protein 7.2 g/dL (6.3-8.2)
--- NOTE | 2018-03-03 22:38 | XR ---
Abdomen single view. EXAMINATION TYPE: XR KUB DATE OF EXAM: 03/03/2018 COMPARISON: 02/12/2018 HISTORY: Bilateral flank pain TECHNIQUE: Single view upright FINDINGS: Bowel gas pattern is normal. There is no sign of intestinal obstruction or pneumoperitoneum . Fecal pattern is normal. Lung bases are clear. There are no pathologic calcifications. IMPRESSION: Nonacute abdomen. No change.
--- NOTE | 2018-03-03 22:50 | US ---
EXAMINATION TYPE: US gallbladder DATE OF EXAM: 03/03/2018 COMPARISON: NONE CLINICAL HISTORY: Pain. Pain HX of renal stones. Kidney surgery x 2 weeks ago. EXAM MEASUREMENTS: Liver Length: 15.8 cm Gallbladder Wall: 0.2 cm CBD: 0.4 cm Right Kidney: 9.4 x 3.8 x 4.2 cm no hydronephrosis. Pancreas: wnl Liver: wnl Gallbladder: Contracted. Evidence for sonographic Streeter's sign: No CBD: wnl Right Kidney: wnl IMPRESSION: Negative right upper quadrant abdominal sonogram. No gallstones or dilated ducts. Contrac amairani gallbladder.
[2018-03-03 23:03] VITALS: BP 114/79; PULSE 88
== END 2018-03-03 23:43 | disposition home or self-care (01) ==
LOC: EC 19:29
DX: R10.13 Epigastric pain (principal); R11.0 Nausea; Z88.0 Allergy status to penicillin; Z88.1 Allergy status to other antibiotic agents; Z88.2 Allergy status to sulfonamides; Z88.5 Allergy status to narcotic agent; Z88.6 Allergy status to analgesic agent; Z91.010 Allergy to peanuts; Z87.42 Personal history of other diseases of the female genital tract; Z90.710 Acquired absence of both cervix and uterus
CPT/HCPCS: 99284; 96374; 96375 ×2; 96376; 96361; 36415; 80053; 82150; 83690; 85025; 81001; 74018; 76705; J1200; J2405; J1170

== ENCOUNTER 2018-03-05 18:03 | Emergency (ER) | payer BC ==
[2018-03-05 18:42] VITALS: BP 126/81; PULSE 117; RESP 20; TEMP 98.3
--- NOTE | 2018-03-05 19:39 | ED ---
Abdominal Pain HPI - General Chief Complaint: Abdominal Pain Stated Complaint: abd pain Time Seen by Provider: 03/05/18 19:30 Source: patient, RN notes reviewed, old records reviewed Mode of arrival: wheelchair Limitations: no limitations - History of Present Illness Initial Comments: This is a 19-year-old female the ER for evaluation of bowel pain severe epigastric bowel pain with history of kidney stones. States he feels over the kidneys or pain. Patient states is here today as ago for same. Mild nausea mild vomiting unable take pain medications at home. No other fevers or complaint MD Complaint: abdominal pain -: days(s) (3) Location: diffuse, periumbilical, epigastric Radiation: bilateral flank, back Migration to: epigastric Severity: severe Severity scale (1-10): 9 Quality: sharp, burning Consistency: constant Improves With: nothing Worsens With: nothing Associated Symptoms: nausea, vomiting, diarrhea - Related Data Home Medications Medication Instructions Recorded Confirmed Ibuprofen [Motrin] 800 mg PO TID PRN 02/12/18 03/05/18 HYDROcodone/APAP 7.5-325MG [[place] 1 tab PO BID PRN 03/03/18 03/05/18 7.5-325] Ondansetron [Zofran ODT] 4 mg PO BID PRN 03/03/18 03/05/18 Previous Rx's Medication Instructions Recorded Famotidine [Pepcid] 20 mg PO BID 7 Days tablet 03/03/18 Allergies Allergy/AdvReac Type Severity Reaction Status Date / Time azithromycin Allergy Rash/Hives/ Verified 03/05/18 19:38 Dyspnea Cephalosporins Allergy Rash/Hives Verified 03/05/18 19:38 codeine phosphate Allergy Rash/Hives Verified 03/05/18 19:38 [From Tylenol-Codeine #3] doxycycline Allergy Rash/Hives Verified 03/05/18 19:38 fentanyl Allergy Nausea & Verified 03/05/18 19:38 Vomiting ketorolac [From Toradol] Allergy Rash/Hives Verified 03/05/18 19:38 metoclopramide HCl Allergy Rash/Hives Verified 03/05/18 19:38 [From Reglan] morphine Allergy Rash/Hives Verified 03/05/18 19:38 peanut Allergy Anaphylaxis Verified 03/05/18 19:38 Penicillins Allergy Rash/Hives Verified 03/05/18 19:38 Sulfa (Sulfonamide Allergy Rash/Hives Verified 03/05/18 19:38 Antibiotics) tramadol Allergy Rash/Hives Verified 03/05/18 19:38 Review of Systems ROS Statement: Those systems with pertinent positive or pertinent negative responses have been documented in the HPI. ROS Other: All systems not noted in ROS Statement are negative. Past Medical History Past Medical History: No Reported History Additional Past Medical History / Comment(s): Hx. recurrent kidney stones, urinary tract and kidney infections, endometriosis, lower abd. pain, hx. anemia History of Any Multi-Drug Resistant Organisms: None Reported Past Surgical History: Section, Hysterectomy, Tubal Ligation Additional Past Surgical History / Comment(s): Hx lithotripsies with stents x10 , bilateral ureteroscopy with lithotripsy 11/06/2916, hx surgery on left wrist. Past Anesthesia/Blood Transfusion Reactions: Previous Problems w/ Anesthesia, Postoperative Nausea & Vomiting (PONV) Additional Past Anesthesia/Blood Transfusion Reaction / Comment(s): Takes awhile to wake up after. Past Psychological History: Anxiety, Depression Smoking Status: Never smoker Past Alcohol Use History: None Reported Past Drug Use History: None Reported - Past Family History Father Family Medical History: Cancer General Exam Limitations: no limitations General appearance: alert, in no apparent distress, anxious, in distress ( Patient crying and pain) Head exam: Present: atraumatic, normocephalic, normal inspection Eye exam: Present: normal appearance, PERRL, EOMI. Absent: scleral icterus, conjunctival injection, periorbital swelling ENT exam: Present: normal exam, mucous membranes moist Neck exam: Present: normal inspection. Absent: tenderness, meningismus, lymphadenopathy Respiratory exam: Present: normal lung sounds bilaterally. Absent: respiratory distress, wheezes, rales, rhonchi, stridor Cardiovascular Exam: Present: normal rhythm, tachycardia, normal heart sounds. Absent: systolic murmur, diastolic murmur, rubs, gallop, clicks GI/Abdominal exam: Present: soft, tenderness, normal bowel sounds. Absent: distended, guarding, rebound, rigid Extremities exam: Present: normal inspection, full ROM, normal capillary refill. Absent: tenderness, pedal edema, joint swelling, calf tenderness Back exam: Present: normal inspection Neurological exam: Present: alert, oriented X3, CN II-XII intact Psychiatric exam: Present: normal affect, normal mood Skin exam: Present: warm, dry, intact, normal color. Absent: rash Course Vital Signs 03/05/18 18:40 Temperature 98.3 F Pulse Rate 117 H Respiratory 20 Rate Blood Pressure 126/81 O2 Sat by Pulse 95 Oximetry - Reevaluation(s) Reevaluation #1: 03/05/18 20:33 Medical record is reviewed including prior ER visit Reevaluation #2: 03/05/18 20:34 Pain is much improved a controlled Medical Decision Making - Medical Decision Making 19 female the ER for eversion of bowel pain, severe abdominal pain, labwork and CT abdomen pelvis are negative for acute disease. Patient will be discharged home - Radiology Data Radiology results: report reviewed (CT head and pelvis negative for acute disease), image reviewed Disposition Clinical Impression: Epigastric pain, Abdominal colic Disposition: HOME SELF-CARE Condition: Good Instructions: Abdominal Pain (ED) Is patient prescribed a controlled substance at d/c from ED?: No Referrals: Scot Smith MD [Primary Care Provider] - 1-2 days
[2018-03-05] MEDS ORDERED: SODIUM CHLORIDE 0.9% 500 ML 500 ML IV STA (19:44)
[2018-03-05] MEDS ORDERED: PANTOPRAZOLE 40 MG/10 ML VIAL IVP STA (19:44)
[2018-03-05] MEDS ORDERED: ONDANSETRON 4 MG/2 ML VIAL IVP STA (19:44)
[2018-03-05] MEDS ORDERED: SODIUM CHLORIDE 0.9% 1,000 ML IV STA ×2 (19:44)
[2018-03-05] MEDS ORDERED: HYDROmorphone 1 MG/ML 1 ML SYRINGE IVP STA (19:45)
[2018-03-05] MEDS ORDERED: diphenhydrAMINE 50 MG/ML 1 ML VIAL IVP STA (19:45)
[2018-03-05 20:49] LABS: Basophils % (A) 0 %; Eosinophils # (A) 0.1 k/uL (0-0.7); Eosinophils % (A) 2 %; HCT 39.6 % (34.0-46.0); HGB 13.6 gm/dL (11.4-16.0); Lymphocytes # (A) 1.3 k/uL (1.0-4.8); Lymphocytes % (A) 20 %; MCH 31.5 pg (25.0-35.0); MCHC 34.4 g/dL (31.0-37.0); MCV 91.5 fL (80.0-100.0); Mean Platelet Volume 6.4; Monocytes # (A) 0.2 k/uL (0-1.0); Monocytes % (A) 3 %; Neutrophils # (A) 4.9 k/uL (1.3-7.7); Neutrophils % (A) 73 %; Platelet Count 360 k/uL (150-450); RBC 4.33 m/uL (3.80-5.40); RDW 12.3 % (11.5-15.5); WBC 6.7 k/uL (3.8-10.6)
[2018-03-05 21:01] LABS: Amylase 54 U/L (30-110); Anion Gap 9 mmol/L; Blood Urea Nitrogen 12 mg/dL (7-17); Calcium 9.7 mg/dL (8.4-10.2); Carbon Dioxide 20 mmol/L (22-30); Chloride 110 mmol/L (98-107); Glucose 96 mg/dL (74-99); Lipase 69 U/L (23-300); Sodium 139 mmol/L (137-145)
[2018-03-05 21:04] LABS: ALT 9 U/L (9-52); AST 29 U/L (14-36); Albumin 4.6 g/dL (3.5-5.0); Alkaline Phosphatase 48 U/L (38-126); Potassium 5.5 mmol/L (3.5-5.1); Total Protein 8.3 g/dL (6.3-8.2)
[2018-03-05] MEDS ORDERED: HYDROmorphone 1 MG/ML 1 ML SYRINGE IM STA (21:21)
[2018-03-05] MEDS ORDERED: diphenhydrAMINE 50 MG CAP PO STA (21:21)
[2018-03-05] MEDS ORDERED: LORazepam 1 MG TAB PO STA (21:21)
[2018-03-05] MEDS ORDERED: ONDANSETRON ODT 4 MG TAB PO STA (21:21)
[2018-03-05] MEDS ORDERED: FAMOTIDINE 20 MG TAB PO STA (21:21)
--- NOTE | 2018-03-05 21:22 | CT ---
EXAMINATION TYPE: CT abdomen pelvis wo con DATE OF EXAM: 03/05/2018 COMPARISON: 12/02/2017 HISTORY: Epigastric pain. CT DLP: 325.7 mGycm Automated exposure control for dose reduction was used. TECHNIQUE: Helical acquisition of images was performed from the lung bases through the pelvis. FINDINGS: Lung bases are clear. There is no pleural effusion. Heart size is normal. There is no pericardial eff usion. Liver has normal size. Bile ducts are not dilated. Spleen measures 12 cm. There is no pancreatic mass . Gallbladder appears normal. There is no adrenal mass. There are 2 small calculi in the left kidney to measure up to 2 mm. There i s no retroperitoneal adenopathy. There is no hydronephrosis. Ureters are not dilated. The bladder dis tends smoothly. There is no inguinal hernia. There is trace free fluid in the pelvis. Uterus appears absent. I see no pelvic mass. There are 1 mm calcifications in the right kidney. There is no evidence of a bowel obstruction. I see no intestinal wall thickening. There are no dilate d loops. There is no free air. Stomach appears normal. There is no mesenteric edema or adenopathy. Th e lumbar spine is intact. Bony pelvis appears intact. IMPRESSION: TINY NONOBSTRUCTING BILATERAL RENAL CALCIFICATIONS. CALCIFICATIONS APPEAR THE SAME OR DECREASED [place]ONYA RED TO LAST EXAM. NO SIGN OF ACUTE ABDOMEN. THERE IS TRACE FLUID IN THE PELVIS UNCHANGED.
[2018-03-06 04:12] LABS: Appearance,Urine Cloudy (Clear); Bilirubin,Urine Negative (Negative); Blood,Urine Trace (Negative); Calcium Oxalate Crystals,Urine Many /hpf; Color,Urine Yellow; Glucose,Urine (UA) Negative (Negative); Ketones,Urine Negative (Negative); Leukocyte Esterase,Urine Trace (Negative); Mucus,Urine Many /hpf; Nitrite,Urine Negative (Negative); Protein,Urine Trace (Negative); RBC,Urine 10 /hpf (0-5); Squamous Epithelial Cell,Urine 35 /hpf (0-4); Urobilinogen,Urine <2.0 mg/dL (<2.0); WBC,Urine 11 /hpf (0-5)
== END 2018-03-05 21:59 | disposition home or self-care (01) ==
LOC: EC 18:03
DX: R10.84 Generalized abdominal pain (principal); R11.2 Nausea with vomiting, unspecified; R19.7 Diarrhea, unspecified; Z88.1 Allergy status to other antibiotic agents; Z88.0 Allergy status to penicillin; Z88.2 Allergy status to sulfonamides; Z88.5 Allergy status to narcotic agent; Z88.6 Allergy status to analgesic agent; Z91.010 Allergy to peanuts; Z90.710 Acquired absence of both cervix and uterus; Z98.51 Tubal ligation status; Z53.8 Procedure and treatment not carried out for other reasons
CPT/HCPCS: 36415; 80053; 82150; 83605; 83690; 85025; 81025; 74176; 99284; 96372; J1170; 81001; 87086

== ENCOUNTER → 2018-03-30 | Outpatient (CLI) | payer BC ==
--- NOTE | 2018-03-31 07:20 | US ---
EXAMINATION TYPE: US kidneys/renal and bladder DATE OF EXAM: 03/30/2018 COMPARISON: US dated 10/15/2017, CT dated 08/22/2017 CLINICAL HISTORY: Z87.442 History of urinary calculi. Pt. is post bilateral lithotripsy 02/16/2018; r enal calculi EXAM MEASUREMENTS: Right Kidney: 9.1 x 5.0 x 5.1 cm Left Kidney: 9.8 x 4.7 x 4.6 cm Post Void Residual Volume: 5.1 mL Right Kidney: lower pole hyperechoic shadowing small focus = 0.3 x0.2 x 0.2cm Left Kidney: possible small punctate hyperechoic foci seen in mid pole Bladder: wnl Bilateral Jets seen: yes Normal Post Void Residual: yes There is no evidence for hydronephrosis at this point in time. The urinary bladder is anechoic. Bila teral ureteral jets are seen. IMPRESSION: No evidence of hydronephrosis. 3 mm nonobstructing right renal calculus and punctate ill-defined nono bstructing left renal calculi.
== END ==
LOC: RADUSWWP 15:17
PROVIDERS: ATTEND Family Medicine
DX: Z09 Encounter for follow-up examination after completed treatment for conditions other than malignant neoplasm (principal); N20.0 Calculus of kidney
CPT/HCPCS: 76770

== ENCOUNTER 2018-06-12 01:11 | Emergency (ER) | payer BC ==
[2018-06-12] MEDS ORDERED: SODIUM CHLORIDE 0.9% 1,000 ML IV STA (01:29)
[2018-06-12 01:37] LABS: Glucose,Whole Blood 312 mg/dL (75-99)
--- NOTE | 2018-06-12 01:38 | ED ---
Overdose HPI - General Chief Complaint: Overdose Stated Complaint: OVERDOSE Time Seen by Provider: 06/12/18 01:27 Source: EMS Mode of arrival: EMS Limitations: physical limitation (Unresponsive) - History of Present Illness Initial Comments: This patient is 28-year-old woman brought by ambulance from home for suspected overdose. The patient was found unresponsive by family member. She had reportedly been seen approximate 45 minutes before. They did reportedly start bystander CPR. When EMS arrived they placed patient on cardiac surgeon that reportedly showed asystole. The patient was administered epinephrine, 2 ampules , and Narcan, 2 doses, while ACLS protocol was performed. The patient also had a right EJ line placed and was intubated. As result of the ACLS protocol, the patient did have ROSC, the patient was transferred here via ambulance. EMS personnel reported seeing a syringe on scene. Of course not able to obtain any history from this unresponsive patient -: unknown - Related Data Home Medications Medication Instructions Recorded Confirmed Ibuprofen [Motrin] 800 mg PO TID PRN 02/12/18 03/05/18 HYDROcodone/APAP 7.5-325MG [[place] 1 tab PO BID PRN 03/03/18 03/05/18 7.5-325] Ondansetron [Zofran ODT] 4 mg PO BID PRN 03/03/18 03/05/18 Previous Rx's Medication Instructions Recorded Famotidine [Pepcid] 20 mg PO BID 7 Days tablet 03/03/18 Allergies Allergy/AdvReac Type Severity Reaction Status Date / Time azithromycin Allergy Rash/Hives/ Verified 06/12/18 01:21 Dyspnea Cephalosporins Allergy Rash/Hives Verified 06/12/18 01:21 codeine phosphate Allergy Rash/Hives Verified 06/12/18 01:21 [From Tylenol-Codeine #3] doxycycline Allergy Rash/Hives Verified 06/12/18 01:21 fentanyl Allergy Nausea & Verified 06/12/18 01:21 Vomiting ketorolac [From Toradol] Allergy Rash/Hives Verified 06/12/18 01:21 metoclopramide HCl Allergy Rash/Hives Verified 06/12/18 01:21 [From Reglan] morphine Allergy Rash/Hives Verified 06/12/18 01:21 peanut Allergy Anaphylaxis Verified 06/12/18 01:21 Penicillins Allergy Rash/Hives Verified 02/01/19 01:21 Sulfa (Sulfonamide Allergy Rash/Hives Verified 06/12/18 01:21 Antibiotics) tramadol Allergy Rash/Hives Verified 06/12/18 01:21 Review of Systems ROS Statement: Those systems with pertinent positive or pertinent negative responses have been documented in the HPI. ROS Other: All systems not noted in ROS Statement are negative. Limitations: ROS unobtainable due to patients medical condition (Unable to obtain due to being unresponsive) Past Medical History Past Medical History: No Reported History Additional Past Medical History / Comment(s): Hx. recurrent kidney stones, urinary tract and kidney infections, endometriosis, lower abd. pain, hx. anemia History of Any Multi-Drug Resistant Organisms: None Reported Past Surgical History: Section, Hysterectomy, Tubal Ligation Additional Past Surgical History / Comment(s): Hx lithotripsies with stents x10 , bilateral ureteroscopy with lithotripsy 11/06/2916, hx surgery on left wrist. Past Anesthesia/Blood Transfusion Reactions: Previous Problems w/ Anesthesia, Postoperative Nausea & Vomiting (PONV) Additional Past Anesthesia/Blood Transfusion Reaction / Comment(s): Takes awhile to wake up after. Past Psychological History: Anxiety, Depression Smoking Status: Never smoker Past Alcohol Use History: None Reported Past Drug Use History: Heroin - Past Family History Father Family Medical History: Cancer General Exam Limitations: physical limitation General appearance: other (Patient is unresponsive. Patient arrives with endotracheal tube present and secured area) Head exam: Present: atraumatic, normocephalic Eye exam: Present: other (Pupils approximately 8 mm and unreactive). Absent: PERRL, EOMI, scleral icterus, conjunctival injection, periorbital swelling, periorbital tenderness ENT exam: Present: other (Endotracheal tube present and bite block as well.) Neck exam: Present: other (No evidence of neck trauma. There is an IV line in the right external jugular.) Respiratory exam: Present: rhonchi (Few scattered rhonchi during bagging. There is no spontaneous inspiratory effort) Cardiovascular Exam: Present: normal rhythm, tachycardia (Heart rate approximately 108 at exam), normal heart sounds. Absent: systolic murmur, diastolic murmur, rubs, gallop GI/Abdominal exam: Present: soft. Absent: distended, tenderness, guarding, rebound, organomegaly Extremities exam: Present: normal inspection, normal capillary refill. Absent: pedal edema Back exam: Present: normal inspection Neurological exam: Present: other ([place] Coma Scale is 3 on arrival. No deep tendon or cranial nerve reflexes detected) Skin exam: Present: warm, dry, intact, cyanosis. Absent: rash Course Vital Signs 06/12/18 06/12/18 06/12/18 01:13 01:50 02:00 Temperature 93.2 F L Pulse Rate 108 H 96 93 Respiratory 17 12 12 Rate Blood Pressure 106/61 84/48 80/42 O2 Sat by Pulse 92 L 98 98 Oximetry 06/12/18 06/12/18 06/12/18 02:20 02:30 02:40 Temperature Pulse Rate 99 98 100 Respiratory 12 12 12 Rate Blood Pressure 76/41 71/40 71/40 O2 Sat by Pulse 99 99 99 Oximetry 06/12/18 06/12/18 06/12/18 02:50 03:00 03:08 Temperature 92.8 F L Pulse Rate 122 H 123 H 119 H Respiratory 12 12 12 Rate Blood Pressure 108/59 162/106 122/75 O2 Sat by Pulse 99 99 98 Oximetry 06/12/18 06/12/18 06/12/18 03:30 03:50 04:00 Temperature Pulse Rate 122 H 126 H 126 H Respiratory 16 16 16 Rate Blood Pressure 97/57 85/54 85/54 O2 Sat by Pulse 97 97 97 Oximetry 06/12/18 06/12/18 04:10 04:20 Temperature 93.5 F L Pulse Rate 129 H 133 H Respiratory 16 16 Rate Blood Pressure 85/54 85/54 O2 Sat by Pulse 97 96 Oximetry Medical Decision Making - Medical Decision Making This patient is 28-year-old woman brought to the hospital by ambulance after what appears to be accidental overdose. Family does indicate they suspect heroin. The patient appeared to have out of Hospital cardiopulmonary arrest with ROSC following ACLS. Discussed with family that the patient will require EEG and neurology consultation, and that this is unavailable here, and they did request after discussion of options that the patient be transferred to [facility]. The patient did develop some hypotension and levo fed started with subsequent stabilization of blood pressure. Case discussed with Dr. Hamilton, who will accept transfer. - Lab Data Result diagrams: 06/12/18 01:16 06/12/18 01:16 Lab Results 06/12/18 06/12/1819 Range/Units 01:15 01:16 01:16 WBC 13.7 H (3.8-10.6) k/uL RBC 3.93 (3.80-5.40) m/uL Hgb 12.0 (11.4-16.0) gm/dL Hct 43.4 (34.0-46.0) % MCV 110.3 H (80.0-100.0) fL MCH 30.4 (25.0-35.0) pg MCHC 27.6 L (31.0-37.0) g/dL RDW 13.1 (11.5-15.5) % Plt Count 279 (150-450) k/uL Neutrophils % 46 % Lymphocytes % 47 % Monocytes % 3 % Eosinophils % 2 % Basophils % 1 % Neutrophils # 6.2 (1.3-7.7) k/uL Lymphocytes # 6.4 H (1.0-4.8) k/uL Monocytes # 0.4 (0-1.0) k/uL Eosinophils # 0.3 (0-0.7) k/uL Basophils # 0.1 (0-0.2) k/uL Manual Slide Review Performed Hypochromasia Marked Macrocytosis Marked Sample Site ABG pH (7.35-7.45) ABG pCO2 (35-45) mmHg ABG pO2 (83-108) mmHg ABG HCO3 (21-25) mmol/L ABG Total CO2 (19-24) mmol/L ABG O2 Saturation (94-97) % ABG Base Excess mmol/L Jose Test FiO2 % Sodium 140 (137-145) mmol/L Potassium 5.4 H (3.5-5.1) mmol/L Chloride 103 (98-107) mmol/L Carbon Dioxide 10 L (22-30) mmol/L Anion Gap 27 mmol/L BUN 13 (7-17) mg/dL Creatinine 1.23 H (0.52-1.04) mg/dL Est GFR (CKD-EPI)AfAm 69 (>60 ml/min/1.73 sqM) Est GFR (CKD-EPI)NonAf 60 (>60 ml/min/1.73 sqM) Glucose 330 H (74-99) mg/dL POC Glucose (mg/dL) 312 H (75-99) mg/dL POC Glu [employer] Supervisor ID Diane Pantoja Lactic Ac Sepsis Rflx Plasma Lactic Acid Gio (0.7-2.0) mmol/L Calcium 9.1 (8.4-10.2) mg/dL Total Bilirubin 0.3 (0.2-1.3) mg/dL AST 558 H (14-36) U/L ALT 662 H (9-52) U/L Alkaline Phosphatase 63 (38-126) U/L Troponin I (0.000-0.034) ng/mL Total Protein 5.9 L (6.3-8.2) g/dL Albumin 3.4 L (3.5-5.0) g/dL Urine HCG, Qual (Not Detectd) Salicylates <1.0 mg/dL Urine Opiates Screen (NotDetected) Ur Oxycodone Screen (NotDetected) Urine Methadone Screen (NotDetected) Ur Propoxyphene Screen (NotDetected) Acetaminophen <10.0 ug/mL Ur Barbiturates Screen (NotDetected) U Tricyclic Antidepress (NotDetected) Ur Phencyclidine Scrn (NotDetected) Ur Amphetamines Screen (NotDetected) U Methamphetamines Scrn (NotDetected) U Benzodiazepines Scrn (NotDetected) Urine Cocaine Screen (NotDetected) U Marijuana (THC) Screen (NotDetected) Serum Alcohol <10 mg/dL 06/12/18 06/12/18 06/12/18 Range/Units 01:16 01:16 01:16 WBC (3.8-10.6) k/uL RBC (3.80-5.40) m/uL Hgb (11.4-16.0) gm/dL Hct (34.0-46.0) % MCV (80.0-100.0) fL MCH (25.0-35.0) pg MCHC (31.0-37.0) g/dL RDW (11.5-15.5) % Plt Count (150-450) k/uL Neutrophils % % Lymphocytes % % Monocytes % % Eosinophils % % Basophils % % Neutrophils # (1.3-7.7) k/uL Lymphocytes # (1.0-4.8) k/uL Monocytes # (0-1.0) k/uL Eosinophils # (0-0.7) k/uL Basophils # (0-0.2) k/uL Manual Slide Review Hypochromasia Macrocytosis Sample Site ABG pH (7.35-7.45) ABG pCO2 (35-45) mmHg ABG pO2 (83-108) mmHg ABG HCO3 (21-25) mmol/L ABG Total CO2 (19-24) mmol/L ABG O2 Saturation (94-97) % ABG Base Excess mmol/L Jose Test FiO2 % Sodium (137-145) mmol/L Potassium (3.5-5.1) mmol/L Chloride (98-107) mmol/L Carbon Dioxide (22-30) mmol/L Anion Gap mmol/L BUN (7-17) mg/dL Creatinine (0.52-1.04) mg/dL Est GFR (CKD-EPI)AfAm (>60 ml/min/1.73 sqM) Est GFR (CKD-EPI)NonAf (>60 ml/min/1.73 sqM) Glucose (74-99) mg/dL POC Glucose (mg/dL) (75-99) mg/dL POC Glu [employer] Supervisor ID Lactic Ac Sepsis Rflx Plasma Lactic Acid Gio 22.9 H* (0.7-2.0) mmol/L Calcium (8.4-10.2) mg/dL Total Bilirubin (0.2-1.3) mg/dL AST (14-36) U/L ALT (9-52) U/L Alkaline Phosphatase (38-126) U/L Troponin I (0.000-0.034) ng/mL Total Protein (6.3-8.2) g/dL Albumin (3.5-5.0) g/dL Urine HCG, Qual Not Detected (Not Detectd) Salicylates mg/dL Urine Opiates Screen Detected H (NotDetected) Ur Oxycodone Screen Detected H (NotDetected) Urine Methadone Screen Not Detected (NotDetected) Ur Propoxyphene Screen Not Detected (NotDetected) Acetaminophen ug/mL Ur Barbiturates Screen Not Detected (NotDetected) U Tricyclic Antidepress Not Detected (NotDetected) Ur Phencyclidine Scrn Not Detected (NotDetected) Ur Amphetamines Screen Not Detected (NotDetected) U Methamphetamines Scrn Not Detected (NotDetected) U Benzodiazepines Scrn Not Detected (NotDetected) Urine Cocaine Screen Not Detected (NotDetected) U Marijuana (THC) Screen Not Detected (NotDetected) Serum Alcohol mg/dL 06/12/18 06/12/18 06/12/18 Range/Units 01:16 02:17 03:36 WBC (3.8-10.6) k/uL RBC (3.80-5.40) m/uL Hgb (11.4-16.0) gm/dL Hct (34.0-46.0) % MCV (80.0-100.0) fL MCH (25.0-35.0) pg MCHC (31.0-37.0) g/dL RDW (11.5-15.5) % Plt Count (150-450) k/uL Neutrophils % % Lymphocytes % % Monocytes % % Eosinophils % % Basophils % % Neutrophils # (1.3-7.7) k/uL Lymphocytes # (1.0-4.8) k/uL Monocytes # (0-1.0) k/uL Eosinophils # (0-0.7) k/uL Basophils # (0-0.2) k/uL Manual Slide Review Hypochromasia Macrocytosis Sample Site Right Radial ABG pH 6.98 L* (7.35-7.45) ABG pCO2 61 H (35-45) mmHg ABG pO2 132 H (83-108) mmHg ABG HCO3 14 L (21-25) mmol/L ABG Total CO2 16 L (19-24) mmol/L ABG O2 Saturation 96.5 (94-97) % ABG Base Excess -17.2 mmol/L Jose Test Yes FiO2 100 % Sodium (137-145) mmol/L Potassium (3.5-5.1) mmol/L Chloride (98-107) mmol/L Carbon Dioxide (22-30) mmol/L Anion Gap mmol/L BUN (7-17) mg/dL Creatinine (0.52-1.04) mg/dL Est GFR (CKD-EPI)AfAm (>60 ml/min/1.73 sqM) Est GFR (CKD-EPI)NonAf (>60 ml/min/1.73 sqM) Glucose (74-99) mg/dL POC Glucose (mg/dL) (75-99) mg/dL POC Glu [employer] Supervisor ID Lactic Ac Sepsis Rflx Y Plasma Lactic Acid Gio (0.7-2.0) mmol/L Calcium (8.4-10.2) mg/dL Total Bilirubin (0.2-1.3) mg/dL AST (14-36) U/L ALT (9-52) U/L Alkaline Phosphatase (38-126) U/L Troponin I 0.024 (0.000-0.034) ng/mL Total Protein (6.3-8.2) g/dL Albumin (3.5-5.0) g/dL Urine HCG, Qual (Not Detectd) Salicylates mg/dL Urine Opiates Screen (NotDetected) Ur Oxycodone Screen (NotDetected) Urine Methadone Screen (NotDetected) Ur Propoxyphene Screen (NotDetected) Acetaminophen ug/mL Ur Barbiturates Screen (NotDetected) U Tricyclic Antidepress (NotDetected) Ur Phencyclidine Scrn (NotDetected) Ur Amphetamines Screen (NotDetected) U Methamphetamines Scrn (NotDetected) U Benzodiazepines Scrn (NotDetected) Urine Cocaine Screen (NotDetected) U Marijuana (THC) Screen (NotDetected) Serum Alcohol mg/dL Critical Care Time Critical Care Time: Yes (40 minutes) Disposition Clinical Impression: Drug overdose Disposition: OTHER INSTITUTION NOT DEFINED Condition: Critical Referrals: Scot Smith MD [Primary Care Provider] - 1-2 days - Out of Hospital Transfer - Req. Specs Out of Hospital Transfer - Requested Specifics: Other Emergency Center ( [facility])
[2018-06-12 01:45] LABS: Basophils # (A) 0.1 k/uL (0-0.2); Basophils % (A) 1 %; Eosinophils # (A) 0.3 k/uL (0-0.7); Eosinophils % (A) 2 %; HCT 43.4 % (34.0-46.0); Hypochromasia Marked; Lymphocytes # (A) 6.4 k/uL (1.0-4.8); Lymphocytes % (A) 47 %; MCH 30.4 pg (25.0-35.0); MCHC 27.6 g/dL (31.0-37.0); MCV 110.3 fL (80.0-100.0); Macrocytosis Marked; Mean Platelet Volume 7.8; Monocytes # (A) 0.4 k/uL (0-1.0); Monocytes % (A) 3 %; Neutrophils # (A) 6.2 k/uL (1.3-7.7); Neutrophils % (A) 46 %; Platelet Count 279 k/uL (150-450); RBC 3.93 m/uL (3.80-5.40); RDW 13.1 % (11.5-15.5); WBC 13.7 k/uL (3.8-10.6)
[2018-06-12 02:00] LABS: ALT 662 U/L (9-52); AST 558 U/L (14-36); Acetaminophen <10.0 ug/mL; Albumin 3.4 g/dL (3.5-5.0); Alcohol <10 mg/dL; Alkaline Phosphatase 63 U/L (38-126); Anion Gap 27 mmol/L; Blood Urea Nitrogen 13 mg/dL (7-17); Calcium 9.1 mg/dL (8.4-10.2); Carbon Dioxide 10 mmol/L (22-30); Chloride 103 mmol/L (98-107); Glucose 330 mg/dL (74-99); Potassium 5.4 mmol/L (3.5-5.1); Salicylate <1.0 mg/dL; Sodium 140 mmol/L (137-145); Total Bilirubin 0.3 mg/dL (0.2-1.3); Total Protein 5.9 g/dL (6.3-8.2)
[2018-06-12 02:07] LABS: Amphetamine Screen,Urine Not Detected (NotDetected); Barbiturate Screen,Urine Not Detected (NotDetected); Benzodiazepines Screen,Urine Not Detected (NotDetected); Cocaine Screen,Urine Not Detected (NotDetected); Methadone Screen, Urine Not Detected (NotDetected); Opiate Screen,Urine Detected (NotDetected); Oxycodone Screen, Urine Detected (NotDetected); Phencyclidine Screen,Urine Not Detected (NotDetected); Tricyclic Antidepressant,Urine Not Detected (NotDetected); Urn Cannabinoid Scrn Not Detected (NotDetected)
[2018-06-12] MEDS ORDERED: SODIUM CHLORIDE 0.9% 1,000 ML IV ONE (02:10)
[2018-06-12] MEDS ORDERED: LORazepam 2 MG/ML INJ IV STA ×2 (02:10→02:35)
--- NOTE | 2018-06-12 02:12 | XR ---
EXAMINATION TYPE: XR chest 1V portable DATE OF EXAM: 06/12/2018 COMPARISON: 10/17/2016 HISTORY: Check tube placement. Respiratory failure. Overdose. TECHNIQUE: Single frontal view of the chest is obtained. FINDINGS: There is no pulmonary airspace edema on the right side more than the left. Endotracheal tu be is 4 cm from the emory. Nasogastric tube is looped in the stomach. There is no pneumothorax. Ther e are chest leads. IMPRESSION: There is new pulmonary edema compared to last exam.
[2018-06-12] MEDS ORDERED: NOREPINEPHRINE 4 MG in SODIUM CHLORIDE 0.9% 250 ML IV ONE (02:27)
--- NOTE | 2018-06-12 02:58 | CT ---
EXAMINATION TYPE: CT brain ha couch con DATE OF EXAM: 06/12/2018 COMPARISON: None HISTORY: ETOH overdose Headache. Neck pain CT DLP: 1229.3 mGycm Automated exposure control for dose reduction was used. TECHNIQUE: CT scan of the head and cervical spine are performed without contrast. FINDINGS: There is some loss of the sulcal pattern. The ventricles are small. This is suggestive of c erebral edema and increased intracranial pressure. There is no mass effect. There is no evidence of intracranial hemorrhage. Calvarium is intact. The skull base is intact. The cervical vertebra have normal spacing and alignment. Posterior elements are intact. The skull bas e is intact. There is no evidence of cervical spine fracture. Endotracheal tube is noted. IMPRESSION: There is loss of the sulci pattern and small ventricles suggestive of cerebral edema. No intracranial hemorrhage. Negative CT scan of the cervical spine.
[2018-06-12 03:39] LABS: ABG Base Excess -17.2 mmol/L; ABG HCO3 14 mmol/L (21-25); ABG Oxygen Saturation 96.5 % (94-97); ABG PCO2 61 mmHg (35-45); ABG PO2 132 mmHg (83-108); ABG TCO2 16 mmol/L (19-24)
[2018-06-12 03:45] LABS: ABG PH 6.98 (7.35-7.45)
[2018-06-12 04:31] VITALS: BP 85/54; PULSE 133; RESP 16; TEMP 93.5
== END 2018-06-12 04:57 | disposition short-term general hospital (02) ==
LOC: EC 01:11
DX: T50.901A Poisoning by unspecified drugs, medicaments and biological substances, accidental (unintentional), initial encounter (principal); I95.9 Hypotension, unspecified; Z88.1 Allergy status to other antibiotic agents; Z88.5 Allergy status to narcotic agent; Z88.6 Allergy status to analgesic agent; Z88.8 Allergy status to other drugs, medicaments and biological substances; Z91.010 Allergy to peanuts; Z88.0 Allergy status to penicillin; Z88.2 Allergy status to sulfonamides
CPT/HCPCS: 36415; 36600; 94002; 93005; 80053; 82805; 83605; 84484; 85025; 81025; 80306; 83520 ×2; 80320; 87070; 87205; 71045; 72125; 70450; 99291; 96365; 96366; 96375; 96361; J2060; 87077; 87186